=== PATIENT | female | born 1940 | race Caucasian/White ===

== ENCOUNTER → 2016-09-23 | Outpatient (CLI) | payer OTHER ==
[~2016-09-23] MED LIST: ALPR0.25 PO; AMLO10TA4 PO; ASPI81TA28 PO; CHOL100010 PO; CITA40TA12 PO; CYAN100020 PO; Cranberry PO; FERR325T51 PO; FISHOIL PO; GLC/500 PO; GLIP-197 PO; HYDR25TA4 PO; LEVO150T PO; LEVO25TA PO; LOSA50TA6 PO; METF500T PO; Magnesium; OMEP20CA59 PO; TAMO20TA47 PO; TRIM100T20 PO; VITACAP37 PO; ZCRT/40 PO
[2016-09-23 10:50] LABS: BASO % 0.4 %; BASO ABS # 0.04 K/uL (0-0.2); COMPLETE YES; EOS % 2.7 %; HEMATOCRIT 37.1 % (37-47); IG% 0.2 %; LYMPH % 23.3 %; LYMPH ABS # 2.28 K/uL (1.2-3.4); MEAN CELL VOLUME 93.9 fL (80-100); MEAN CORPUSCULAR HEMOGLOBIN 31.6 pg (25-34); MEAN CORPUSCULAR HGB CONC 33.7 g/dl (32-36); MEAN PLATELET VOLUME 10.3 fL (7.4-10.4); MONO % 6.3 %; NEUT % 67.1 %; PLATELET COUNT 183 K/uL (130-400); RED BLOOD COUNT 3.95 M/uL (4.2-5.4); WHITE BLOOD COUNT 9.77 K/uL (4.8-10.8)
[2016-09-23 11:22] LABS: ALT/SGPT 45 U/L (12-78); AST/SGOT 30 U/L (15-37); BLOOD UREA NITROGEN 24 mg/dl (7-18); BUN/CREATININE RATIO 19.6 (10-20); CALCIUM 8.8 mg/dl (8.5-10.1); CARBON DIOXIDE 26 mmol/L (21-32); CHLORIDE 108 mmol/L (98-107); GLUCOSE 130 mg/dl (70-99); POTASSIUM 4.4 mmol/L (3.5-5.1); SODIUM 142 mmol/L (136-145)
[2016-09-23 11:24] LABS: ALB/GLOB RATIO 1.1 (0.9-2); ALKALINE PHOSPHATASE 48 U/L (45-117)
--- NOTE | 2016-09-24 08:33 | CODING QUERY NO DIAGNOSIS ---
TREATMENT RENDERED WITHOUT A DIAGNOSIS To promote full compliance with coding requirements relating to patient care, physician participation is requested in all cases of materials engineering technician uncertainty. Please assist us with providing a diagnosis/symptom for the test(s) below: A diagnosis/symptom was not documented on your Order. A valid diagnosis/symptom is required to bill all insurances. Please remember that we are unable to code a diagnosis of rule out, probable, possible, questionable, or suspected. DATE OF SERVICE: 09/23/16 Tests that require a diagnosis: * CBC DIAGNOSIS: * LDH DIAGNOSIS: * COMP. METABOLIC PROFILE DIAGNOSIS: Provider Signature: Date: Thank you Ally Dixon [facility] Information Management Once completed, please kindly fax back to [phone] For questions please call [phone]
== END | disposition home or self-care (01) ==
LOC: C.LAB1850 09:02
PROVIDERS: ATTEND Nurse Practitioner Family
DX: R31.29 Other microscopic hematuria (principal); Z85.3 Personal history of malignant neoplasm of breast

== ENCOUNTER → 2016-09-26 | Outpatient (CLI) | payer OTHER | END | disposition home or self-care (01) | LOC: C.LAB1850 10:21 | PROVIDERS: ATTEND Nurse Practitioner Family | DX: N39.0 Urinary tract infection, site not specified (principal) ==

== ENCOUNTER → 2016-09-30 | Outpatient (CLI) | payer OTHER | END | disposition home or self-care (01) | LOC: C.LAB1850 14:17 | PROVIDERS: ATTEND Nurse Practitioner Adult Health | DX: R30.0 Dysuria (principal) ==

== ENCOUNTER → 2016-11-19 | Outpatient (CLI) | payer OTHER ==
[~2016-11-19] MED LIST changes: +CHOL1TAB42 PO; +CIPR250T5 PO; +CRAN250T; +FERR1TAB62 PO; +FMR25 PO; +LOSA1TAB38 PO; +MAGN400T6 PO; +OMEGCAP2 PO; +SIMV20TA2 PO; -TAMO20TA47 PO; +TAMO20TA9 PO; +TRIM100T PO; -TRIM100T20 PO
[2016-11-19 10:03] LABS: BASO % 0.5 %; BASO ABS # 0.04 K/uL (0-0.2); COMPLETE YES; EOS % 4.8 %; HEMATOCRIT 38.7 % (37-47); IG% 0.3 %; LYMPH % 30.5 %; LYMPH ABS # 2.24 K/uL (1.2-3.4); MEAN CELL VOLUME 95.1 fL (80-100); MEAN CORPUSCULAR HGB CONC 32.6 g/dl (32-36); MONO % 6.3 %; NEUT % 57.6 %; PLATELET COUNT 195 K/uL (130-400); RED BLOOD COUNT 4.07 M/uL (4.2-5.4); WHITE BLOOD COUNT 7.35 K/uL (4.8-10.8)
[2016-11-19 10:17] LABS: ESTIMATED AVERAGE GLUCOSE 148 mg/dl; HA1C FLAG Normal (Normal)
[2016-11-19 10:40] LABS: ALT/SGPT 64 U/L (12-78); BLOOD UREA NITROGEN 23 mg/dl (7-18); BUN/CREATININE RATIO 23.2 (10-20); CALCIUM 8.9 mg/dl (8.5-10.1); CARBON DIOXIDE 26 mmol/L (21-32); CHLORIDE 106 mmol/L (98-107); CREATININE 0.98 mg/dl (0.60-1.20); GLUCOSE 102 mg/dl (70-99); POTASSIUM 4.6 mmol/L (3.5-5.1); SODIUM 140 mmol/L (136-145)
[2016-11-19 10:51] LABS: ALB/GLOB RATIO 1.2 (0.9-2); ALKALINE PHOSPHATASE 58 U/L (45-117); AST/SGOT 59 U/L (15-37); CHOLESTEROL 155 mg/dl (0-200); CHOLESTEROL/HDL RATIO 3.9; HDL CHOLESTEROL 40 mg/dl; LDL CHOLESTEROL CALCULATED 87 mg/dl; TRIGLYCERIDES 139 mg/dl (0-150); VERY LOW DENSITY LIPOPROT CALC 28 mg/dl
[2016-11-19 17:15] LABS: RATIO 50.9 mcg/mg (0-30.0)
== END | disposition home or self-care (01) ==
LOC: C.LAB 09:27
PROVIDERS: ATTEND Internal Medicine
DX: E11.9 Type 2 diabetes mellitus without complications (principal); E03.9 Hypothyroidism, unspecified; I10 Essential (primary) hypertension

== ENCOUNTER → 2017-01-24 | Outpatient (CLI) | payer OTHER ==
[~2017-01-24] MED LIST changes: -CHOL1TAB42 PO; -CIPR250T5 PO; -CRAN250T; -FERR1TAB62 PO; -FMR25 PO; -LOSA1TAB38 PO; -MAGN400T6 PO; -OMEGCAP2 PO; -SIMV20TA2 PO; +TAMO20TA47 PO; -TAMO20TA9 PO; -TRIM100T PO; +TRIM100T20 PO
--- NOTE | 2017-01-24 12:43 | MAMMOGRAPHY REPORT ---
UNILATERAL LEFT DIGITAL SCREENING MAMMOGRAM TOMOSYNTHESIS WITH CAD: 01/24/2017 CLINICAL HISTORY: Asymptomatic. Personal history of breast cancer. TECHNIQUE: Breast tomosynthesis in addition to standard 2D mammography was performed. Current study was also evaluated with a Computer Aided Detection (CAD) system. Left CC and MLO 2-D and tomosynthes is images were obtained. COMPARISON: Comparison is made to exams dated: 01/23/2016 mammogram, 01/17/2015 mammogram, 01/04/2014 ma mmogram, 12/29/2012 mammogram, 12/24/2011 mammogram, and 12/18/2010 mammogram - [facility] ter. BREAST COMPOSITION: The tissue of the left breast is almost entirely fatty. FINDINGS: There are no suspicious masses, calcifications, or areas of architectural distortion noted within the left breast. There has been no significant interval change compared to prior exams. Scat tered benign-appearing calcifications are stable. IMPRESSION: ACR BI-RADS CATEGORY 2: BENIGN There is no mammographic evidence of malignancy in the left breast. A 1 year screening mammogram is r ecommended. The patient will receive written notification of the results. Approximately 10% of breast cancers are not detected with mammography. A negative mammographic report should not delay biopsy if a clinically suggestive mass is present. Renetta Montes M.D. /:01/24/2017 08:11:31 [employer] Operator: Jenni HERNANDEZ(R)(M), [facility] letter sent: Normal 1/2 BI-RADS Code: ACR BI-RADS Category 2: Benign
== END | disposition home or self-care (01) ==
LOC: C.MAMM 07:25
PROVIDERS: ATTEND Internal Medicine
DX: Z12.31 Encounter for screening mammogram for malignant neoplasm of breast (principal); Z85.3 Personal history of malignant neoplasm of breast; Z90.11 Acquired absence of right breast and nipple; Z08 Encounter for follow-up examination after completed treatment for malignant neoplasm

== ENCOUNTER → 2017-02-04 | Outpatient (CLI) | payer OTHER | END | disposition home or self-care (01) | LOC: C.PATHSPEC 17:05 | PROVIDERS: ATTEND Nurse Practitioner Family | DX: R31.29 Other microscopic hematuria (principal) ==

== ENCOUNTER → 2017-02-14 | Outpatient (CLI) | payer OTHER ==
[2017-02-14 09:34] LABS: BASO % 0.6 %; BASO ABS # 0.05 K/uL (0-0.2); COMPLETE YES; EOS % 5.4 %; HEMATOCRIT 37.8 % (37-47); IG% 0.2 %; LYMPH ABS # 2.36 K/uL (1.2-3.4); MEAN CELL VOLUME 94.3 fL (80-100); MEAN CORPUSCULAR HEMOGLOBIN 31.4 pg (25-34); MEAN CORPUSCULAR HGB CONC 33.3 g/dl (32-36); MEAN PLATELET VOLUME 10.4 fL (7.4-10.4); NEUT % 57.8 %; PLATELET COUNT 207 K/uL (130-400); RED BLOOD COUNT 4.01 M/uL (4.2-5.4); WHITE BLOOD COUNT 8.15 K/uL (4.8-10.8)
[2017-02-14 10:12] LABS: ALT/SGPT 53 U/L (12-78); AST/SGOT 41 U/L (15-37); BLOOD UREA NITROGEN 25 mg/dl (7-18); BUN/CREATININE RATIO 25.3 (10-20); CALCIUM 9.5 mg/dl (8.5-10.1); CARBON DIOXIDE 27 mmol/L (21-32); CHLORIDE 105 mmol/L (98-107); GLUCOSE 135 mg/dl (70-99); POTASSIUM 4.8 mmol/L (3.5-5.1); SODIUM 138 mmol/L (136-145)
[2017-02-14 10:15] LABS: ALB/GLOB RATIO 1.2 (0.9-2); ALKALINE PHOSPHATASE 55 U/L (45-117)
== END | disposition home or self-care (01) ==
LOC: C.LAB1850 07:45
PROVIDERS: ATTEND Internal Medicine Hematology & Oncology
DX: C50.919 Malignant neoplasm of unspecified site of unspecified female breast (principal)

== ENCOUNTER → 2017-03-21 | Outpatient (CLI) | payer OTHER ==
[2017-03-21 13:24] LABS: URINE APPEARANCE CLOUDY (CLEAR); URINE BILIRUBIN NEG (NEG); URINE COLOR DK YELLOW; URINE EPITHELIAL CELL AUTO 0-5 /lpf (0-5); URINE NITRITE NEG (NEG); UROBILINOGEN NEG (NEG); ZZUR CULT IF INDIC CLEAN CATCH YES
[2017-03-21 13:31] LABS: MANUAL MICROSCOPIC REQUIRED? NO; REVIEW REQ? NO
[2017-03-21 13:51] LABS: RATIO 130.9 mcg/mg (0-30.0)
== END | disposition home or self-care (01) ==
LOC: C.LAB1850 11:38
PROVIDERS: ATTEND Internal Medicine
DX: R80.9 Proteinuria, unspecified (principal)

== ENCOUNTER → 2017-04-10 | Outpatient (CLI) | payer OTHER | END | disposition home or self-care (01) | LOC: C.LABSPEC 17:02 → C.PATHSPEC 17:19 | PROVIDERS: ATTEND Nurse Practitioner Family | DX: R31.29 Other microscopic hematuria (principal) ==

== ENCOUNTER 2017-05-01 20:03 | Inpatient (IN) | payer OTHER ==
[~2017-05-01] VITALS: Ht 170.2 cm; Wt 95.9 kg
[2017-05-01] MEDS ORDERED: SODIUM CHLORIDE 0.9% 500ML 500 ML IV STA (21:08)
--- NOTE | 2017-05-01 21:11 | EMERGENCY ROOM VISIT NOTE ---
History Report prepared by [place]: Jurgen Elaine Under the Supervision of: Dr. Zander Gil M.D. First contact with patient: 21:00 Chief Complaint: ILLNESS Stated Complaint: SOB,VOMITING,NAUSEA History of Present Illness The patient is a 76 year old female who presents to the Emergency Room with complaints of constant weakness beginning a few days ago. The patient states she was seen at [facility] two days ago and was diagnosed with a UTI. She reports she has been experiencing cold flashes, hot flashes, and intermittent vomiting episodes for the past few days. The patient notes her last vomiting episode was about three hours ago, and she feels immediately warm and cold following her episode. She states she has also been experiencing severe dry mouth. The patient reports she went back to [facility] and was told to come to the ED because they thought her antibiotic was causing her symptoms. She notes they gave her a pill to take for her nausea. The patient states she has been breathing heavily and short of breath for the past few days as well. She reports she has not been taking her medication because she has not been feeling well and did not want to vomit it back up. The patient notes she tried calling her urologist because her UTI is reoccurring, but they never got back to her. She states she has a history of hypertension and anxiety, but she has not been taking her anxiety medication for a week because she ran out. The patient denies fevers, chest pain, new abdominal pain from her UTI symptoms, cough, and congestion. Source of History: patient Onset: few days ago Position: other (global) Quality: other (weakness) Timing: constant Associated Symptoms: + chills, + SOB, + nausea, + vomiting, No fevers, No cough, No chest pain, No abdominal pain Note: Associated symptoms: dry mouth, heavy breathing, hot flashes Denies: congestion Review of Systems See HPI for pertinent positives and negatives. A total of ten systems were reviewed and were otherwise negative. Past Medical & Surgical Medical Problems: (1) Anxiety (2) HTN (hypertension) Family History Patient reports no known family medical history. Social History Smoking Status: Never Smoker Marital Status: Housing Status: lives with family Current/Historical Medications Scheduled Amlodipine Besylate (Norvasc), 10 MG PO QAM Aspirin (Aspirin Ec), 81 MG PO QAM Cholecalciferol (Vitamin D), 5,000 UNITS PO DAILY Citalopram Hydrobromide (Celexa), 40 MG PO HS Cranberry (Vaccinium Macrocarp (Cranberry Extract), 250 MG BID Cyanocobalamin (Vitamin B12), 1 TAB PO QAM Ferrous Sulfate (Ferrous Sulfate), 325 MG PO DAILY Glipizide (Glipizide Er), 0.5 TAB PO BID Hydrochlorothiazide (Hctz), 25 MG PO QAM Letrozole (Femara), 2.5 MG PO DAILY Levothyroxine Sodium (Synthroid), 1 TAB PO QAM Levothyroxine Sodium (Synthroid), 25 MCG PO Q2D Losartan Potassium (Cozaar), 100 MG PO DAILY Magnesium Oxide (Mag-Ox), 400 MG PO DAILY Metformin Hcl (Glucophage), 500 MG PO BREAKFAST Metformin Hcl (Glucophage), 2 TABLETS PO LUNCH AND HS [place]-3 Fatty Acids (Fish Oil), 1,000 MG PO DAILY Omeprazole (Prilosec), 20 MG PO BID Simvastatin (Zocor), 20 MG PO QPM Simvastatin (Zocor), 20 MG PO QPM Tamoxifen (Nolvadex), 20 MG PO QAM Trimethoprim (Proloprim), 100 MG PO HS Vitamin E (E-400), 2 TAB PO BID Scheduled PRN Alprazolam (Xanax), 0.25 MG PO DAILY PRN for Anxiety Allergies Coded Allergies: Sulfa Antibiotics (Verified Allergy, Unknown, HIVES, 05/01/17) Physical Exam Vital Signs Date Time Temp Pulse Resp B/P (MAP) Pulse Ox O2 Delivery O2 Flow Rate FiO2 05/01/17 23:50 85 18 170/90 93 Room Air 05/01/17 23:36 38.8 05/01/17 22:00 87 22 95 Room Air 05/01/17 21:30 84 05/01/17 21:19 Room Air 05/01/17 21:19 Room Air 05/01/17 20:05 36.9 90 20 133/66 95 Room Air Physical Exam GENERAL: Awake, alert, dyspneic, uncomfortably, in no distress HENT: Normocephalic, atraumatic. Oropharynx unremarkable. Dry mucus membranes EYES: Normal conjunctiva. Sclera non-icteric. NECK: Supple. No nuchal rigidity. FROM. No JVD. RESPIRATORY: Clear to auscultation. CARDIAC: Regular rate, normal rhythm. 3/6 murmur. Extremities warm and well perfused. Pulses equal. ABDOMEN: Soft, non-distended. Mild suprapubic tenderness to palpation. No rebound or guarding. No masses. No peritoneal. RECTAL: Deferred. MUSCULOSKELETAL: Chest examination reveals no tenderness. The back is symmetrical on inspection without obvious abnormality. There is no CVA tenderness to palpation. No joint edema. LOWER EXTREMITIES: Calves are equal size bilaterally and non-tender. No edema. No discoloration. NEURO: Normal sensorium. No sensory or motor deficits noted. SKIN: No rash or jaundice noted. Medical Decision & Procedures ER Provider Diagnostic Interpretation: Radiology results as stated below per my review and radiologist interpretation: CHEST ONE VIEW PORTABLE CLINICAL HISTORY: Chest pain and shortness of breath COMPARISON STUDY: Chest radiograph December 19, 2015. FINDINGS: Lung volumes are normal. No pneumothorax or pleural effusion is present. Cardiomediastinal silhouette is stable. There is no consolidation to suggest pneumonia. Mild interstitial thickening is unchanged and likely chronic. IMPRESSION: No change in appearance of the chest. Mild interstitial thickening which is likely chronic. Mild pulmonary edema could appear similar but is considered less likely. Electronically signed by: Josué Norton M.D. 05/01/2017 10:19 PM Dictated Date/Time: 05/01/2017 10:18 PM Laboratory Results 05/01/17 21:33 Red Blood Count 3.94, Mean Corpuscular Volume 91.9, Mean Corpuscular Hemoglobin 32.0, Mean Corpuscular Hemoglobin Concent 34.8, Mean Platelet Volume 9.9, Neutrophils (%) (Auto) 73.2, Lymphocytes (%) (Auto) 10.3, Monocytes (%) (Auto) 16.1, Eosinophils (%) (Auto) 0.0, Basophils (%) (Auto) 0.2, Neutrophils # (Auto ) 7.25, Lymphocytes # (Auto) 1.02, Monocytes # (Auto) 1.59, Eosinophils # (Auto ) 0.00, Basophils # (Auto) 0.02 05/01/17 21:33 Test 05/01/17 21:20 05/01/17 21:33 05/01/17 21:35 Urine Color DK YELLOW Urine Appearance TURBID (CLEAR) Urine pH 6.0 (4.5-7.5) Urine Specific [place] 1.019 (1.000-1.030) Urine Protein 3+ (NEG) Urine Glucose (UA) NEG (NEG) Urine Ketones TRACE (NEG) Urine Occult Blood 2+ (NEG) Urine Nitrite NEG (NEG) Urine Bilirubin NEG (NEG) Urine Urobilinogen NEG (NEG) Urine Leukocyte Esterase LARGE (NEG) Urine WBC (Auto) >30 /hpf (0-5) Urine RBC (Auto) 0-4 /hpf (0-4) Urine Hyaline Casts (Auto) 0 /lpf (0-5) Urine Epithelial Cells (Auto) 0-5 /lpf (0-5) Urine Bacteria (Auto) 4+ (NEG) Urine Pathogenic Casts /lpf (0) Urine Yeast (Auto) (NONE PRSENT) White Blood Count 9.90 K/uL (4.8-10.8) Red Blood Count 3.94 M/uL (4.2-5.4) Hemoglobin 12.6 g/dL (12.0-16.0) Hematocrit 36.2 % (37-47) Mean Corpuscular Volume 91.9 fL (80-100) Mean Corpuscular Hemoglobin 32.0 pg (25-34) Mean Corpuscular Hemoglobin Concent 34.8 g/dl (32-36) Platelet Count 191 K/uL (130-400) Mean Platelet Volume 9.9 fL (7.4-10.4) Neutrophils (%) (Auto) 73.2 % Lymphocytes (%) (Auto) 10.3 % Monocytes (%) (Auto) 16.1 % Eosinophils (%) (Auto) 0.0 % Basophils (%) (Auto) 0.2 % Neutrophils # (Auto) 7.25 K/uL (1.4-6.5) Lymphocytes # (Auto) 1.02 K/uL (1.2-3.4) Monocytes # (Auto) 1.59 K/uL (0.11-0.59) Eosinophils # (Auto) 0.00 K/uL (0-0.5) Basophils # (Auto) 0.02 K/uL (0-0.2) RDW Standard Deviation 44.8 fL (36.4-46.3) RDW Coefficient of Variation 13.4 % (11.5-14.5) Immature Granulocyte % (Auto) 0.2 % Immature Granulocyte # (Auto) 0.02 K/uL (0.00-0.02) Anion Gap 7.0 mmol/L (3-11) Est Creatinine Clear Calc Drug Dose 40.4 ml/min Estimated GFR () 42.9 Estimated GFR (Non- 37.0 BUN/Creatinine Ratio 22.2 (10-20) Calcium Level 9.3 mg/dl (8.5-10.1) Total Bilirubin 0.6 mg/dl (0.2-1) Direct Bilirubin 0.2 mg/dl (0-0.2) Aspartate Amino Transf (AST/SGOT) 20 U/L (15-37) Alanine Aminotransferase (ALT/SGPT) 29 U/L (12-78) Alkaline Phosphatase 65 U/L (45-117) Troponin I < 0.015 ng/ml (0-0.045) Pro-B-Type Natriuretic Peptide 1328 pg/ml (0-1800) Total Protein 7.6 gm/dl (6.4-8.2) Albumin 3.4 gm/dl (3.4-5.0) Lipase 54 U/L (73-393) Procalcitonin 1.17 ng/ml (0-0.5) Laboratory results reviewed by me Medications Administered Medications (Trade) Dose Ordered Sig/[place] Route Start Time Stop Time Status Last Admin Dose Admin Sodium Chloride 500 ml @ 999 mls/hr Q31M STAT IV 05/01/17 21:08 05/01/17 21:38 DC 05/01/17 21:45 999 MLS/HR Ondansetron HCl (Zofran Inj) 4 mg NOW STAT IV 05/01/17 23:07 05/01/17 23:09 DC 05/01/17 23:14 4 MG Sodium Chloride 1,000 ml @ 999 mls/hr Q1H1M STAT IV 05/01/17 23:07 05/02/17 00:07 DC 05/01/17 23:33 999 MLS/HR Vancomycin HCl 1800 mg/Sodium Chloride 536 ml @ 200 mls/hr ONE STAT IV 05/01/17 23:07 05/02/17 01:47 DC 05/02/17 00:41 200 MLS/HR Piperacillin Sod/ Tazobactam Sod (Zosyn Iv) 3.375 gm NOW STAT IV 05/01/17 23:07 05/01/17 23:09 DC 05/01/17 23:33 3.375 GM Acetaminophen 100 ml @ 400 mls/hr NOW STAT IV 05/01/17 23:36 05/01/17 23:50 DC 05/01/17 23:44 400 MLS/HR ECG Indication: weakness Rate (beats per minute): 77 Rhythm: normal sinus Findings: no acute ischemic change, other (Normal axis, normal intervals) ED Course 2102: The patient was evaluated in room B04B. A complete history and physical exam was performed. 2107: Ordered Sodium Chloride 500 ml @ 999 mls/hr IV 2303: Upon reexamination, the patient was resting and still had discomfort. I discussed the test results and treatment plan with her. The patient will be evaluated for further management. 2306: Ordered Piperacillin Sod/Tazobactam Sod 3.375gm IV, Vancomycin HCl 1800mg/ Sodium Chloride 536 ml @ 200 mls/hr, Sodium Chloride 1000 ml @ 999 mls/hr IV, Ondansetron HCl 4mg IV 2311: I discussed the patient's case with the [facility] Hospitalist. The patient will be evaluated for further management and care. Medical Decision I reviewed the patient's past medical history, medications, and the nursing notes as described above. Differential diagnosis: pneumonia, bronchitis, ACS, PE , CHF, UTI, pyelonephritis, dehydration, electrolyte abnormality. The patient is a 76-year-old woman who presents emergency Department with worsening urinary symptoms and dyspnea in the setting of being treated outpatient for a UTI per history of present illness. On arrival the patient appears uncomfortable, dyspneic, rate in the low 100s, vital signs otherwise stable. WBC within normal limits, lactate elevated to 2.1., UA grossly positive. CXR unremarkable. Patient having persistent nausea and dry heaving. Heart rate improved with IV fluids to 80s. Given the patient's symptoms in the setting of the elevated lactate and UTI will treat for early sepsis with broad-spectrum antibiotics. Case was discussed with the admitting team will admit the patient for further management. Medication Reconcilliation Current Medication List: was personally reviewed by me Blood Pressure Screening Patient's blood pressure: Normal blood pressure Blood pressure disposition: Did not require urgent referral Consults Time Called: 2306 Consulting Physician: [facility] Hospitalist Returned Call: [phone] I discussed the patient's case with the [facility] Hospitalist. The patient will be evaluated for further management and care. Impression Primary Impression: UTI (urinary tract infection) Additional Impression: Sepsis Critical Care I have personally spent greater than 35 minutes of critical care time in the direct management of this patient. This includes bedside care, interpretation of diagnostic studies, and testing, discussion with consultants, patient, and family members, and other required patient management activities. This 35 minutes is in excess of all separately billable procedures. Scribe Attestation The scribe's documentation has been prepared under my direction and personally reviewed by me in its entirety. I confirm that the note above accurately reflects all work, treatment, procedures, and medical decision making performed by me. Departure Information Dispostion Being Evaluated By Hospitalist Referrals RV. Urbina MD (PCP) Patient Instructions My [facility] Problem Qualifiers
[2017-05-01] MEDS ORDERED: SIMV20TA2 PO (21:29)
[2017-05-01] MEDS ORDERED: CHOL1TAB42 PO (21:29)
[2017-05-01] MEDS ORDERED: CRAN250T (21:29)
[2017-05-01] MEDS ORDERED: LOSA1TAB38 PO (21:29)
[2017-05-01] MEDS ORDERED: FERR325T PO (21:29)
[2017-05-01] MEDS ORDERED: FMR25 PO (21:29)
[2017-05-01] MEDS ORDERED: MAGN400T6 PO (21:29)
[2017-05-01] MEDS ORDERED: OMEGCAP2 PO (21:29)
[2017-05-01 22:07] LABS: BASO % 0.2 %; BASO ABS # 0.02 K/uL (0-0.2); COMPLETE YES; HEMATOCRIT 36.2 % (37-47); IG% 0.2 %; LYMPH % 10.3 %; LYMPH ABS # 1.02 K/uL (1.2-3.4); MEAN CELL VOLUME 91.9 fL (80-100); MEAN CORPUSCULAR HGB CONC 34.8 g/dl (32-36); MEAN PLATELET VOLUME 9.9 fL (7.4-10.4); MONO % 16.1 %; NEUT % 73.2 %; PLATELET COUNT 191 K/uL (130-400); RED BLOOD COUNT 3.94 M/uL (4.2-5.4)
[2017-05-01 22:17] LABS: URINE APPEARANCE TURBID (CLEAR); URINE BILIRUBIN NEG (NEG); URINE COLOR DK YELLOW; URINE NITRITE NEG (NEG); URINE SPECIFIC GRAVITY 1.019 (1.000-1.030); UROBILINOGEN NEG (NEG); ZZUR CULT IF INDIC CLEAN CATCH YES
--- NOTE | 2017-05-01 22:21 | DIAGNOSTIC IMAGING REPORT ---
CHEST ONE VIEW PORTABLE CLINICAL HISTORY: Chest pain and shortness of breath COMPARISON STUDY: Chest radiograph December 19, 2015. FINDINGS: Lung volumes are normal. No pneumothorax or pleural effusion is present. Cardiomediastinal silhouette is stable. There is no consolidation to suggest pneumonia. Mild interstitial thickening is unchanged and likely chronic. IMPRESSION: No change in appearance of the chest. Mild interstitial thickening which is likely chronic. Mild pulmonary edema could appear similar but is considered less likely. Electronically signed by: Josué Norton M.D. 05/01/2017 10:19 PM Dictated Date/Time: 05/01/2017 10:18 PM
[2017-05-01 22:22] LABS: MANUAL MICROSCOPIC REQUIRED? NO; REVIEW REQ? YES
[2017-05-01 22:26] LABS: ALT/SGPT 29 U/L (12-78); AST/SGOT 20 U/L (15-37); BLOOD UREA NITROGEN 31 mg/dl (7-18); BUN/CREATININE RATIO 22.2 (10-20); CALCIUM 9.3 mg/dl (8.5-10.1); CARBON DIOXIDE 25 mmol/L (21-32); CHLORIDE 101 mmol/L (98-107); CREATININE 1.38 mg/dl (0.60-1.20); GLUCOSE 179 mg/dl (70-99); POTASSIUM 3.7 mmol/L (3.5-5.1); SODIUM 133 mmol/L (136-145)
[2017-05-01 22:31] LABS: ALKALINE PHOSPHATASE 65 U/L (45-117)
[2017-05-01 22:48] LABS: URINE EPITHELIAL CELL AUTO 0-5 /lpf (0-5)
[2017-05-01] MEDS ORDERED: PIPERACILLIN/TAZOBACTAM 3.375 GM/100ML D5W IV STA (23:07)
[2017-05-01] MEDS ORDERED: VANCOMYCIN INJ 1,800 MG in SODIUM CHLORIDE 0.9% 500ML 500 ML IV STA (23:07)
[2017-05-01] MEDS ORDERED: SODIUM CHLORIDE 0.9% 1000ML 1,000 ML IV STA (23:07)
[2017-05-01] MEDS ORDERED: ONDANSETRON INJ 2 MG/ML 2 ML VIAL IV STA (23:07)
[2017-05-01] MEDS ORDERED: ACETAMINOPHEN IV 100 ML IV STA (23:36)
--- NOTE | 2017-05-01 23:59 | History and Physical ---
History & Physical Date & Time of Service: May 01, 2017 at 23:59 Chief Complaint: Sob,Vomiting,Nausea Primary Care Physician: RV. Urbina MD History of Present Illness Source: patient, hospital records This is a 76 yo f with a history of DM, HTN that presents to us with N&V, generalized weakness. She states that her symptoms originally started a few days prior. She went to [facility] two days prior and she was diagnosed with a UTI and started on Trimethorpim. She had worsening of symptoms which included nausea and vomiting, generalized weakness and ongoing dysuria. She went to [facility] again tonight however she was recommended to come to the ED for evaluation. She currently denies any pain however she states that she feels "achy". She was compliant with her antibiotic. Past Medical/Surgical History Anxiety HTN Hyperlipidemia Hypothyroidism Breast ca s/p left mastectomy; remission Family History Patient reports no known family medical history. Social History Smoking Status: Never Smoker Smokeless Tobacco Use: No Alcohol Use: none Drug Use: none Marital Status: Housing status: lives with family Immunizations History of Influenza Vaccine: Yes Influenza Vaccine Date: Apr 09, 2011 History of Tetanus Vaccine?: Yes Tetanus Immunization Date: Apr 13, 2012 History of Pneumococcal: Yes History of Hepatitis B Vaccine: No Multi-Drug Resistant Organisms History of MDRO: No Allergies Coded Allergies: Sulfa Antibiotics (Verified Allergy, Unknown, HIVES, 05/01/17) Home Medications Scheduled Amlodipine Besylate (Norvasc), 10 MG PO QAM Aspirin (Aspirin Ec), 81 MG PO QAM Cholecalciferol (Vitamin D), 5,000 UNITS PO DAILY Citalopram Hydrobromide (Celexa), 40 MG PO HS Cranberry (Vaccinium Macrocarp (Cranberry Extract), 250 MG BID Cyanocobalamin (Vitamin B12), 1 TAB PO QAM Ferrous Sulfate (Ferrous Sulfate), 325 MG PO DAILY Glipizide (Glipizide Er), 0.5 TAB PO BID Hydrochlorothiazide (Hctz), 25 MG PO QAM Letrozole (Femara), 2.5 MG PO DAILY Levothyroxine Sodium (Synthroid), 1 TAB PO QAM Levothyroxine Sodium (Synthroid), 25 MCG PO Q2D Losartan Potassium (Cozaar), 100 MG PO DAILY Magnesium Oxide (Mag-Ox), 400 MG PO DAILY Metformin Hcl (Glucophage), 500 MG PO BREAKFAST Metformin Hcl (Glucophage), 2 TABLETS PO LUNCH AND HS [place]-3 Fatty Acids (Fish Oil), 1,000 MG PO DAILY Omeprazole (Prilosec), 20 MG PO BID Simvastatin (Zocor), 20 MG PO QPM Simvastatin (Zocor), 20 MG PO QPM Tamoxifen (Nolvadex), 20 MG PO QAM Trimethoprim (Proloprim), 100 MG PO HS Vitamin E (E-400), 2 TAB PO BID Scheduled PRN Alprazolam (Xanax), 0.25 MG PO DAILY PRN for Anxiety Review of Systems Constitutional: + chills, + sweats, + weakness, + fatigue, No fever Eyes: No worsening of vision ENT: No hearing loss Respiratory: No cough, No sputum, No wheezing, No shortness of breath, No dyspnea on exertion, No dyspnea at rest Cardiovascular: No chest pain Abdomen: + nausea, + vomiting, No pain, No diarrhea, No constipation Musculoskeletal: + muscle pain, No joint pain Genitourinary - Female: + dysuria, No hematuria Neurologic: + weakness, No numbness/tingling, No balance problems Psychiatric: + anxiety, No depression symptoms Endocrine: + fatigue Hematologic / Lymphatic: No abnormal bleeding/bruising Integumentary: No rash Physical Exam Vital Signs Date Time Temp Pulse Resp B/P (MAP) Pulse Ox O2 Delivery O2 Flow Rate FiO2 05/01/17 23:50 85 18 170/90 93 Room Air 05/01/17 23:36 38.8 05/01/17 22:00 87 22 95 Room Air 05/01/17 21:30 84 05/01/17 21:19 Room Air 05/01/17 21:19 Room Air 05/01/17 20:05 36.9 90 20 133/66 95 Room Air General Appearance: + mild distress Head: normocephalic, atraumatic Eyes: normal inspection ENT: normal ENT inspection Neck: supple Respiratory/Chest: normal breath sounds, no respiratory distress, no accessory muscle use Cardiovascular: normal peripheral pulses, + tachycardia, + systolic murmur (3/6 ) Abdomen/GI: normal bowel sounds, non tender, soft Back: no CVA tenderness Extremities/Musculoskelatal: no calf tenderness, no pedal edema, normal range of motion Neurologic/Psych: alert, normal mood/affect, oriented x 3 Skin: normal color, warm/dry, no rash Lymphatic: no adenopathy Diagnostics Laboratory Results Results Past 24 Hours Test 05/01/17 21:20 05/01/17 21:33 05/01/17 21:35 Range/Units Urine Color DK YELLOW Urine Appearance TURBID CLEAR Urine pH 6.0 4.5-7.5 Urine Specific [place] 1.019 1.000-1.030 Urine Protein 3+ NEG Urine Glucose (UA) NEG NEG Urine Ketones TRACE NEG Urine Occult Blood 2+ NEG Urine Nitrite NEG NEG Urine Bilirubin NEG NEG Urine Urobilinogen NEG NEG Urine Leukocyte Esterase LARGE NEG Urine WBC (Auto) >30 0-5 /hpf Urine RBC (Auto) 0-4 0-4 /hpf Urine Hyaline Casts (Auto) 0 0-5 /lpf Urine Epithelial Cells (Auto) 0-5 0-5 /lpf Urine Bacteria (Auto) 4+ NEG Urine Pathogenic Casts 0 /lpf Urine Yeast (Auto) NONE PRSENT White Blood Count 9.90 4.8-10.8 K/uL Red Blood Count 3.94 4.2-5.4 M/uL Hemoglobin 12.6 12.0-16.0 g/dL Hematocrit 36.2 37-47 % Mean Corpuscular Volume 91.9 80-100 fL Mean Corpuscular Hemoglobin 32.0 25-34 pg Mean Corpuscular Hemoglobin Concent 34.8 32-36 g/dl Platelet Count 191 130-400 K/uL Mean Platelet Volume 9.9 7.4-10.4 fL Neutrophils (%) (Auto) 73.2 % Lymphocytes (%) (Auto) 10.3 % Monocytes (%) (Auto) 16.1 % Eosinophils (%) (Auto) 0.0 % Basophils (%) (Auto) 0.2 % Neutrophils # (Auto) 7.25 1.4-6.5 K/uL Lymphocytes # (Auto) 1.02 1.2-3.4 K/uL Monocytes # (Auto) 1.59 0.11-0.59 K/uL Eosinophils # (Auto) 0.00 0-0.5 K/uL Basophils # (Auto) 0.02 0-0.2 K/uL RDW Standard Deviation 44.8 36.4-46.3 fL RDW Coefficient of Variation 13.4 11.5-14.5 % Immature Granulocyte % (Auto) 0.2 % Immature Granulocyte # (Auto) 0.02 0.00-0.02 K/uL Sodium Level 133 136-145 mmol/L Potassium Level 3.7 3.5-5.1 mmol/L Chloride Level 101 98-107 mmol/L Carbon Dioxide Level 25 21-32 mmol/L Anion Gap 7.0 3-11 mmol/L Blood Urea Nitrogen 31 7-18 mg/dl Creatinine 1.38 0.60-1.20 mg/dl Est Creatinine Clear Calc Drug Dose 40.4 ml/min Estimated GFR () 42.9 Estimated GFR (Non- 37.0 BUN/Creatinine Ratio 22.2 10-20 Random Glucose 179 70-99 mg/dl Calcium Level 9.3 8.5-10.1 mg/dl Total Bilirubin 0.6 0.2-1 mg/dl Direct Bilirubin 0.2 0-0.2 mg/dl Aspartate Amino Transf (AST/SGOT) 20 15-37 U/L Alanine Aminotransferase (ALT/SGPT) 29 12-78 U/L Alkaline Phosphatase 65 45-117 U/L Troponin I < 0.015 0-0.045 ng/ml Pro-B-Type Natriuretic Peptide 1328 0-1800 pg/ml Total Protein 7.6 6.4-8.2 gm/dl Albumin 3.4 3.4-5.0 gm/dl Lipase 54 73-393 U/L Lactic Acid Level 2.3 0.4-2.0 mmol/L Microbiology Results 05/01/17 Blood Culture, Received Pending 05/01/17 Blood Culture, Received Pending 05/01/17 Urine Culture, Received Pending Diagnostic Radiology CHEST ONE VIEW PORTABLE CLINICAL HISTORY: Chest pain and shortness of breath COMPARISON STUDY: Chest radiograph December 19, 2015. FINDINGS: Lung volumes are normal. No pneumothorax or pleural effusion is present. Cardiomediastinal silhouette is stable. There is no consolidation to suggest pneumonia. Mild interstitial thickening is unchanged and likely chronic. IMPRESSION: No change in appearance of the chest. Mild interstitial thickening which is likely chronic. Mild pulmonary edema could appear similar but is considered less likely. Impression Assessment and Plan This is a 76 yo f that is suffering from sepsis secondary to a urinary source. Will assess kidneys with a USG. Patient has been placed on broad spectrum abx at this time with blood and urine cultures pending. Sepsis most likely secondary to urinary source - tele admission - continue zosyn and vanco from ed - repeat lactate and add procalcitonin - received 1500 cc NSS in the ED - Zofran for nausea CBC recheck in the am however leukocytosis is not noted - urine culture and blood culture pending - renal USG BEHZAD on CKD III - NSS @ 125 cc/h - recheck BMP in the am Hyponatremia - NSS @ 125 cc/h as noted above DMII - insulin ISS and BSG Ac/ HS - Metformin and Glipizide held HTN - Amlodipine 10 mg daily HCTZ 25 mg cont'd Hyperlipidemia - continue simvastatin 20 mg daily Anxiety - Zanax 2.5 mg prn - Citalopram 40 mg daily Breast cancer; remission - continue Femara and Tamoxifen GERD - Protonix 40 mg daily Hypothyroidism - continue synthroid; 150 mcg daily with 25 mcg q2days DVT Prophylaxis - SCD, heparin bid Attending Addendum: I have physically seen and examined this patient, have directed the resident's medical activities, and agree with the H&P as noted above with the following exceptions as noted. The patient is awake, alert and oriented 3, well-developed and well-nourished , normocephalic and atraumatic, lying in bed and in no acute distress. HEENT--PERRL, EOMI, mucous membranes and oropharynx dry. Neck--supple, no JVD or bruits, thyroid normal, trachea midline, no adenopathy. Heart--tachycardic and regular. Systolic murmurs. No rubs or gallops. Lungs--clear bilaterally with good air movement, no respiratory distress, no accessory muscle use. Abdomen--normal bowel sounds and soft, nontender and nondistended, no hernias or masses, no organomegaly. Extremities--no cyanosis, clubbing or edema. There are good distal pulses b/l. Dermatologic--normal skin turgor, normal color, warm and dry, no abnormal lymph nodes, no rash. Neurologic--cranial nerves II through XII grossly intact. Rheumatologic--normal range of motion. Psychiatric--normal affect. Assessment and Plan: Sepsis secondary to urinary tract infection/acute on chronic kidney disease/ hyponatremia-- Admit to telemetry for close monitoring of blood pressure. Continue Zosyn and vancomycin begun in the ED. Zofran 4 mg IV every 6 hours when necessary. Follow urine culture and blood culture and sensitivities. Order renal ultrasound to assess for any renal complications such as perinephric abscess. Continue to hydrate with IV fluids. Hold HCTZ. Continue amlodipine. Repeat BMP and magnesium level in a.m. Diabetes mellitus-- Hold metformin and glipizide. Place on Accu-Cheks before meals and at bedtime with NovoLog coverage per scale. Chronic interstitial lung disease/intermittent borderline hypoxia while in the ED-- Monitor oxygen closely while on telemetry, would start nasal cannula oxygen and pulse ox is consistently below 91%. Level of Care Telemetry Advanced Directives Existing Advance Directive: No Existing Living Will: No Existing Power of Instant Printer Operator: No Resuscitation Status FULL RESUSCITATION VTE Prophylaxis VTE Risk Assessment Done? Y/N: Yes Risk Level: Moderate Given or contraindicated: Unfractionated heparin SQ, SCD's Social Service Consult None Apply Note Total Time: Critical Care 30 - 74 minutes Additional Copies To RV. Urbina MD
[2017-05-02] VITALS (7 sets, daily range): BP systolic 126–171; BP diastolic 61–80; PULSE 64–89; TEMP 36.7–37.5; O2SAT 90–95; Ht 170.2 cm; Wt 95.9 kg
[2017-05-02] MEDS ORDERED: ALPRAZOLAM 0.25 MG TAB PO PRN
[2017-05-02] MEDS ORDERED: ACETAMINOPHEN 325 MG TAB PO PRN
[2017-05-02] MEDS ORDERED: SODIUM CHLORIDE 0.9% 1000ML 1,000 ML IV ONE
[2017-05-02] MEDS ORDERED: MAGNESIUM HYDROXIDE SUSP 30 ML UDC PO PRN
[2017-05-02] MEDS ORDERED: ONDANSETRON INJ 2 MG/ML 2 ML VIAL IV PRN
[2017-05-02] MEDS ORDERED: ACETAMINOPHEN IV 650 MG in EMPTY BAG 0 ML IV PRN
[2017-05-02] MEDS ORDERED: POLYETHYLENE (MIRALAX) 17 GM PACK PO PRN
[2017-05-02] MEDS ORDERED: ALUMINUM/MAGNESIUM/SIMETH (MAALOX MAX) 30 ML UDC PO PRN
[2017-05-02] MEDS ORDERED: VANCOMYCIN CONSULT ACTIVE PRN (02:30)
[2017-05-02] MEDS ORDERED: PIPERACILL/TAZOBAC CONSULT ACTIVE PRN (02:30)
[2017-05-02] MEDS: SODIUM CHLORIDE 0.9% 1000ML 1,000 ML IV SCH ×3 (02:45→19:27)
[2017-05-02] MEDS: PIPERACILL/TAZOBAC IV 3.375 GM in DEXTROSE 5% 100ML 100 ML IV SCH ×3 (04:17→19:44)
[2017-05-02] MEDS ORDERED: INFLUENZA VACCINE HIGH DOSE 65+ 0.5 ML SYR IM. ONE (04:45)
[2017-05-02] MEDS: LEVOTHYROXINE 150 MCG TAB PO SCH (05:42)
[2017-05-02] MEDS ORDERED: LEVOTHYROXINE 25 MCG TAB PO SCH (06:00)
[2017-05-02 07:04] LABS: BASO % 0.2 %; BASO ABS # 0.02 K/uL (0-0.2); COMPLETE YES; HEMATOCRIT 36.9 % (37-47); IG% 0.2 %; LYMPH % 13.3 %; LYMPH ABS # 1.34 K/uL (1.2-3.4); MEAN CELL VOLUME 92.3 fL (80-100); MEAN CORPUSCULAR HEMOGLOBIN 31.8 pg (25-34); MEAN CORPUSCULAR HGB CONC 34.4 g/dl (32-36); MEAN PLATELET VOLUME 9.8 fL (7.4-10.4); MONO % 16.7 %; NEUT % 69.6 %; PLATELET COUNT 183 K/uL (130-400); WHITE BLOOD COUNT 10.05 K/uL (4.8-10.8)
[2017-05-02 07:10] LABS: INR 1.1 (0.9-1.1); PARTIAL THROMBOPLASTIN RATIO 1.1; PROTHROMBIN TIME (PATIENT) 11.7 SECONDS (9.0-12.0)
--- NOTE | 2017-05-02 07:15 | DIAGNOSTIC IMAGING REPORT ---
ULTRASOUND KIDNEYS AND BLADDER CLINICAL HISTORY: Urinary tract infection. Sepsis. COMPARISON STUDY: Renal ultrasound dated 11/21/2015. Abdominal CT dated 07/06/2012. TECHNIQUE: Real-time, grayscale, and color flow sonography of the kidneys and bladder is performed. Images are reviewed in the transverse and longitudinal planes. FINDINGS: Kidneys: The kidneys are normal in size and echotexture. The right kidney measures 10.9 x 4.0 x 5.0 cm and the left kidney measures 11.6 x 5.9 x 6.1 cm. There is no hydronephrosis. No shadowing renal calculi are identified. There is no sonographic evidence of contour deforming renal mass lesion. Parapelvic cysts are suggested on the left. No perinephric fluid is identified. Bladder: The bladder is decompressed. Intraluminal debris is noted. Ureteral jets were not seen. Upper abdomen: Survey images of the liver show hepatomegaly and severe hepatic steatosis. IMPRESSION: 1. The kidneys are normal in size and without hydronephrosis. 2. The bladder is largely decompressed and contains intraluminal debris. Correlation with clinical findings and urinalysis will be required. 3. Hepatomegaly and severe hepatic steatosis. Electronically signed by: Jonel Krishna M.D. 05/02/2017 7:13 AM Dictated Date/Time: 05/02/2017 7:11 AM
[2017-05-02 07:26] LABS: BUN/CREATININE RATIO 19.6 (10-20); CREATININE 1.35 mg/dl (0.60-1.20); POTASSIUM 4.1 mmol/L (3.5-5.1)
[2017-05-02 07:29] LABS: ALB/GLOB RATIO 0.8 (0.9-2)
[2017-05-02] MEDS: PANTOprazole SOD 40 MG TAB PO SCH ×2 (07:58→19:46)
[2017-05-02] MEDS: AMLODIPINE BESYLATE 5 MG TAB PO SCH (07:59)
[2017-05-02] MEDS: FERROUS SULFATE 325 MG TAB PO SCH (07:59)
[2017-05-02] MEDS: OMEGA-3 (PURIFIED FISH OIL) 1 GM CAP PO SCH (07:59)
[2017-05-02] MEDS: ASPIRIN 81 MG ECTAB PO SCH (07:59)
[2017-05-02] MEDS: LETROZOLE 2.5 MG TAB PO SCH (07:59)
[2017-05-02] MEDS: CHOLECALCIFEROL 1000 INTER.UNIT TAB PO SCH (08:00)
[2017-05-02] MEDS: TAMOXIFEN CITRATE 10 MG TAB PO SCH (08:01)
[2017-05-02] MEDS: TOCOPHERYL, DL-ALPHA 400 INTER.UNIT CAP PO SCH ×2 (08:01→19:46)
[2017-05-02] MEDS: CYANOCOBALAMIN 500 MCG TAB (VIT B-12) PO SCH (08:02)
[2017-05-02] MEDS: MAGNESIUM OXIDE 400 MG TAB PO SCH (08:02)
[2017-05-02] MEDS: LOSARTAN POTASSIUM 50 MG TAB PO SCH (08:02)
[2017-05-02] MEDS: HEPARIN SOD 5000 UNIT/0.5 ML CARP SQ SCH ×2 (08:37→21:08)
[2017-05-02] MEDS ORDERED: CRANBERRY SCH (09:00)
[2017-05-02] MEDS ORDERED: HYDROCHLOROTHIAZIDE 25 MG TAB PO SCH (09:00)
[2017-05-02] MEDS ORDERED: VANCOMYCIN INJ 1,000 MG in SODIUM CHLORIDE 0.9% 250ML 250 ML IV SCH (09:00)
[2017-05-02] MEDS ORDERED: PHENAZOPYRIDINE HCL 200 MG TAB PO STA (10:38)
[2017-05-02] MEDS ORDERED: PHENAZOPYRIDINE HCL 100 MG TAB PO PRN (10:45)
[2017-05-02] MEDS ORDERED: RIVAROXABAN 20 MG TAB PO SCH (17:00)
--- NOTE | 2017-05-02 17:23 | Family Medicine Progress Note ---
Progress Note Date of Service May 02, 2017. Subjective Pt evaluation today including: conversation w/ patient, physical exam, chart review, lab review, review of studies, conversation w/ computer consultant, review of inpatient medication list Patient currently sitting comfortably out of bed. She states that her nausea has improved with antiemetic medication. She has had no vomiting episodes since admission. She is no longer feeling febrile or having chills. She states is still having urinary symptoms and would like medication for relief. She also continues to have urgency, frequency, nocturia. She denies any xochilt hematuria. When asked about her breathing she states people keep asking her if she is feeling short of breath but states that she is feeling comfortable. She has never had a sleep study or used CPAP/BiPAP, but she has been told that she snores. She is tolerating diet and stooling appropriately. All Other Systems: Reviewed and Negative Objective Vital Signs Date Time Temp Pulse Resp B/P (MAP) Pulse Ox O2 Delivery O2 Flow Rate FiO2 05/02/17 12:23 37.5 89 20 151/76 (101) 95 Room Air 05/02/17 12:00 Room Air 05/02/17 08:11 36.8 22 171/61 (97) 94 Room Air 05/02/17 08:00 Room Air 05/02/17 04:00 Room Air 05/02/17 03:47 36.9 64 20 126/70 (88) 94 Room Air 05/02/17 01:38 36.8 78 18 142/65 94 Room Air 05/02/17 01:20 79 29 90 05/02/17 01:05 79 25 96 05/02/17 01:00 77 22 05/02/17 00:45 83 26 94 05/02/17 00:39 146/50 05/02/17 00:34 37.6 05/01/17 23:50 85 18 170/90 93 Room Air 05/01/17 23:36 38.8 05/01/17 22:00 87 22 95 Room Air 05/01/17 21:30 84 05/01/17 21:19 Room Air 05/01/17 21:19 Room Air 05/01/17 20:05 36.9 90 20 133/66 95 Room Air Physical Exam General Appearance: WD/WN, no apparent distress, + pertinent finding Eyes: normal inspection ENT: hearing grossly normal, pharynx normal Neck: supple, no adenopathy Respiratory/Chest: lungs clear, normal breath sounds, no respiratory distress, no accessory muscle use, + pertinent finding (breathing appears effortful) Cardiovascular: regular rate, rhythm, no edema, + systolic murmur, + normal peripheral pulses Abdomen: normal bowel sounds, non tender, soft, + pertinent finding (no CVA tenderness) Extremities: no pedal edema, no calf tenderness Neurologic/Psychiatric: alert, normal mood/affect, oriented x 3 Skin: normal color, warm/dry, no rash Laboratory Results Results Past 24 Hours Test 05/01/17 21:20 05/01/17 21:33 05/01/17 21:35 05/02/17 00:34 Range/Units Urine Color DK YELLOW Urine Appearance TURBID CLEAR Urine pH 6.0 4.5-7.5 Urine Specific [place] 1.019 1.000-1.030 Urine Protein 3+ NEG Urine Glucose (UA) NEG NEG Urine Ketones TRACE NEG Urine Occult Blood 2+ NEG Urine Nitrite NEG NEG Urine Bilirubin NEG NEG Urine Urobilinogen NEG NEG Urine Leukocyte Esterase LARGE NEG Urine WBC (Auto) >30 0-5 /hpf Urine RBC (Auto) 0-4 0-4 /hpf Urine Hyaline Casts (Auto) 0 0-5 /lpf Urine Epithelial Cells (Auto) 0-5 0-5 /lpf Urine Bacteria (Auto) 4+ NEG Urine Pathogenic Casts 0 /lpf Urine Yeast (Auto) NONE PRSENT White Blood Count 9.90 4.8-10.8 K/uL Red Blood Count 3.94 4.2-5.4 M/uL Hemoglobin 12.6 12.0-16.0 g/dL Hematocrit 36.2 37-47 % Mean Corpuscular Volume 91.9 80-100 fL Mean Corpuscular Hemoglobin 32.0 25-34 pg Mean Corpuscular Hemoglobin Concent 34.8 32-36 g/dl Platelet Count 191 130-400 K/uL Mean Platelet Volume 9.9 7.4-10.4 fL Neutrophils (%) (Auto) 73.2 % Lymphocytes (%) (Auto) 10.3 % Monocytes (%) (Auto) 16.1 % Eosinophils (%) (Auto) 0.0 % Basophils (%) (Auto) 0.2 % Neutrophils # (Auto) 7.25 1.4-6.5 K/uL Lymphocytes # (Auto) 1.02 1.2-3.4 K/uL Monocytes # (Auto) 1.59 0.11-0.59 K/uL Eosinophils # (Auto) 0.00 0-0.5 K/uL Basophils # (Auto) 0.02 0-0.2 K/uL RDW Standard Deviation 44.8 36.4-46.3 fL RDW Coefficient of Variation 13.4 11.5-14.5 % Immature Granulocyte % (Auto) 0.2 % Immature Granulocyte # (Auto) 0.02 0.00-0.02 K/uL Sodium Level 133 136-145 mmol/L Potassium Level 3.7 3.5-5.1 mmol/L Chloride Level 101 98-107 mmol/L Carbon Dioxide Level 25 21-32 mmol/L Anion Gap 7.0 3-11 mmol/L Blood Urea Nitrogen 31 7-18 mg/dl Creatinine 1.38 0.60-1.20 mg/dl Est Creatinine Clear Calc Drug Dose 40.4 ml/min Estimated GFR () 42.9 Estimated GFR (Non- 37.0 BUN/Creatinine Ratio 22.2 05-02 Random Glucose 179 70-99 mg/dl Calcium Level 9.3 8.5-10.1 mg/dl Total Bilirubin 0.6 0.2-1 mg/dl Direct Bilirubin 0.2 0-0.2 mg/dl Aspartate Amino Transf (AST/SGOT) 20 15-37 U/L Alanine Aminotransferase (ALT/SGPT) 29 12-78 U/L Alkaline Phosphatase 65 45-117 U/L Troponin I < 0.015 0-0.045 ng/ml Pro-B-Type Natriuretic Peptide 1328 0-1800 pg/ml Total Protein 7.6 6.4-8.2 gm/dl Albumin 3.4 3.4-5.0 gm/dl Lipase 54 73-393 U/L Lactic Acid Level 2.3 1.2 0.4-2.0 mmol/L Procalcitonin 1.17 0-0.5 ng/ml Test 05/02/17 06:29 05/02/17 06:47 05/02/17 11:25 Range/Units White Blood Count 10.05 4.8-10.8 K/uL Red Blood Count 4.00 4.2-5.4 M/uL Hemoglobin 12.7 12.0-16.0 g/dL Hematocrit 36.9 37-47 % Mean Corpuscular Volume 92.3 80-100 fL Mean Corpuscular Hemoglobin 31.8 25-34 pg Mean Corpuscular Hemoglobin Concent 34.4 32-36 g/dl Platelet Count 183 130-400 K/uL Mean Platelet Volume 9.8 7.4-10.4 fL Neutrophils (%) (Auto) 69.6 % Lymphocytes (%) (Auto) 13.3 % Monocytes (%) (Auto) 16.7 % Eosinophils (%) (Auto) 0.0 % Basophils (%) (Auto) 0.2 % Neutrophils # (Auto) 6.99 1.4-6.5 K/uL Lymphocytes # (Auto) 1.34 1.2-3.4 K/uL Monocytes # (Auto) 1.68 0.11-0.59 K/uL Eosinophils # (Auto) 0.00 0-0.5 K/uL Basophils # (Auto) 0.02 0-0.2 K/uL RDW Standard Deviation 45.6 36.4-46.3 fL RDW Coefficient of Variation 13.5 11.5-14.5 % Immature Granulocyte % (Auto) 0.2 % Immature Granulocyte # (Auto) 0.02 0.00-0.02 K/uL Prothrombin Time 11.7 9.0-12.0 SECONDS Prothromb Time International Ratio 1.1 0.9-1.1 Activated Partial Thromboplast Time 29.3 21.0-31.0 SECONDS Partial Thromboplastin Ratio 1.1 Sodium Level 137 136-145 mmol/L Potassium Level 4.1 3.5-5.1 mmol/L Chloride Level 106 98-107 mmol/L Carbon Dioxide Level 23 21-32 mmol/L Anion Gap 8.0 3-11 mmol/L Blood Urea Nitrogen 27 7-18 mg/dl Creatinine 1.35 0.60-1.20 mg/dl Est Creatinine Clear Calc Drug Dose 42.2 ml/min Estimated GFR () 44.1 Estimated GFR (Non- 38.0 BUN/Creatinine Ratio 19.6 10-20 Random Glucose 154 70-99 mg/dl Calcium Level 9.0 8.5-10.1 mg/dl Total Bilirubin 0.6 0.2-1 mg/dl Aspartate Amino Transf (AST/SGOT) 27 15-37 U/L Alanine Aminotransferase (ALT/SGPT) 31 12-78 U/L Alkaline Phosphatase 63 45-117 U/L Total Protein 7.5 6.4-8.2 gm/dl Albumin 3.2 3.4-5.0 gm/dl Globulin 4.3 2.5-4.0 gm/dl Albumin/Globulin Ratio 0.8 0.9-2 Bedside Glucose 138 129 70-90 mg/dl Microbiology Results 05/01/17 Blood Culture, Received Pending 05/01/17 Blood Culture, Received Pending 05/01/17 Urine Culture - Preliminary, Resulted Gram Negative Bacilli Assessment and Plan This is a 76 yo F with pMHx DMII, HTN, CKD, HLD that was admitted with sepsis secondary to a urinary source, after failure of outpatient treatment with trimethoprim. Patient placed on broad spectrum abx UTI with sepsis - Lactic acid WNL, procal elevated. Renal US showed kidneys are normal in size and without hydronephrosis, bladder with intraluminal debris, and hepatomegaly and severe hepatic steatosis. - Continue Zosyn. Vancomycin discontinued due to urine gram stain showing gram negative bacilli - Zofran for nausea - Pyridium for dysuria - Trace urine and blood culture - NSS @ 125 cc/h - decrease rate to 75 Obesity - Patient admits to being told she snores. - Nocturnal pulse oximetry test ordered. Follow up on results tomorrow Known systolic murmur - unable to trace any recent echo. will check in pcp chart BEHZAD on CKD III - NSS @ 125 cc/h - Trend BMP in the am Hyponatremia - NSS @ 125 cc/h as noted above T2DM - ISS with BSG AC/ HS - Metformin and Glipizide held HTN - Amlodipine 10mg daily - HCTZ 25mg held Hyperlipidemia - Continue simvastatin 20mg daily Anxiety - Citalopram 40 mg daily - Zanax 2.5 mg PRN Breast cancer; remission - Continue Femara and Tamoxifen GERD - Protonix 40 mg daily Hypothyroidism - TSH 2.04 on 11/29/16 - Continue Synthroid 150 mcg daily with 25 mcg q2days DVT Prophylaxis - Heparin BID - SCD Continued [facility] stay due to: multiple IV medications needed Discharge planning: home Resident Tracking Resident Involvement: Resident Care Provided Care Provided: Adult Hospital Medicine Reviewed: Pt Seen/Exam by Me Constitutional: denies: fever Respiratory: negative: short of breath Cardiovascular: denies chest pain Gastrointestinal/Abdominal: negative: abdominal pain General Appearance: no apparent distress Respiratory: lungs clear, no respiratory distress Cardiovascular: regular rate, rhythm Gastrointestinal: normal bowel sounds, non tender, soft Neurologic/Psychiatric: alert, oriented x 3 Skin Characteristics: warm/dry Assessment/Plan Resident Physician Supervision Note: I independently interviewed and examined the patient and verified the barrow history and physical, reviewed labs and image studies, discussed the case with the resident Dr. Berger and agree with the findings and care plan.
[2017-05-02] MEDS ORDERED: SIMVASTATIN 20 MG TAB PO SCH (21:00)
[2017-05-02] MEDS ORDERED: CITALOPRAM 40 MG TAB PO SCH (21:00)
[2017-05-02] MEDS ORDERED: ALPRAZOLAM 0.25 MG TAB PO ONE (22:00)
[2017-05-03] MEDS: PIPERACILL/TAZOBAC IV 3.375 GM in DEXTROSE 5% 100ML 100 ML IV SCH (03:49)
[2017-05-03] MEDS: SODIUM CHLORIDE 0.9% 1000ML 1,000 ML IV SCH (06:10)
[2017-05-03] MEDS: LEVOTHYROXINE 150 MCG TAB PO SCH (06:10)
[2017-05-03] MEDS: AMLODIPINE BESYLATE 5 MG TAB PO SCH (07:57)
[2017-05-03] MEDS: TOCOPHERYL, DL-ALPHA 400 INTER.UNIT CAP PO SCH (07:57)
[2017-05-03] MEDS: MAGNESIUM OXIDE 400 MG TAB PO SCH (07:59)
[2017-05-03] MEDS: TAMOXIFEN CITRATE 10 MG TAB PO SCH (07:59)
[2017-05-03] MEDS: LETROZOLE 2.5 MG TAB PO SCH (07:59)
[2017-05-03] MEDS: ASPIRIN 81 MG ECTAB PO SCH (08:00)
[2017-05-03] MEDS: OMEGA-3 (PURIFIED FISH OIL) 1 GM CAP PO SCH (08:00)
[2017-05-03] MEDS: CHOLECALCIFEROL 1000 INTER.UNIT TAB PO SCH (08:00)
[2017-05-03] MEDS: PANTOprazole SOD 40 MG TAB PO SCH (08:01)
[2017-05-03] MEDS: LOSARTAN POTASSIUM 50 MG TAB PO SCH (08:01)
[2017-05-03] MEDS: CYANOCOBALAMIN 500 MCG TAB (VIT B-12) PO SCH (08:01)
[2017-05-03] MEDS: FERROUS SULFATE 325 MG TAB PO SCH (08:01)
[2017-05-03 08:06] LABS: BASO % 0.1 %; BASO ABS # 0.01 K/uL (0-0.2); COMPLETE YES; EOS % 0.2 %; HEMATOCRIT 33.1 % (37-47); IG% 0.4 %; LYMPH % 13.5 %; LYMPH ABS # 1.13 K/uL (1.2-3.4); MEAN CELL VOLUME 91.2 fL (80-100); MEAN CORPUSCULAR HEMOGLOBIN 30.3 pg (25-34); MEAN CORPUSCULAR HGB CONC 33.2 g/dl (32-36); MEAN PLATELET VOLUME 10.6 fL (7.4-10.4); MONO % 17.1 %; NEUT % 68.7 %; PLATELET COUNT 150 K/uL (130-400); RED BLOOD COUNT 3.63 M/uL (4.2-5.4); WHITE BLOOD COUNT 8.35 K/uL (4.8-10.8)
[2017-05-03] MEDS: HEPARIN SOD 5000 UNIT/0.5 ML CARP SQ SCH (08:07)
[2017-05-03 08:10] VITALS: BP 135/70; PULSE 75; TEMP 36.6; O2SAT 93
[2017-05-03 08:30] LABS: BUN/CREATININE RATIO 16.2 (10-20); CALCIUM 8.3 mg/dl (8.5-10.1); CREATININE 1.13 mg/dl (0.60-1.20); POTASSIUM 3.5 mmol/L (3.5-5.1)
[2017-05-03] MEDS ORDERED: CPR250 PO ×2 (09:29→10:14)
[2017-05-03] MEDS ORDERED: CIPROFLOXACIN 250 MG TAB PO SCH (09:30)
--- NOTE | 2017-05-03 09:35 | Discharge Instructions ---
Discharge Instructions Date of Service May 03, 2017. Admission Reason for Admission: Sepsis, Uti Discharge Discharge Diagnosis / Problem: UTI Discharge Goals Goal(s): Decrease discomfort, Improve function, Increase independence, Improve disease control, Improve nutritional status, Learn about illness Activity Recommendations Activity Limitations: per Instructions/Follow-up section . Instructions / Follow-Up Instructions / Follow-Up Follow up with your Primary Care Provider within one week. You have been diagnosed with a UTI. The bacteria that grew from your urine was called Klebsiella. This bacteria was resistant to Trimethoprim and Nitrofurantoin. The bacteria was sensitive to Ciprofloxacin and Amikacin. You are being discharged on a 5 day course of Ciprofloxacin. Take Ciprofloxacin every 12 hours until all tablets are finished. You will be given one dose of Ciprofloxacin today at 10am, take your second dose tonight around 10pm. Information on UTIs and Ciprofloxacin will be attached to your discharge package. You may resume all of your other medications. If you experience new burning while peeing or severe fevers please see your PCP immediately or come to the ER. Current Hospital Diet Patient's current hospital diet: Diabetes Type 2 Diet Discharge Diet Recommended Diet: Diabetes Type 2 Diet Pending Studies Studies pending at discharge: no Medical Emergencies . Who to Call and When: Medical Emergencies: If at any time you feel your situation is an emergency, please call 911 immediately. . Non-Emergent Contact Non-Emergency issues call your: Primary Care Provider . . "Provider Documentation" section prepared by Don Camarena. . VTE Core Measure Inpt VTE Proph given/why not?: Unfractionated heparin SQ, SCD's Resident Involvement: Resident Care Provided Care Provided: Adult Hospital Medicine
--- NOTE | 2017-05-03 09:45 | Discharge Summary ---
Discharge Summary Date of Service May 03, 2017. (Don Camarena M.D.) Discharge Summary Admission Date: May 01, 2017 at 23:54 Discharge Date: May 03, 2017 Discharge Disposition: Home Principal Diagnosis: UTI Immunizations: Have You Had Influenza Vaccine: Yes Influenza Vaccine Date: Apr 09, 2011 History of Tetanus Vaccine?: Yes Tetanus Immunization Date: Apr 13, 2012 History of Pneumococcal: Yes History of Hepatitis B Vaccine: No Procedures: ULTRASOUND KIDNEYS AND BLADDER CLINICAL HISTORY: Urinary tract infection. Sepsis. COMPARISON STUDY: Renal ultrasound dated 11/21/2015. Abdominal CT dated 07/06/2012. TECHNIQUE: Real-time, grayscale, and color flow sonography of the kidneys and bladder is performed. Images are reviewed in the transverse and longitudinal planes. FINDINGS: Kidneys: The kidneys are normal in size and echotexture. The right kidney measures 10.9 x 4.0 x 5.0 cm and the left kidney measures 11.6 x 5.9 x 6.1 cm. There is no hydronephrosis. No shadowing renal calculi are identified. There is no sonographic evidence of contour deforming renal mass lesion. Parapelvic cysts are suggested on the left. No perinephric fluid is identified. Bladder: The bladder is decompressed. Intraluminal debris is noted. Ureteral jets were not seen. Upper abdomen: Survey images of the liver show hepatomegaly and severe hepatic steatosis. IMPRESSION: 1. The kidneys are normal in size and without hydronephrosis. 2. The bladder is largely decompressed and contains intraluminal debris. Correlation with clinical findings and urinalysis will be required. 3. Hepatomegaly and severe hepatic steatosis. (Don Camarena M.D.) Medication Reconciliation New Medications: Ciprofloxacin (Ciprofloxacin HCl) 250 Mg Tab 1 TAB PO Q12 for 5 Days, #10 TAB Continued Medications: Alprazolam (Xanax) 0.25 Mg Tab 0.25 MG PO DAILY PRN for Anxiety Amlodipine Besylate (Norvasc) 10 Mg Tab 10 MG PO QAM, TAB Aspirin (Aspirin Ec) 81 Mg Tab 81 MG PO QAM Cholecalciferol (Vitamin D) 5,000 Unit Tab 5000 UNITS PO DAILY Citalopram Hydrobromide (Celexa) 40 Mg Tab 40 MG PO HS Cranberry (Vaccinium Macrocarp (Cranberry Extract) 250 Mg Tab 250 MG BID Cyanocobalamin (Vitamin B12) 1,000 Mcg Tab 1 TAB PO QAM Ferrous Sulfate (Ferrous Sulfate) 325 Mg Tab 325 MG PO DAILY Glipizide (Glipizide Er) 5 Mg Tab 0.5 TAB PO BID Hydrochlorothiazide (Hctz) 25 Mg Tab 25 MG PO QAM, TAB Letrozole (Femara) 2.5 Mg Tab 2.5 MG PO DAILY, TAB Levothyroxine Sodium (Synthroid) 150 Mcg Tab 1 TAB PO QAM Levothyroxine Sodium (Synthroid) 25 Mcg Tab 25 MCG PO Q2D, TAB Losartan Potassium (Cozaar) 100 Mg Tab 100 MG PO DAILY, TAB Magnesium Oxide (Mag-Ox) 400 Mg Tab 400 MG PO DAILY, TAB Metformin Hcl (Glucophage) 500 Mg Tab 500 MG PO BREAKFAST Metformin Hcl (Glucophage) 500 Mg Tab 2 TABLETS PO LUNCH AND HS, TAB [place]-3 Fatty Acids (Fish Oil) 1 Cap Cap 1000 MG PO DAILY Omeprazole (Prilosec) 20 Mg Capcr 20 MG PO BID Simvastatin (Zocor) 20 Mg Tab 20 MG PO QPM, TAB Simvastatin (Zocor) 20 Mg Tab 20 MG PO QPM, TAB Tamoxifen (Nolvadex) 20 Mg Tab 20 MG PO QAM, TAB Vitamin E (E-400) 400 Unit Cap 2 TAB PO BID Discontinued Medications: Trimethoprim (Proloprim) 100 Mg Tab 100 MG PO HS Discharge Exam The patient was seen and examined at bedside. No acute overnight events. States she feels better than the previoius day. IVF NSS were running at bedside. Pt denies any urinary symptoms. See ROS below. Plan of care was described to the patient and all questions were answered. Review of Systems: Constitutional: No fever, No chills Respiratory: No cough, No sputum, No wheezing, No shortness of breath Cardiovascular: No chest pain Abdomen: No pain, No nausea, No vomiting, No diarrhea, No constipation Musculoskeletal: No joint pain Genitourinary - Female: No dysuria, No urinary frequency, No urinary urgency , No urinary incontinence, No urinary retention, No hematuria, No rash, No vaginal itching Neurologic: No memory loss Psychiatric: No depression symptoms Integumentary: No rash Physical Exam General Appearance: WD/WN, no apparent distress, + pertinent finding Eyes: normal inspection ENT: hearing grossly normal, pharynx normal Neck: supple, no adenopathy Respiratory/Chest: lungs clear, normal breath sounds, no respiratory distress, no accessory muscle use, + pertinent finding (breathing appears effortful) Cardiovascular: regular rate, rhythm, no edema, + systolic murmur, + normal peripheral pulses Abdomen: normal bowel sounds, non tender, soft, + pertinent finding (no CVA tenderness) Extremities: no pedal edema, no calf tenderness Neurologic/Psychiatric: alert, normal mood/affect, oriented x 3 Skin: normal color, warm/dry, no rash (Don Camarena M.D.) no concerns. feeling ready to go home Review of Systems: Constitutional: No fever Respiratory: No shortness of breath Cardiovascular: No chest pain Abdomen: No pain, No nausea Physical Exam: General Appearance: no apparent distress Respiratory/Chest: lungs clear, no respiratory distress Cardiovascular: regular rate, rhythm Abdomen / GI: normal bowel sounds, non tender, soft Neurologic/Psychiatric: alert, oriented x 3 Skin: warm/dry (Tahmina Georges M.D.) Hospital Course 76F with a pMHx DMII, HTN, CKD, HLD that was admitted with sepsis secondary to a urinary source, after failure of outpatient treatment with trimethoprim. Patient placed on Vanco and Zosyn (narrowed to Zosyn) until urine culture results returned. Klebsiella was grown from the urine culture that was resistant to Bactrim and Macrobid. Pt was discharged on a 5 day course of Ciprofloxacin 250mg BID x 5 days. She was asymptomatic on discharge (no dysuria , no hematuria, has a good energy level). Return instructions were reviewed with the patient and she was told to follow up with her PCP (Dr. Barnes) in one week. Pt had a portal pulse ox study due to snoring done in the hospital. The results are : SPO2 reading 91% and HR 88bpm. Portable pulse ox SPO2 reading 93% and 88bpm. Total Time Spent: Greater than 30 minutes (31 minutes) This includes examination of the patient, discharge planning, medication reconciliation, and communication with other providers. (Don Camarena M.D.) Resident Physician Supervision Note: I independently interviewed and examined the patient and verified the barrow history and physical, reviewed labs and image studies, discussed the case with the resident Dr. Camarena and agree with the findings and care plan. Total Time Spent: Greater than 30 minutes (35) (Tahmina Georges M.D.) Discharge Instructions Please refer to the electronic Patient Visit Report (Discharge Instructions) for additional information. (Don Camarena M.D.) Follow-Up Follow up with Dr. Mela Barnes within one week. (Don Camarena M.D.) Additional Copies To RV. Urbina MD Resident Involvement: Resident Care Provided Care Provided: [facility] (Don Camarena M.D.)
[2017-05-03 10:06] VITALS: BP 135/70; PULSE 75; TEMP 36.6; O2SAT 93
== END 2017-05-03 11:47 | disposition home or self-care (01) | DRG 872 ==
LOC: C.EDB 20:04 → C.2T 23:54 → ENRESERV 05-02 00:06 → C.MS4W 05-02 17:17
PROVIDERS: ADMIT Hospitalist; ATTEND Family Medicine
DX: A41.9 Sepsis, unspecified organism (principal); N39.0 Urinary tract infection, site not specified; N17.9 Acute kidney failure, unspecified; E87.1 Hypo-osmolality and hyponatremia; Z79.82 Long term (current) use of aspirin; E11.9 Type 2 diabetes mellitus without complications; F41.9 Anxiety disorder, unspecified; E78.5 Hyperlipidemia, unspecified; E03.9 Hypothyroidism, unspecified; N18.3 Chronic kidney disease, stage 3 (moderate); K21.9 Gastro-esophageal reflux disease without esophagitis; I12.9 Hypertensive chronic kidney disease with stage 1 through stage 4 chronic kidney disease, or unspecified chronic kidney disease; R16.0 Hepatomegaly, not elsewhere classified; K76.0 Fatty (change of) liver, not elsewhere classified; E66.9 Obesity, unspecified; Z85.3 Personal history of malignant neoplasm of breast; Z90.12 Acquired absence of left breast and nipple

== ENCOUNTER → 2017-05-08 | Outpatient (CLI) | payer OTHER ==
[~2017-05-08] MED LIST changes: -CHOL100010 PO; +CHOL1TAB42 PO; +CIPR250T5 PO; +CRAN250T; -Cranberry PO; +FERR1TAB62 PO; -FERR325T51 PO; -FISHOIL PO; +FMR25 PO; +LOSA1TAB38 PO; -LOSA50TA6 PO; +MAGN400T6 PO; -Magnesium; +OMEGCAP2 PO; +SIMV20TA2 PO; -TAMO20TA47 PO; +TAMO20TA9 PO; -TRIM100T20 PO; -ZCRT/40 PO
== END | disposition home or self-care (01) ==
LOC: C.LABSPEC 12:45
PROVIDERS: ATTEND Physician Assistant
DX: R39.9 Unspecified symptoms and signs involving the genitourinary system (principal)

== ENCOUNTER → 2017-05-22 | Outpatient (CLI) | payer OTHER | END | disposition home or self-care (01) | LOC: C.LABSPEC 17:16 | PROVIDERS: ATTEND Urology | DX: N39.0 Urinary tract infection, site not specified (principal); R39.15 Urgency of urination; R39.9 Unspecified symptoms and signs involving the genitourinary system ==

== ENCOUNTER → 2017-05-27 | Outpatient (CLI) | payer OTHER ==
[2017-05-27 09:37] LABS: ESTIMATED AVERAGE GLUCOSE 131 mg/dl; HA1C FLAG Normal (Normal)
[2017-05-27 09:50] LABS: ALT/SGPT 28 U/L (12-78); AST/SGOT 18 U/L (15-37); BLOOD UREA NITROGEN 23 mg/dl (7-18); BUN/CREATININE RATIO 23.2 (10-20); CALCIUM 9.1 mg/dl (8.5-10.1); CARBON DIOXIDE 27 mmol/L (21-32); CHLORIDE 105 mmol/L (98-107); CREATININE 0.99 mg/dl (0.60-1.20); GLUCOSE 108 mg/dl (70-99); POTASSIUM 4.3 mmol/L (3.5-5.1); SODIUM 140 mmol/L (136-145)
[2017-05-27 09:53] LABS: ALKALINE PHOSPHATASE 63 U/L (45-117); CHOLESTEROL 120 mg/dl (0-200); CHOLESTEROL/HDL RATIO 3.1; HDL CHOLESTEROL 39 mg/dl; LDL CHOLESTEROL CALCULATED 56 mg/dl; TRIGLYCERIDES 125 mg/dl (0-150); VERY LOW DENSITY LIPOPROT CALC 25 mg/dl
== END | disposition home or self-care (01) ==
LOC: C.LAB1850 07:32
PROVIDERS: ATTEND Internal Medicine
DX: E11.9 Type 2 diabetes mellitus without complications (principal); E55.9 Vitamin D deficiency, unspecified

== ENCOUNTER → 2017-08-08 | Outpatient (CLI) | payer OTHER ==
[2017-08-08 09:51] LABS: BASO % 0.7 %; BASO ABS # 0.05 K/uL (0-0.2); EOS ABS # 0.36 K/uL (0-0.5); HEMATOCRIT 36.5 % (37-47); IG# 0.02 K/uL (0.00-0.02); LYMPH % 28.1 %; LYMPH ABS # 2.02 K/uL (1.2-3.4); MEAN CELL VOLUME 93.4 fL (80-100); MEAN CORPUSCULAR HEMOGLOBIN 30.7 pg (25-34); MEAN CORPUSCULAR HGB CONC 32.9 g/dl (32-36); MEAN PLATELET VOLUME 10.3 fL (7.4-10.4); MONO % 5.7 %; MONO ABS # 0.41 K/uL (0.11-0.59); NEUT % 60.2 %; NEUT ABS # 4.33 K/uL (1.4-6.5); PLATELET COUNT 236 K/uL (130-400); RED CELL DISTRIBUTION WIDTH SD 47.4 fL (36.4-46.3); WHITE BLOOD COUNT 7.19 K/uL (4.8-10.8)
[2017-08-08 10:08] LABS: ALBUMIN 3.7 gm/dl (3.4-5.0); ALT/SGPT 29 U/L (12-78); BLOOD UREA NITROGEN 25 mg/dl (7-18); CALCIUM 9.4 mg/dl (8.5-10.1); CARBON DIOXIDE 25 mmol/L (21-32); CREATININE 1.05 mg/dl (0.60-1.20); GLUCOSE 155 mg/dl (70-99); POTASSIUM 4.4 mmol/L (3.5-5.1); SODIUM 138 mmol/L (136-145)
[2017-08-08 10:11] LABS: ALKALINE PHOSPHATASE 59 U/L (45-117); AST/SGOT 17 U/L (15-37); TOTAL PROTEIN 7.2 gm/dl (6.4-8.2)
== END | disposition home or self-care (01) ==
LOC: C.LAB1850 07:39
PROVIDERS: ATTEND Internal Medicine Hematology & Oncology
DX: Z85.3 Personal history of malignant neoplasm of breast (principal); Z08 Encounter for follow-up examination after completed treatment for malignant neoplasm

== ENCOUNTER → 2017-10-22 | Outpatient (CLI) | payer OTHER ==
[~2017-10-22] MED LIST changes: +CIPR250T23 PO; -CIPR250T5 PO
== END | disposition home or self-care (01) ==
LOC: C.LABSPEC 16:49
PROVIDERS: ATTEND Physician Assistant
DX: R39.15 Urgency of urination (principal)

== ENCOUNTER → 2017-11-27 | Outpatient (CLI) | payer OTHER ==
[~2017-11-27] MED LIST changes: -CIPR250T23 PO; +CIPR250T26 PO
[2017-11-27 10:24] LABS: BASO % 0.7 %; BASO ABS # 0.05 K/uL (0-0.2); EOS % 4.3 %; HEMATOCRIT 39.5 % (37-47); HEMOGLOBIN 13.2 g/dL (12.0-16.0); IG# 0.02 K/uL (0.00-0.02); LYMPH ABS # 1.87 K/uL (1.2-3.4); MEAN CELL VOLUME 90.8 fL (80-100); MEAN CORPUSCULAR HEMOGLOBIN 30.3 pg (25-34); MEAN CORPUSCULAR HGB CONC 33.4 g/dl (32-36); MEAN PLATELET VOLUME 9.7 fL (7.4-10.4); MONO % 6.5 %; MONO ABS # 0.45 K/uL (0.11-0.59); NEUT % 61.2 %; NEUT ABS # 4.23 K/uL (1.4-6.5); PLATELET COUNT 235 K/uL (130-400); RED CELL DISTRIBUTION WIDTH CV 13.8 % (11.5-14.5); RED CELL DISTRIBUTION WIDTH SD 45.8 fL (36.4-46.3); WHITE BLOOD COUNT 6.92 K/uL (4.8-10.8)
[2017-11-27 10:43] LABS: ALBUMIN 3.8 gm/dl (3.4-5.0); ALKALINE PHOSPHATASE 76 U/L (45-117); ALT/SGPT 33 U/L (12-78); AST/SGOT 22 U/L (15-37); BLOOD UREA NITROGEN 24 mg/dl (7-18); CALCIUM 9.2 mg/dl (8.5-10.1); CARBON DIOXIDE 26 mmol/L (21-32); CHOLESTEROL 158 mg/dl (0-200); CREATININE 1.19 mg/dl (0.60-1.20); GLUCOSE 133 mg/dl (70-99); LDL CHOLESTEROL CALCULATED 89 mg/dl; POTASSIUM 4.9 mmol/L (3.5-5.1); SODIUM 139 mmol/L (136-145); TOTAL PROTEIN 7.6 gm/dl (6.4-8.2)
[2017-11-27 11:08] LABS: HEMOGLOBIN A1C 6.5 % (4.5-5.6)
== END | disposition home or self-care (01) ==
LOC: C.LAB1850 09:03
PROVIDERS: ATTEND Internal Medicine
DX: E11.9 Type 2 diabetes mellitus without complications (principal); E55.9 Vitamin D deficiency, unspecified; Z86.2 Personal history of diseases of the blood and blood-forming organs and certain disorders involving the immune mechanism

== ENCOUNTER 2021-01-22 10:27 | Observation (INO) ==
[2021-01-22 11:11] LABS: Basophils # (auto) 0.03 K/uL (0-0.2); Basophils % (auto) 0.3 %; Eosinophils # (auto) 0.04 K/uL (0-0.5); Eosinophils % (auto) 0.4 %; Hematocrit (blood only) 40.1 % (37-47); Hemoglobin 13.5 g/dL (12.0-16.0); Immature Granulocytes # (auto) 0.02 K/uL (0.00-0.02); Immature Granulocytes % (auto) 0.2 %; Lymphocytes # (auto) 2.39 K/uL (1.2-3.4); Lymphocytes % (auto) 26.2 %; Mean Corpuscular Hemoglobin 31.2 pg (25-34); Mean Corpuscular Hgb Conc 33.7 g/dL (32-36); Mean Corpuscular Volume 92.6 fL (80-100); Mean Platelet Volume 10.4 fL (7.4-10.4); Monocytes # (auto) 0.65 K/uL (0.11-0.59); Monocytes % (auto) 7.1 %; Neutrophils # (auto) 5.99 K/uL (1.4-6.5); Neutrophils % (auto) 65.8 %; Platelet Count 243 K/uL (130-400); RDW Coefficient of Variation 13.3 % (11.5-14.5); Red Blood Count 4.33 M/uL (4.2-5.4); White Blood Count 9.12 K/uL (4.8-10.8)
[2021-01-22 11:19] LABS: Albumin Level 4.2 gm/dl (3.4-5.0); BUN Creatinine Ratio 20.9 (10-20); Calcium 9.7 mg/dl (8.5-10.1); Est GFR (African American) 53.2 ml/min; Est GFR (Non-African American) 45.9 ml/min
[2021-01-22 11:22] LABS: Albumin Globulin Ratio 1.2 (0.9-2); Bilirubin,Total 0.7 mg/dl (0.2-1); Globulin 3.4 gm/dl (2.5-4.0); Total Protein 7.6 gm/dl (6.4-8.2)
[2021-01-22] MEDS ORDERED: MECLIZINE HCL 25 MG TAB PO STA (12:26)
[2021-01-22] MEDS ORDERED: SODIUM CHLORIDE 0.9% 1000ML 1,000 ML IV SCH (12:30)
[2021-01-22] MEDS ORDERED: OPTIRAY 320 125ml IV ONE (13:39)
--- NOTE | 2021-01-22 14:11 | CT Scan Report ---
HEAD CTA HISTORY: dizziness TECHNIQUE: Multiaxial CT images of the head were performed both before and after the intravenous admi nistration of contrast to evaluate the major cerebral vessels. Maximum intensity projection images we re also obtained. A dose lowering technique was utilized adhering to the principles of ALARA. COMPARISON: None. FINDINGS: There is no mass, hematoma, midline shift, or acute infarct. Mild atrophy and microvascular ischemic changes are noted. There is no significant stenosis, occlusion, or aneurysm seen within the bilateral ACAs, MCAs, or company doctor. The major dural venous sinuses appear patent. Mild multifocal narrowi ng within the hypoplastic distal right vertebral artery. There is also mild focal narrowing within th e distal left vertebral artery due to the calcified plaque. Moderate calcified plaque within the bila teral intracranial internal carotid arteries without significant stenosis. Severely hypoplastic left A1 segment. Otherwise, the remaining bilateral ACAs are widely patent. IMPRESSION: 1. No acute intracranial abnormality. 2. No significant stenosis, occlusion, or aneurysm within the upper [place]. 3. Mild narrowing within the distal bilateral vertebral arteries due to the calcified plaque. ACT 112: Negative or not required by law. Electronically signed by: Nathaniel Morrell M.D. 01/22/2021 2:10 PM
--- NOTE | 2021-01-22 14:21 | CT Scan Report ---
CT ANGIOGRAPHY OF THE NECK WITH CONTRAST CLINICAL HISTORY: Dizziness. COMPARISON STUDY: PET/CT February 27, 2015. Technique: CT angiography of the carotid and vertebral arteries was obtained using [employer] and 3D rec onstruction on an independent workstation. NASCET criteria was utilized. Automated exposure control was utilized for the study. A dose lowering technique was utilized adhering to the principles of ALA RA. Findings: No acute cervical spine fracture is noted. No suspicious osseous lesion within the cervical spine. There is mild calcified atherosclerotic plaque within the proximal bilateral internal carotid arteries without significant stenosis. There is no dissection within the major vessels of the neck. The left vertebral artery is dominant. There is mild stenosis of the intracranial portion of the left vertebral artery due to calcified atherosclerotic plaque. There are moderate multifocal stenoses of the intracranial portion of the right vertebral artery. There is mild stenosis at the origin of the r ight vertebral artery. IMPRESSION: 1. No significant stenosis within the bilateral common carotid or cervical internal carotid arteries. 2. 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 Mild s tenosis at the origin of the right vertebral artery. ACT 112: Negative or not required by law. Electronically signed by: Josué Norton M.D. 01/22/2021 2:19 PM
[2021-01-22 14:41] LABS: Appearance Urine Cloudy (Clear); Bacteria Urine Automated 2+ (Negative); Bilirubin Urine Negative (Negative); Blood Urine Negative (Negative); Color Urine Yellow; Epithelial Cell Urine Auto 0-5 /lpf (0-5); Glucose Urine UA Negative (Negative); Ketones Urine Negative (Negative); Leukocyte Esterase Urine 1+ (Negative); Nitrite Urine Negative (Negative); Protein Urine Trace (Negative); Specific Gravity Urine 1.016 (1.000-1.030); Urobilinogen Urine Negative (Negative); WBC Urine Automated >30 /hpf (0-5)
[2021-01-22] MEDS ORDERED: cefTRIAXone SODIUM 1,000 MG/50 ML BAG IV STA (15:43)
--- NOTE | 2021-01-22 15:51 | Emergency Department Note ---
History of Present Illness General Chief complaint: Dizziness Time Seen by Provider: 01/22/21 12:19 Source: patient Mode of arrival: EMS Limitations: no limitations History of Present Illness Provider complaint: Vertigo Maximum Pain Intensity: 5 80-year-old female presents with a chief complaint of vertigo. The patient states that her symptoms started this morning. She states that her symptoms are worse with movement. She has associated nausea but no vomiting or diarrhea. She initially states that her symptoms improved while she was here after getting Zofran by EMS. The patient had a recurrence of her symptoms while here. She has no other complaints at this time. Home Medications Medication Instructions Recorded Confirmed Type letrozole 2.5 mg tablet 2.5 mg PO DAILY #30 tab 06/17/19 01/22/21 Rx blood sugar diagnostic #100 ea 06/18/19 01/22/21 Rx levothyroxine 150 mcg tablet 150 mcg PO DAILY #90 tab 02/16/20 01/22/21 Rx simvastatin 20 mg tablet 20 mg PO HS #90 tab 02/23/20 01/22/21 Rx omeprazole 20 mg capsule,delayed 20 mg PO DAILY #90 cap 04/24/20 01/22/21 Rx release celecoxib 100 mg capsule 100 mg PO DAILY #30 cap 06/07/20 01/22/21 Rx glipizide 5 mg tablet See Rx Instructions .ROUTE 06/20/20 01/22/21 Rx .COMPLEX #90 tab losartan 100 mg tablet 100 mg PO DAILY #90 tab 06/22/20 01/22/21 Rx methenamine hippurate 1 gram tablet 1 g PO DAILY #90 tab 10/09/20 01/22/21 Rx amlodipine 10 mg tablet 10 mg PO DAILY #30 tab 11/21/20 01/22/21 Rx metformin 500 mg tablet 500 mg PO QAM tab 12/19/20 01/22/21 History citalopram 40 mg tablet 40 mg PO DAILY #90 tab 12/26/20 01/22/21 Rx alprazolam 0.25 mg tablet 0.25 mg PO DAILY PRN #30 tab 01/16/21 01/22/21 Rx levothyroxine 25 mcg PO 2XWK 01/22/21 01/22/21 History metformin 1,000 mg PO UD 01/22/21 01/22/21 History Allergies Allergy/AdvReac Type Severity Reaction Status Date / Time Sulfa (Sulfonamide Allergy Unknown HIVES Verified 01/22/21 11:29 Antibiotics) sulfamethoxazole AdvReac Verified 01/22/21 11:29 [From Bactrim] trimethoprim [From Bactrim] AdvReac Verified 01/22/21 11:29 Past Med/Surg History Medical History Depression with anxiety Fracture of right distal radius Hyperlipidemia Type 2 diabetes mellitus Surgical History H/O oral surgery History of back surgery S/P arthroscopy of right knee S/P breast lumpectomy S/P cataract surgery S/P hysterectomy S/P tonsillectomy Family History Father Stomach cancer Heart disease Hypertension Myocardial infarction Colon cancer Mother Heart disease Hypertension Diabetes Sister Hypertension Denies family history of Ovarian cancer Prostate cancer Breast cancer Social History Smoking Status: Never smoker Second Hand Exposure: No; Hx Alcohol Use: No Hx Substance Use: No Preferred Language: Spanish Communication Ability: Effective Visual Impairment: No Limitations Hearing Ability: Normal marital status: Current Living Situation: Spouse current occupational status: retired Feels Safe at Home: Yes Childhood Exposure to Second-Hand Smoke: No Dental Care, Regularly: Yes Physical Activity Frequency: Does not Exercise Seatbelt Use: always Sunscreen Use: Yes Review of Systems A total of 10 systems reviewed and were otherwise negative Physical Exam Vital Signs Vital Signs - 24 hr 01/22/21 10:33 01/22/21 10:49 01/22/21 11:04 Temperature 36.7 C Temperature Source Oral Pulse Rate 65 76 Pulse Rate from SpO2 Sensor 64 Respiratory Rate 20 18 Blood Pressure 198/71 H 198/71 H Blood Pressure Mean 113 113 Pulse Oximetry 97 96 97 Oxygen Delivery Method Room Air Sepsis Recent Fever Within 48 Hours No Sepsis New/Unexplained Change in Mental Status N/A Sepsis Action Taken by Nursing No Action Required 01/22/21 12:12 01/22/21 12:30 01/22/21 13:00 Temperature Temperature Source Pulse Rate 60 61 Pulse Rate from SpO2 Sensor 63 62 Respiratory Rate 18 18 Blood Pressure 163/85 H 172/71 H 167/75 H Blood Pressure Mean 111 104 105 Pulse Oximetry 97 99 Oxygen Delivery Method Sepsis Recent Fever Within 48 Hours Sepsis New/Unexplained Change in Mental Status Sepsis Action Taken by Nursing 01/22/21 13:49 01/22/21 13:50 01/22/21 14:00 Temperature Temperature Source Pulse Rate 73 78 78 Pulse Rate from SpO2 Sensor 75 81 78 Respiratory Rate 18 18 18 Blood Pressure Blood Pressure Mean Pulse Oximetry 98 98 97 Oxygen Delivery Method Sepsis Recent Fever Within 48 Hours Sepsis New/Unexplained Change in Mental Status Sepsis Action Taken by Nursing 01/22/21 14:30 Temperature Temperature Source Pulse Rate 71 Pulse Rate from SpO2 Sensor 73 Respiratory Rate 18 Blood Pressure 161/75 H Blood Pressure Mean 103 Pulse Oximetry 95 Oxygen Delivery Method Sepsis Recent Fever Within 48 Hours Sepsis New/Unexplained Change in Mental Status Sepsis Action Taken by Nursing VITAL SIGNS: were reviewed as above. GENERAL:Non-toxic in appearance. SKIN: Warm dry and pink. HEAD: Normocephalic and atraumatic. OROPHARYNX: Is clear and moist NECK: Supple without lymphadenopathy or meningismus. LUNGS: Are clear. HEART: Regular rate and rhythm. ABDOMEN: Soft and nontender. EXTREMITIES: Warm and well perfused. NEUROLOGICALLY: Awake alert and oriented without focal deficit. Cranial nerves 2-12 are intact. There is no pronator drift. Cerebellar testing is within normal limits. There is rightward nystagmus. There is no facial droop. Speech is clear. Vision is grossly normal. MUSCULOSKELETAL: Good muscle tone. No evidence of trauma. Strength is sy mmetric. ALL NURSING NOTES WERE REVIEWED. Course Administered Medications Discontinued Medications Sodium Chloride (Nss 1000ml) 1,000 mls @ 999 mls/hr IV .Q1H1M ABDELRAHMAN Stop: 01/22/21 13:30 Last Infusion: 01/22/21 14:26 Dose: 0 mls/hr Documented by: [id number] Admin: 01/22/21 12:42 Dose: 999 mls/hr Documented by: [id number] Ioversol (Optiray 320 125ml) 125 ml IV ONCE ONE Stop: 01/22/21 13:40 Last Admin: 01/22/21 13:40 Dose: 125 ml Documented by: [id number] Meclizine HCl (Meclizine Hcl 25 Mg Tab) 25 mg PO NOW STA Stop: 01/22/21 12:27 Last Admin: 01/22/21 12:42 Dose: 25 mg Documented by: [id number] Medical Decision Making Differential Diagnosis Differential includes acute coronary syndrome, myocardial infarction, CVA, TIA, anemia, infection, pneumonia, UTI, pyelonephritis, poor nutrition, dehydration, electrolyte disturbance,hypoglycemia. Medical Records Attestation: I reviewed the patient's medical records. Home Medications Current Medication List: was personally reviewed by me Laboratory Data Attestation: I reviewed the patient's lab results. Result diagrams: 01/22/21 10:15 01/22/21 10:15 Lab Results 01/22/21 01/22/21 01/22/21 Range/Units 10:15 10:15 13:10 WBC 9.12 (4.8-10.8) K/uL RBC 4.33 (4.2-5.4) M/uL Hgb 13.5 (12.0-16.0) g/dL Hct 40.1 (37-47) % MCV 92.6 (80-100) fL MCH 31.2 (25-34) pg MCHC 33.7 (32-36) g/dL RDW Std Deviation 45.0 (36.4-46.3) fL RDW Coeff of Aashish 13.3 (11.5-14.5) % Plt Count 243 (130-400) K/uL MPV 10.4 (7.4-10.4) fL Immature Gran % (Auto) 0.2 % Neut % (Auto) 65.8 % Lymph % (Auto) 26.2 % [place] % (Auto) 7.1 % Eos % (Auto) 0.4 % Baso % (Auto) 0.3 % Neut # (Auto) 5.99 (1.4-6.5) K/uL Lymph # (Auto) 2.39 (1.2-3.4) K/uL [place] # (Auto) 0.65 H (0.11-0.59) K/uL Eos # (Auto) 0.04 (0-0.5) K/uL Baso # (Auto) 0.03 (0-0.2) K/uL Immature Gran # (Auto) 0.02 (0.00-0.02) K/uL Sodium 138 (136-145) mmol/L Potassium 4.0 (3.5-5.1) mmol/L Chloride 106 (98-107) mmol/L Carbon Dioxide 22 (21-32) mmol/L Anion Gap 10.0 (3-11) BUN 24 H (7-18) mg/dl Creatinine 1.13 (0.6-1.2) mg/dl Est Cr Clr Drug Dosing 46.0 ml/min Est GFR ( Amer) 53.2 ml/min Est GFR (Non-Af Amer) 45.9 ml/min BUN/Creatinine Ratio 20.9 H (10-20) Glucose 187 H (70-99) mg/dl Calcium 9.7 (8.5-10.1) mg/dl Total Bilirubin 0.7 (0.2-1) mg/dl AST 26 (15-37) U/L ALT 47 (12-78) U/L Alkaline Phosphatase 62 (45-117) U/L Total Protein 7.6 (6.4-8.2) gm/dl Albumin 4.2 (3.4-5.0) gm/dl Globulin 3.4 (2.5-4.0) gm/dl Albumin/Globulin Ratio 1.2 (0.9-2) Urine Color Yellow Urine Appearance Cloudy A (Clear) Urine pH 7.0 (4.5-7.5) Ur Specific [place] 1.016 (1.000-1.030) Urine Protein Trace H (Negative) Urine Glucose (UA) Negative (Negative) Urine Ketones Negative (Negative) Urine Blood Negative (Negative) Urine Nitrite Negative (Negative) Urine Bilirubin Negative (Negative) Urine Urobilinogen Negative (Negative) Ur Leukocyte Esterase 1+ H (Negative) Urine WBC (Auto) >30 H (0-5) /hpf Urine RBC (Auto) 5-10 H (0-4) /hpf U Hyaline Cast (Auto) 1-5 (0-5) /lpf U Epithel Cells (Auto) 0-5 (0-5) /lpf Urine Bacteria (Auto) 2+ H (Negative) COVID-19 Eval Order 01/22/21 Range/Units 15:06 WBC (4.8-10.8) K/uL RBC (4.2-5.4) M/uL Hgb (12.0-16.0) g/dL Hct (37-47) % MCV (80-100) fL MCH (25-34) pg MCHC (32-36) g/dL RDW Std Deviation (36.4-46.3) fL RDW Coeff of Aashish (11.5-14.5) % Plt Count (130-400) K/uL MPV (7.4-10.4) fL Immature Gran % (Auto) % Neut % (Auto) % Lymph % (Auto) % [place] % (Auto) % Eos % (Auto) % Baso % (Auto) % Neut # (Auto) (1.4-6.5) K/uL Lymph # (Auto) (1.2-3.4) K/uL [place] # (Auto) (0.11-0.59) K/uL Eos # (Auto) (0-0.5) K/uL Baso # (Auto) (0-0.2) K/uL Immature Gran # (Auto) (0.00-0.02) K/uL Sodium (136-145) mmol/L Potassium (3.5-5.1) mmol/L Chloride (98-107) mmol/L Carbon Dioxide (21-32) mmol/L Anion Gap (3-11) BUN (7-18) mg/dl Creatinine (0.6-1.2) mg/dl Est Cr Clr Drug Dosing ml/min Est GFR ( Amer) ml/min Est GFR (Non-Af Amer) ml/min BUN/Creatinine Ratio (10-20) Glucose (70-99) mg/dl Calcium (8.5-10.1) mg/dl Total Bilirubin (0.2-1) mg/dl AST (15-37) U/L ALT (12-78) U/L Alkaline Phosphatase (45-117) U/L Total Protein (6.4-8.2) gm/dl Albumin (3.4-5.0) gm/dl Globulin (2.5-4.0) gm/dl Albumin/Globulin Ratio (0.9-2) Urine Color Urine Appearance (Clear) Urine pH (4.5-7.5) Ur Specific [place] (1.000-1.030) Urine Protein (Negative) Urine Glucose (UA) (Negative) Urine Ketones (Negative) Urine Blood (Negative) Urine Nitrite (Negative) Urine Bilirubin (Negative) Urine Urobilinogen (Negative) Ur Leukocyte Esterase (Negative) Urine WBC (Auto) (0-5) /hpf Urine RBC (Auto) (0-4) /hpf U Hyaline Cast (Auto) (0-5) /lpf U Epithel Cells (Auto) (0-5) /lpf Urine Bacteria (Auto) (Negative) COVID-19 Eval Order Covid[facility] at [facility] Imaging Data Radiologist's Impression: Head CTA 01/22/21 12:26 HEAD CTA HISTORY: dizziness TECHNIQUE: Multiaxial CT images of the head were performed both before and after the intravenous administration of contrast to evaluate the major cerebral vessels. Maximum intensity projection images were also obtained. A dose lowering technique was utilized adhering to the principles of ALARA. COMPARISON: None. FINDINGS: There is no mass, hematoma, midline shift, or acute infarct. Mild atrophy and microvascular ischemic changes are noted. There is no significant stenosis, occlusion, or aneurysm seen within the bilateral ACAs, MCAs, or lead advisor. The major dural venous sinuses appear patent. Mild multifocal narrowing within the hypoplastic distal right vertebral artery. There is also mild focal narrowing within the distal left vertebral artery due to the calcified plaque. Moderate calcified plaque within the bilateral intracranial internal carotid arteries without significant stenosis. Severely hypoplastic left A1 segment. Otherwise, the remaining bilateral ACAs are widely patent. IMPRESSION: 1. No acute intracranial abnormality. 2. No significant stenosis, occlusion, or aneurysm within the [place]. 3. Mild narrowing within the distal bilateral vertebral arteries due to the calcified plaque. ACT 112: Negative or not required by law. Electronically signed by: Nathaniel Morrell M.D. 01/22/2021 2:10 PM Neck CTA 01/22/21 12:26 CT ANGIOGRAPHY OF THE NECK WITH CONTRAST CLINICAL HISTORY: Dizziness. COMPARISON STUDY: PET/CT February 27, 2015. Technique: CT angiography of the carotid and vertebral arteries was obtained using [employer] and 3D reconstruction on an independent workstation. NASCET criteria was utilized. Automated exposure control was utilized for the study. A dose lowering technique was utilized adhering to the principles of ALARA. Findings: No acute cervical spine fracture is noted. No suspicious osseous lesion within the cervical spine. There is mild calcified atherosclerotic plaque within the proximal bilateral internal carotid arteries without significant stenosis. There is no dissection within the major vessels of the neck. The left vertebral artery is dominant. There is mild stenosis of the intracranial portion of the left vertebral artery due to calcified atherosclerotic plaque. There are moderate multifocal stenoses of the intracranial portion of the right vertebral artery. There is mild stenosis at the origin of the right vertebral artery. IMPRESSION: 1. No significant stenosis within the bilateral common carotid or cervical internal carotid arteries. 2. 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 Mild stenosis at the origin of the right vertebral artery. ACT 112: Negative or not required by law. Electronically signed by: Josué Norton M.D. 01/22/2021 2:19 PM ECG Data Attestation: I personally reviewed and interpreted this ECG as follows: Indication: + weakness Rate (beats per minute): 80 Rhythm: + normal sinus ECG Intervals/blocks: + Normal QT-c ECG ST segments: no ST elevation ECG Findings: no PVCs MDM Narrative 8-year-old female presents with dizziness/vertigo that is worse with movement. CT scan of brain shows moderate multifocal stenosis in the intracranial portion of the right vertebral artery. Otherwise no acute process. The patient blood work was unremarkable. Urinalysis suggest infection. The patient was given some IV fluids as well as IV Zofran: Allow one tablet to dissolve under the tongue every 6 hours as needed for nausea or vomiting. (EMS) and p.o. meclizine here. She was also given IV Rocephin. She will be seen by the hospitalist as she is still vertiginous and continues to have horizontal nystagmus to the right on exam. Impression & Plan Vertigo, Acute UTI Discharge Plan Visit Data Chief Complaint: Dizziness ED Provider: Faheem Kennedy Discharge Problem: Vertigo, Acute UTI Patient Disposition: Being Evaluated by Hospitalist Forms Stand Alone Forms: [facility] Prescriptions Prescriptions: No Action (DME) OneTouch Ultra Blue Test Strip strip See Rx Instructions .ROUTE .MEDSUPPLY Qty: 100 RF: 5 levothyroxine 150 mcg tablet 150 mcg PO DAILY Qty: 90 RF: 3 simvastatin 20 mg tablet 20 mg PO HS Qty: 90 RF: 3 omeprazole 20 mg capsule,delayed release(DR/EC) 20 mg PO DAILY Qty: 90 RF: 3 celecoxib 100 mg capsule 100 mg PO DAILY Qty: 30 RF: 5 glipizide 5 mg tablet See Rx Instructions .ROUTE .COMPLEX Qty: 90 RF: 3 Hold Instructions: low Blood sugars losartan 100 mg tablet 100 mg PO DAILY Qty: 90 RF: 3 methenamine hippurate 1 gram tablet 1 g PO DAILY Qty: 90 RF: 3 amlodipine 10 mg tablet 10 mg PO DAILY Qty: 30 RF: 5 citalopram 40 mg tablet 40 mg PO DAILY Qty: 90 RF: 3 alprazolam 0.25 mg tablet 0.25 mg PO DAILY PRN (Reason: anxiety) Qty: 30 RF: 0 metformin 500 mg tablet 500 mg PO QAM RF: 0 letrozole [Femara] 2.5 mg tablet 2.5 mg PO DAILY Qty: 30 RF: 2 metformin 500 mg tablet 1,000 mg PO UD RF: 0 levothyroxine 25 mcg tablet 25 mcg PO 2XWK RF: 0 Referrals Referrals: Beka Anaya MD [Primary Care Provider] -
[2021-01-22] MEDS ORDERED: ASPIRIN CHEW 324 MG PO STA (16:37)
--- NOTE | 2021-01-22 16:52 | History & Physical Report ---
Date of Service January 22, 2021 Assessment & Plan (1) Dizziness: Patient with assessment consistent of both BPV with nystagmus concern for central pathology/posterior CVA CVA vs. BPVV - NI[facility]-0 MRI of brain - ASA 324 mg PO- add ASA daily - ECHO in morning - Symptoms responded to meclizine - Continue zofran and meclizine PRN - Start off with bland diet and advance as tolerated - PT/OT consult - Neuro exams q4 hours - neuro consult if MRI negative can defer consult (2) Vertigo: As above- however with nystagmus evaluate further (3) Recurrent UTI: Chronic on methenamine as outpatient - currently asymptomatic - Rocephin in EMD - reasonable at this time to continue for 24 hours with new RBC involved with her urine screen (4) Systolic murmur: chronic no change- ECHO in the morning - not on BB therapy (5) Type 2 diabetes mellitus: Actually recently was able to stop glipizide as part of her regimine - Hold metformin - Insulin sliding scale with CF 30 and ratio 1:15 - bland diet and advance as her symptoms improve (6) Hyperlipidemia: Previous lipid panel well controlled - continue Zocor 20mg - risk stratify if benefit for HDS (7) Depression with anxiety: Continue PRN Xanax - Continue citalopram (8) Hypothyroidism: Continue Synthroid- 150 mcg daily - TSH in morning (9) Osteoarthritis: Hold NSAID for workup - added ASA daily for primary prevention - Continue omeprazole 20mg - Chronic back pain - consider opiate if needed for short term relief while in house with decreased mobility History of Present Illness Primary Care Provider: Beka Anaya MD 80 YOF with past medical history of 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 Patient comes to the emergency room today via EMS for 1 day history dizziness associated with room spinning as well as hot flashes and nausea without vomiting. The patient states the symptoms started yesterday in the afternoon and she had to immediately sit down. Once her symptoms improved for a bit she was able to take a Dramamine, which improved her room spinning and nausea but remained with dizziness. She also denies any tinnitus or hearing changes. She did not sleep well through the night and symptoms persisted this morning. In the emergency room she had return of symptoms (room spinning, nausea, flush feeling) following Halpike maneuvers, without vomiting. She received meclizine and the room spinning and nausea abated. She had a CT of the head and CTA performed that CTA revealed mild stenosis of the right vertebral artery with moderate stenosis of intracranial portion of the right vert and mild stenosis of the left vertebral artery with atherosclerotic plaque. Patient does have horizontal and vertical nystagmus noted and no visual skew. Patient will be admitted to control symptoms further rule out CVA and optimize medications. Patient received 324 mg aspirin and MRI has been ordered. Patient has been vaccinated for COVID Allergies Allergy/AdvReac Type Severity Reaction Status Date / Time Sulfa (Sulfonamide Allergy Intermediate HIVES Verified 01/22/21 18:32 Antibiotics) sulfamethoxazole AdvReac Intermediate Hives Verified 01/22/21 18:32 [From Bactrim] trimethoprim [From Bactrim] AdvReac Intermediate Hives Verified 01/22/21 18:32 Home Medications Medication Instructions Recorded Confirmed Type letrozole 2.5 mg tablet 2.5 mg PO DAILY #30 tab 06/17/19 01/22/21 Rx blood sugar diagnostic #100 ea 06/18/19 01/22/21 Rx levothyroxine 150 mcg tablet 150 mcg PO DAILY #90 tab 02/16/20 01/22/21 Rx simvastatin 20 mg tablet 20 mg PO HS #90 tab 02/23/20 01/22/21 Rx omeprazole 20 mg capsule,delayed 20 mg PO DAILY #90 cap 04/24/20 01/22/21 Rx release celecoxib 100 mg capsule 100 mg PO DAILY #30 cap 06/07/20 01/22/21 Rx glipizide 5 mg tablet See Rx Instructions .ROUTE 06/20/20 01/22/21 Rx .COMPLEX #90 tab losartan 100 mg tablet 100 mg PO DAILY #90 tab 06/22/20 01/22/21 Rx methenamine hippurate 1 gram tablet 1 g PO DAILY #90 tab 10/09/20 01/22/21 Rx amlodipine 10 mg tablet 10 mg PO DAILY #30 tab 11/21/20 01/22/21 Rx metformin 500 mg tablet 500 mg PO QAM tab 12/19/20 01/22/21 History citalopram 40 mg tablet 40 mg PO DAILY #90 tab 12/26/20 01/22/21 Rx alprazolam 0.25 mg tablet 0.25 mg PO DAILY PRN #30 tab 01/16/21 01/22/21 Rx levothyroxine 25 mcg PO 2XWK 01/22/21 01/22/21 History metformin 1,000 mg PO UD 01/22/21 01/22/21 History Past Med/Surg History Medical History Depression with anxiety Fracture of right distal radius Hyperlipidemia Type 2 diabetes mellitus Surgical History H/O oral surgery History of back surgery S/P arthroscopy of right knee S/P breast lumpectomy S/P cataract surgery S/P hysterectomy S/P tonsillectomy Family History Father Stomach cancer Heart disease Hypertension Myocardial infarction Colon cancer Mother Heart disease Hypertension Diabetes Sister Hypertension Denies family history of Ovarian cancer Prostate cancer Breast cancer Social History Smoking Status: Never smoker Second Hand Exposure: No; Do You Dip or Chew Tobacco: No; Tobacco Cessation Education Requested by Patient: No Hx Alcohol Use: No Hx Substance Use: No Preferred Language: Sinhala Communication Ability: Effective Visual Impairment: No Limitations Hearing Ability: Normal Profile Saw Setup Operator Required: No Beliefs That Will Affect Care: None marital status: Current Living Situation: Spouse current occupational status: retired Other Information That Helps Us Care for You: No Feels Safe at Home: Yes Safety Concerns: Feels Safe At This Time Childhood Exposure to Second-Hand Smoke: No Dental Care, Regularly: Yes Physical Activity Frequency: Does not Exercise Seatbelt Use: always Sunscreen Use: Yes Assistive Devices: Glasses Review of Systems Review of Systems: REVIEW OF SYSTEMS: Constitutional: No fever, sweats or chills Eyes: No diplopia, no worsening or blurred vision ENT: normal hearing, no trouble swallowing Respiratory: No cough, sputum, dyspnea at rest or on exertion Cardiovascular: No chest pain, tightness or palpitations Abdomen: (+) nausea, No pain, nausea, diarrhea or constipation Musculoskeletal: (+) chronic back pain, No joint pain, calf pain, swelling Neurologic: (+) dizziness with balance changes since yesterday, No weakness, numbness/tingling, Psychiatric: (+) anxiety or depression Skin: No rash or itch Physical Exam Physical Exam: PHYSICAL EXAM: General: awake, alert, no apparent distress Head: Normocephalic, atraumatic ENT: PERRLA, EOMI, no pharyngeal exudate, mucous membranes moist Neuro: + nystagmus without visual skew, AAO x 3, speech clear and appropriate, strength intact bilaterally 5/5, sensation intact and equal all extremities and dermatomes, no pronator drift, NIH-0 Chest: equal rise and fall of the chest, no accessory muscle use, no heaves or thrills, Clear to auscultation, on room air, Cardiac: Regular rate and rhythm, telemetry reviewed, skin warm dry, cap refill <3 seconds, peripheral pulses +2 no JVD, systolic murmur, no JVD, no edema GI: NABS x 4 quadrants, soft, nontender to palpation, no rebound, guarding or tenderness : Spontaneously voiding, no pain, no CVA tenderness, Extremities: Normal inspection, no peripheral edema or erythema, calfs nontender to palpation Psych: Normal mood and affect Skin: no rash or erythema Results & Data Results & Data ([facility]) Vital Signs (Past 12 Hours) Vital Signs Temp Pulse Resp BP Pulse Ox 01/22/21 16:00 70 16 176/82 H 96 01/22/21 15:31 79 24 219/113 H 96 01/22/21 14:30 71 18 161/75 H 95 01/22/21 14:00 78 18 97 01/22/21 13:50 78 18 98 01/22/21 13:49 73 18 98 01/22/21 13:00 167/75 H 01/22/21 12:30 61 18 172/71 H 99 01/22/21 12:12 60 18 163/85 H 97 01/22/21 11:04 97 01/22/21 10:49 36.7 C 76 18 198/71 H 96 01/22/21 10:33 65 20 198/71 H 97 Laboratory Results Abnormal Labs 01/22/21 01/22/21 01/22/21 10:15 10:15 13:10 Owen # (Auto) 0.65 H BUN 24 H BUN/Creatinine Ratio 20.9 H Glucose 187 H Urine Appearance Cloudy A Urine Protein Trace H Ur Leukocyte Esterase 1+ H Urine WBC (Auto) >30 H Urine RBC (Auto) 5-10 H Urine Bacteria (Auto) 2+ H Diagnostic Findings Head CTA 01/22/21 12:26 HEAD CTA HISTORY: dizziness TECHNIQUE: Multiaxial CT images of the head were performed both before and after the intravenous administration of contrast to evaluate the major cerebral vessels. Maximum intensity projection images were also obtained. A dose lowering technique was utilized adhering to the principles of ALARA. COMPARISON: None. FINDINGS: There is no mass, hematoma, midline shift, or acute infarct. Mild atrophy and microvascular ischemic changes are noted. There is no significant stenosis, occlusion, or aneurysm seen within the bilateral ACAs, MCAs, or metal rivet machine operator. The major dural venous sinuses appear patent. Mild multifocal narrowing within the hypoplastic distal right vertebral artery. There is also mild focal narrowing within the distal left vertebral artery due to the calcified plaque. Moderate calcified plaque within the bilateral intracranial internal carotid arteries without significant stenosis. Severely hypoplastic left A1 segment. Otherwise, the remaining bilateral ACAs are widely patent. IMPRESSION: 1. No acute intracranial abnormality. 2. No significant stenosis, occlusion, or aneurysm within the ruby of [place]. 3. Mild narrowing within the distal bilateral vertebral arteries due to the calcified plaque. Electronically signed by: Nathaniel Morrell M.D. 01/22/2021 2:10 PM Neck CTA 01/22/21 12:26 CT ANGIOGRAPHY OF THE NECK WITH CONTRAST CLINICAL HISTORY: Dizziness. COMPARISON STUDY: PET/CT February 27, 2015. Technique: CT angiography of the carotid and vertebral arteries was obtained using Optiray and 3D reconstruction on an independent workstation. NASCET criteria was utilized. Automated exposure control was utilized for the study. A dose lowering technique was utilized adhering to the principles of ALARA. Findings: No acute cervical spine fracture is noted. No suspicious osseous lesio n within the cervical spine. There is mild calcified atherosclerotic plaque within the proximal bilateral internal carotid arteries without significant stenosis. There is no dissection within the major vessels of the neck. The left vertebral artery is dominant. There is mild stenosis of the intracranial portion of the left vertebral artery due to calcified atherosclerotic plaque. There are moderate multifocal stenoses of the intracranial portion of the right vertebral artery. There is mild stenosis at the origin of the right vertebral artery. IMPRESSION: 1. No significant stenosis within the bilateral common carotid or cervical internal carotid arteries. 2. 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 Mild stenosis at the origin of the right vertebral artery. Electronically signed by: Josué Norton M.D. 01/22/2021 2:19 PM Medications Administered Discontinued Medications Sodium Chloride (Nss 1000ml) 1,000 mls @ 999 mls/hr IV .Q1H1M ABDELRAHMAN Stop: 01/22/21 13:30 Last Infusion: 01/22/21 14:26 Dose: 0 mls/hr Documented by: [id number] Admin: 01/22/21 12:42 Dose: 999 mls/hr Documented by: [id number] Ceftriaxone Sodium (Rocephin) 1,000 mg in 50 mls @ 100 mls/hr IV NOW STA Stop: 01/22/21 16:12 Last Admin: 01/22/21 16:15 Dose: 100 mls/hr Documented by: [id number] Ioversol (Optiray 320 125ml) 125 ml IV ONCE ONE Stop: 01/22/21 13:40 Last Admin: 01/22/21 13:40 Dose: 125 ml Documented by: [id number] Meclizine HCl (Meclizine Hcl 25 Mg Tab) 25 mg PO NOW STA Stop: 01/22/21 12:27 Last Admin: 01/22/21 12:42 Dose: 25 mg Documented by: [id number] ECG Additional Comments: Sinus rhythm with Premature supraventricular complexes Nonspecific T wave abnormality Abnormal ECG When compared with ECG of 01-MAY-2017 21:16, Premature supraventricular complexes are now Present Nonspecific T wave abnormality, worse in Inferior leads Code Status & VTE Plan Code Status CODE: DNR/DNI VTE: SCD's, Heparin 5000 TID Supervising Physician Co-Signing Physician Notes Patient seen and examined at bedside. Obtained history and physical examination during face to face encounter with patient. I reviewed above note and agree with it. Discussed plan with MAYA Hernandez. I answered all of the patients questions. Patient will be admited under observation for her dizziness. Will obtain MRI brain to rule out stroke. If negative, likely BPPV. May benefit from PT. PG Care Time/CCT Total # of Minutes Spent Total Time Spent with Patient: Total time spent is greater than 50% in coordination of care (as documented) at patient's floor/unit and/or counseling patient: Coding Level of Care Code INT OBSERVATION CARE 70M LVL 3 Diagnoses Dizziness R42 Vertigo R42 Recurrent UTI N39.0 Systolic murmur R01.1 Type 2 diabetes mellitus E11.9 Diabetes mellitus complication status: without complication Diabetes mellitus manager long term care insulin use: without care home use Hyperlipidemia E78.5 Hyperlipidemia type: unspecified Depression with anxiety F41.8 Hypothyroidism E03.9 Hypothyroidism type: unspecified Osteoarthritis M47.819 Osteoarthritis location: spine Spinal osteoarthritis complication: without myelopathy or radiculopathy Spinal region: unspecified (1) Type 2 diabetes mellitus Diabetes mellitus complication status: without complication Diabetes mellitus care home insulin use: without care home use Qualified Code(s): E11.9 - Type 2 diabetes mellitus without complications (2) Hyperlipidemia Hyperlipidemia type: unspecified Qualified Code(s): E78.5 - Hyperlipidemia, unspecified (3) Hypothyroidism Hypothyroidism type: unspecified Qualified Code(s): E03.9 - Hypothyroidism, unspecified (4) Osteoarthritis Osteoarthritis location: spine Spinal osteoarthritis complication: without myelopathy or radiculopathy Spinal region: unspecified Qualified Code(s): M47.819 - Spondylosis without myelopathy or radiculopathy, site unspecified
--- NOTE | 2021-01-22 17:52 | Electrocardiogram Report ---
Test Reason : Blood Pressure : / mmHG Vent. Rate : 069 BPM Atrial Rate : 069 BPM P-R Int : 168 ms QRS Dur : 084 ms QT Int : 420 ms P-R-T Axes : 071 049 128 degrees QTc Int : 450 ms Sinus rhythm with Premature supraventricular complexes Nonspecific T wave abnormality Abnormal ECG When compared with ECG of 01-MAY-2017 21:16, Premature supraventricular complexes are now Present Nonspecific T wave abnormality, worse in Inferior leads Confirmed by Antolin Cox ([id number]) on 01/22/2021 5:51:38 PM Referred By: ED Confirmed By:Pancho Cox
[2021-01-22] MEDS ORDERED: GLUCAGON FOR INJ 1 MG VIAL SQ PRN (18:22)
[2021-01-22] MEDS ORDERED: DEXTROSE 50% 50 ML SYRINGE IV PRN (18:22)
[2021-01-22] MEDS ORDERED: GLUCOSE 10 TABS/TUBE PO PRN (18:22)
[2021-01-22] MEDS ORDERED: PHARMACIST DISCHARGE MED REC CONSULT PRN (18:22)
[2021-01-22] MEDS ORDERED: ALPRAZolam 0.25 MG TABLET PO PRN (18:22)
[2021-01-22] MEDS ORDERED: ONDANSETRON 4 MG OD TAB PO PRN (18:22)
[2021-01-22] MEDS ORDERED: CARBOHYDRATES FOR HYPOGLYCEMIA PO PRN (18:22)
[2021-01-22] MEDS ORDERED: GLUCOSE 40% GEL 15 GM TUBE PO PRN (18:22)
[2021-01-22] MEDS ORDERED: MoRPHine SULFATE 2 MG/ML CARP IV STA (19:22)
[2021-01-22] MEDS: ONDANSETRON INJ 2 MG/ML 2 ML VIAL IV SCH (19:40)
[2021-01-22] MEDS: LACTATED RINGER'S 1,000 ML IV SCH (19:48)
[2021-01-22] MEDS: INSULIN ASPART 100 UNITS/ML 3 ML PEN SC SCH ×2 (20:20→22:35)
[2021-01-22] MEDS ORDERED: SIMVASTATIN 20 MG TAB PO SCH (21:00)
[2021-01-22] MEDS: HEPARIN SOD 5,000 UNIT/0.5 ML VIAL SQ SCH (21:33)
[2021-01-23] MEDS: ONDANSETRON INJ 2 MG/ML 2 ML VIAL IV SCH ×3 (02:18→14:37)
[2021-01-23] MEDS: HEPARIN SOD 5,000 UNIT/0.5 ML VIAL SQ SCH (06:11)
[2021-01-23] MEDS ORDERED: LEVOTHYROXINE SODIUM 150 MCG TABLET PO SCH (06:30)
[2021-01-23 06:50] LABS: Basophils # (auto) 0.03 K/uL (0-0.2); Basophils % (auto) 0.3 %; Eosinophils # (auto) 0.06 K/uL (0-0.5); Eosinophils % (auto) 0.6 %; Hematocrit (blood only) 39.1 % (37-47); Immature Granulocytes # (auto) 0.02 K/uL (0.00-0.02); Immature Granulocytes % (auto) 0.2 %; Lymphocytes # (auto) 2.43 K/uL (1.2-3.4); Lymphocytes % (auto) 23.1 %; Mean Corpuscular Hemoglobin 31.4 pg (25-34); Mean Corpuscular Hgb Conc 33.2 g/dL (32-36); Mean Corpuscular Volume 94.4 fL (80-100); Mean Platelet Volume 9.9 fL (7.4-10.4); Monocytes # (auto) 0.81 K/uL (0.11-0.59); Monocytes % (auto) 7.7 %; Neutrophils # (auto) 7.16 K/uL (1.4-6.5); Neutrophils % (auto) 68.1 %; Platelet Count 207 K/uL (130-400); RDW Coefficient of Variation 13.3 % (11.5-14.5); RDW Standard Deviation 46.4 fL (36.4-46.3); Red Blood Count 4.14 M/uL (4.2-5.4); White Blood Count 10.51 K/uL (4.8-10.8)
--- NOTE | 2021-01-23 06:51 | Magnetic Resonance Report ---
MR brain wo con HISTORY: 80 years-old Female rule out posterior cva acute dizziness with strokelike symptoms COMPARISON: CT head, CTA head and neck of same day TECHNIQUE: Multiplanar multisequence MRI of the brain was obtained without the use of IV contrast. FINDINGS: Client Support Associate localizer images demonstrate no gross extracranial abnormality. There is no restricted diffusio n to suggest acute or subacute infarct. No acute intracranial hemorrhage, midline shift, abnormal ext ra axial collection, hydrocephalus or intracranial mass. Age-related involutional changes. Moderate T 2/FLAIR hyperintensities throughout the white matter are suggestive of chronic microvascular ischemic disease. Hyperostosis frontalis interna. The cerebral venous sinuses and major arterial flow voids a re patent. The mastoid air cells are clear. Paranasal sinuses are unremarkable. The skull, soft tissu es are within normal limits. Prior bilateral lens repair. IMPRESSION: No acute intracranial abnormality. No acute or subacute infarct. ACT 112: Negative or not required by law. The above report was generated using voice recognition software. It may contain grammatical, syntax o r spelling errors. Electronically signed by: Basil Dahl M.D. 01/23/2021 6:49 AM
[2021-01-23 07:38] LABS: BUN Creatinine Ratio 17.7 (10-20); Calcium 9.1 mg/dl (8.5-10.1); Creatinine Clr Calc Pharmacy 50.9 ml/min; Est GFR (African American) 60.9 ml/min; Est GFR (Non-African American) 52.5 ml/min; Magnesium 2.2 mg/dl (1.8-2.4); Potassium 3.7 mmol/L (3.5-5.1)
[2021-01-23 07:46] LABS: Estimated Average Glucose 134 mg/dl; Hemoglobin A1C 6.3 % (4.5-5.6)
[2021-01-23 07:49] LABS: Thyroid Stimulating Hormone 2.87 uIu/ml (0.300-4.500)
--- NOTE | 2021-01-23 08:47 | Neurology Consultation ---
Date of Consultation January 23, 2021 Assessment & Plan (1) BPPV (benign paroxysmal positional vertigo): Probable benign positional paroxysmal vertigo. Appears to be resolved this morning. Intact neurological examination. No evidence of acute or subacute stroke on brain MRI. Incidental mild to moderate stenoses of the vertebral arteries noted. Patient did inform me that she was taking daily low- dose aspirin as an outpatient. Would continue with this medication. Continue with Zocor as well. If symptoms recur consider physical therapy/Patt maneuvers. Meclizine and Zofran as needed. No further immediate neurological recommendations. Patient probably does not require additional outpatient appointments with neurology. May follow-up with her PCP. History of Present Illness Reason for Consultation: Stroke versus benign positional paroxysmal vertigo Requesting Physician: YARI Cook Attending Physician: Shereen Garrett MD History of Present Illness The patient is an 80-year-old female with a chief complaint of vertigo. She complains of an uncomfortable spinning sensation that began yesterday morning, worse with movement, associated nausea. No associated diplopia, vision loss, dysarthria, dysphagia focal weakness, paresthesia, drop attack, or alteration in alertness/consciousness. Her symptoms did not respond adequately to conservative management in the emergency department. She was noted to have some horizontal nystagmus as well. CT angiography revealed mild to moderate vertebral artery stenosis. She was admitted to the hospital for further evaluation and management and to potentially rule out stroke. A follow-up brain MRI was completed which was negative for acute or subacute infarct, however. The patient reports that she is currently asymptomatic. She has never had vertigo in the past. No history of stroke or TIA. Patient does have type 2 diabetes mellitus and hyperlipidemia. She takes daily low-dose aspirin and simvastatin. Allergies Allergy/AdvReac Type Severity Reaction Status Date / Time Sulfa (Sulfonamide Allergy Intermediate HIVES Verified 01/22/21 18:32 Antibiotics) sulfamethoxazole AdvReac Intermediate Hives Verified 01/22/21 18:32 [From Bactrim] trimethoprim [From Bactrim] AdvReac Intermediate Hives Verified 01/22/21 18:32 Home Medications Medication Instructions Recorded Confirmed Type letrozole 2.5 mg tablet 2.5 mg PO DAILY #30 tab 06/17/19 01/22/21 Rx blood sugar diagnostic #100 ea 06/18/19 01/22/21 Rx levothyroxine 150 mcg tablet 150 mcg PO DAILY #90 tab 02/16/20 01/22/21 Rx simvastatin 20 mg tablet 20 mg PO HS #90 tab 02/23/20 01/22/21 Rx omeprazole 20 mg capsule,delayed 20 mg PO DAILY #90 cap 04/24/20 01/22/21 Rx release celecoxib 100 mg capsule 100 mg PO DAILY #30 cap 06/07/20 01/22/21 Rx glipizide 5 mg tablet See Rx Instructions .ROUTE 06/20/20 01/22/21 Rx .COMPLEX #90 tab losartan 100 mg tablet 100 mg PO DAILY #90 tab 06/22/20 01/22/21 Rx methenamine hippurate 1 gram tablet 1 g PO DAILY #90 tab 10/09/20 01/22/21 Rx amlodipine 10 mg tablet 10 mg PO DAILY #30 tab 11/21/20 01/22/21 Rx metformin 500 mg tablet 500 mg PO QAM tab 12/19/20 01/22/21 History citalopram 40 mg tablet 40 mg PO DAILY #90 tab 12/26/20 01/22/21 Rx alprazolam 0.25 mg tablet 0.25 mg PO DAILY PRN #30 tab 01/16/21 01/22/21 Rx levothyroxine 25 mcg PO 2XWK 01/22/21 01/22/21 History metformin 1,000 mg PO UD 01/22/21 01/22/21 History Patient History Medical History Depression with anxiety Fracture of right distal radius Hyperlipidemia Type 2 diabetes mellitus Surgical History H/O oral surgery History of back surgery S/P arthroscopy of right knee S/P breast lumpectomy S/P cataract surgery S/P hysterectomy S/P tonsillectomy Family History Father Stomach cancer Heart disease Hypertension Myocardial infarction Colon cancer Mother Heart disease Hypertension Diabetes Sister Hypertension Denies family history of Ovarian cancer Prostate cancer Breast cancer Social History Smoking Status: Never smoker Second Hand Exposure: No; Do You Dip or Chew Tobacco: No; Tobacco Cessation Education Requested by Patient: No Hx Alcohol Use: No Hx Substance Use: No Preferred Language: Yakut Communication Ability: Effective Visual Impairment: No Limitations Hearing Ability: Normal Occupational Health And Safety Officer Required: No Beliefs That Will Affect Care: None marital status: Current Living Situation: Spouse current occupational status: retired Other Information That Helps Us Care for You: No Feels Safe at Home: Yes Safety Concerns: Feels Safe At This Time Childhood Exposure to Second-Hand Smoke: No Dental Care, Regularly: Yes Physical Activity Frequency: Does not Exercise Seatbelt Use: always Sunscreen Use: Yes Assistive Devices: Glasses Review of Systems Constitutional: no fever and no chills Eyes: no blind spots and no diplopia Ear, Nose, Mouth, Throat: no ear pain, no tinnitus and no hearing loss Respiratory: no cough and no dyspnea Cardiovascular: no chest pain and no palpitations Gastrointestinal: + nausea; no vomiting Genitourinary: no dysuria Musculoskeletal: no neck pain and no myalgia Integumentary: no rash and no lesions Neurologic: as per Subjective / HPI and + dizziness; no localized weakness, no loss of sensation, no tremor(s), no seizure-like activity, no syncope, no headache(s), no confusion and no memory loss Psychiatric: no depression and no anxiety Hematologic / Lymphatic: no easy bleeding and no easy bruising Exam (Neuro) Constitutional: well developed and well nourished; no acute distress Eyes: normal visual antunez by confrontation, PERRL, normal accommodation and EOM intact bilaterally; no fundoscopic abnormality, no nystagmus and no papilledema Cardiovascular: Vessels: normal carotid upstroke; no carotid bruit Neurologic: Oriented to:: Person, Place and Time Memory: Short Term Intact and Remote Intact Attention: Span Intact and Concentration Intact Language: Naming Objects and Repeating Phrases Speech Fluency: negative Dysarthria Speech Aphasia: negative Aphasia Fund of Knowledge: Current Events, Past History and Vocabulary Cranial Nerves: Normal II (Visual antunez full to confrontation, visual acuity normal), III, IV, (Pupils equal round reactive to light and accommodation, eye movements normal), V (Facial sensation intact), VII (There is no facial droop or weakness), VIII (Hearing intact), IX, X (Palate elevates to midline), XI (Shoulder shrug intact) and XII (Tongue protrudes to midline) Motor Strength: Normal Lower Extremities and Normal Upper Extremities; negative Pronator Drift Motor Tone: Normal Lower Extremities and Normal Upper Extremities Muscle Bulk/Involuntary Movements: No Involuntary Movements; negative Muscle Atrophy Sensation: Light Touch Intact, Pain/Temperature Intact, Vibration Intact and Proprioception Intact Coordination: Normal; negative Limited Balance, Dysdiadochokinesia, Finger-Nose Abnormal and Heel-Saenz Abnormal Deep Tendon Reflexes: Rt Triceps: 2+, Lt Triceps: 2+, Rt Biceps: 2+, Lt Biceps: 2+, Rt Brachioradialis: 2+, Lt Brachioradialis: 2+, Rt Patellar: 2+, Lt Patellar: 2+, Rt Ankle: 1+ and Lt Ankle: 1+ Special Tests: negative Babinski Present Gait: Normal Station and Gait Results & Data ([facility]) Vital Signs (Past 12 Hours) Vital Signs Temp Pulse Pulse Resp BP Pulse Ox 01/23/21 07:39 61 01/23/21 07:32 36.5 C 62 16 167/73 H 96 01/23/21 05:16 72 01/23/21 04:16 36.5 C 74 18 177/75 H 90 01/22/21 23:59 36.9 C 83 18 197/79 H 93 Laboratory Results WBC 10.51, hemoglobin 13.0, hematocrit 39.1, platelet count 207, sodium 139, potassium 3.7, BUN 18, creatinine 1.01, glucose 117, hemoglobin A1c 6.3, calcium 9.1, magnesium 2.2, triglycerides 245, cholesterol 165, LDL 79, VLDL 49, HDL 37, TSH 2.870 Diagnostic Findings CTA of the head negative for significant stenosis, occlusion, or aneurysm within the [place] of [place]. There is mild narrowing within the distal bilateral vertebral arteries due to calcified plaque. CTA of the neck negative for significant stenosis within the bilateral common carotid or cervical internal carotid arteries. There is moderate multifocal stenoses within the intracranial portion of the right vertebral artery and mild stenosis at the origin of the right vertebral artery. There is mild stenosis of the intracranial portion of the left vertebral artery due to calcified atherosclerotic plaque. Brain MRI negative for acute or subacute infarct. There is a moderate degree of chronic small vessel ischemic disease. I reviewed the images as well as the radiologist's interpretation of these tests and agree. Electrocardiogram reveals a sinus rhythm with PVCs, 69 bpm. Coding Level of Care Code 68196 Initial Inpt Care Lvl 3 Diagnoses BPPV (benign paroxysmal positional vertigo) H81.10
[2021-01-23] MEDS: MECLIZINE 12.5 MG TAB PO PRN ×2 (08:56→17:20)
[2021-01-23] MEDS ORDERED: ASPIRIN 81 MG ECTAB PO SCH (09:00)
[2021-01-23] MEDS ORDERED: LETROZOLE 2.5 MG TAB PO SCH (09:00)
[2021-01-23] MEDS ORDERED: PANTOprazole 40 MG TAB PO SCH (09:00)
[2021-01-23] MEDS ORDERED: CITALOPRAM 40 MG TAB PO SCH (09:00)
[2021-01-23] MEDS ORDERED: amLODIPine BESYLATE 5 MG TAB PO SCH (09:00)
[2021-01-23] MEDS: INSULIN ASPART 100 UNITS/ML 3 ML PEN SC SCH ×2 (09:04→12:25)
[2021-01-23] MEDS: LACTATED RINGER'S 1,000 ML IV SCH (09:47)
[2021-01-23] MEDS ORDERED: cefTRIAXone SODIUM 2,000 MG in DEXTROSE 5% 50 ML IV SCH (10:00)
--- NOTE | 2021-01-23 16:25 | Discharge Summary ---
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 Patient comes to the emergency room today via EMS for 1 day history dizziness associated with room spinning as well as hot flashes and nausea without vomiting. The patient states the symptoms started yesterday in the afternoon and she had to immediately sit down. Once her symptoms improved for a bit she was able to take a Dramamine, which improved her room spinning and nausea but remained with dizziness. She also denies any tinnitus or hearing changes. She did not sleep well through the night and symptoms persisted this morning. In the emergency room she had return of symptoms (room spinning, nausea, flush feeling) following Halpike maneuvers, without vomiting. She received meclizine and the room spinning and nausea abated. She had a CT of the head and CTA performed that CTA revealed mild stenosis of the right vertebral artery with moderate stenosis of intracranial portion of the right vert and mild stenosis of the left vertebral artery with atherosclerotic plaque. Patient does have horizontal and vertical nystagmus noted and no visual skew. Patient will be admitted to control symptoms further rule out CVA and optimize medications. Patient received 324 mg aspirin and MRI has been ordered. Patient has been vaccinated for COVID Principal Diagnosis BPPV, UTI Discharge Exam Constitutional WD/WN, vitals as above + obese Eyes PERRL, conjunctivae normal, anicteric sclerae ENMT external ear and nose normal, oropharynx normal Neck trachea midline, no thyromegaly Respiratory normal respiratory effort, lungs clear to auscultation Cardiovascular Rate/Rhythm: regular rate and regular rhythm Heart Sounds: + murmur (2/6 TOBI at RUSB) Extremities: no edema Chest (Breasts) Chest: normal inspection of chest Gastrointestinal (Abdomen) normal bowel sounds, soft, nontender, no hepatosplenomegaly Musculoskeletal Extremities: extremities normal to inspection; no cyanosis and no clubbing Skin no rashes, warm and dry Neurologic PERRL, EOMI, accommodation nl, no face palsy, no dysarthria CN's II-XI intact bilaterally, moves all extremities and awake; no focal motor deficits and not confused Speech / Cognition: normal speech and no expressive aphasia Motor/Sensory: no sensory deficit Psychiatric A+Ox3, euthymic affect Lymphatic no lymphedema Discharge Data Allergies Allergy/AdvReac Type Severity Reaction Status Date / Time Sulfa (Sulfonamide Allergy Intermediate HIVES Verified 01/22/21 18:32 Antibiotics) sulfamethoxazole AdvReac Intermediate Hives Verified 01/22/21 18:32 [From Bactrim] trimethoprim [From Bactrim] AdvReac Intermediate Hives Verified 01/22/21 18:32 Consultations 01/22/21 15:54 ED Decision to Admit Stat 01/22/21 18:22 Consult Neurology Routine Ordered Studies 01/22/21 12:26 CT angio head wo/w Stat CT angio neck with con Stat 01/22/21 15:47 MR brain wo con Routine Head CTA 01/22/21 12:26 HEAD CTA HISTORY: dizziness TECHNIQUE: Multiaxial CT images of the head were performed both before and after the intravenous administration of contrast to evaluate the major cerebral vessels. Maximum intensity projection images were also obtained. A dose lowering technique was utilized adhering to the principles of ALARA. COMPARISON: None. FINDINGS: There is no mass, hematoma, midline shift, or acute infarct. Mild atrophy and microvascular ischemic changes are noted. There is no significant stenosis, occlusion, or aneurysm seen within the bilateral ACAs, MCAs, or network operations center engineer. The major dural venous sinuses appear patent. Mild multifocal narrowing within the hypoplastic distal right vertebral artery. There is also mild focal narrowing within the distal left vertebral artery due to the calcified plaque. Moderate calcified plaque within the bilateral intracranial internal carotid arteries without significant stenosis. Severely hypoplastic left A1 segment. Otherwise, the remaining bilateral ACAs are widely patent. IMPRESSION: 1. No acute intracranial abnormality. 2. No significant stenosis, occlusion, or aneurysm within the [place] of [place]. 3. Mild narrowing within the distal bilateral vertebral arteries due to the calcified plaque. ACT 112: Negative or not required by law. Electronically signed by: Nathaniel Morrell M.D. 01/22/2021 2:10 PM Neck CTA 01/22/21 12:26 CT ANGIOGRAPHY OF THE NECK WITH CONTRAST CLINICAL HISTORY: Dizziness. COMPARISON STUDY: PET/CT February 27, 2015. Technique: CT angiography of the carotid and vertebral arteries was obtained using [employer] and 3D reconstruction on an independent workstation. NASCET criteria was utilized. Automated exposure control was utilized for the study. A dose lowering technique was utilized adhering to the principles of ALARA. Findings: No acute cervical spine fracture is noted. No suspicious osseous lesion within the cervical spine. There is mild calcified atherosclerotic plaque within the proximal bilateral internal carotid arteries without significant stenosis. There is no dissection within the major vessels of the neck. The left vertebral artery is dominant. There is mild stenosis of the intracranial portion of the left vertebral artery due to calcified atherosclerotic plaque. There are moderate multifocal stenoses of the intracranial portion of the right vertebral artery. There is mild stenosis at the origin of the right vertebral artery. IMPRESSION: 1. No significant stenosis within the bilateral common carotid or cervical internal carotid arteries. 2. 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 Mild stenosis at the origin of the right vertebral artery. ACT 112: Negative or not required by law. Electronically signed by: Josué Norton M.D. 01/22/2021 2:19 PM Brain MRI 01/22/21 15:47 MR brain wo con HISTORY: 80 years-old Female rule out posterior cva acute dizziness with strokelike symptoms COMPARISON: CT head, CTA head and neck of same day TECHNIQUE: Multiplanar multisequence MRI of the brain was obtained without the use of IV contrast. FINDINGS: Construction Assistant localizer images demonstrate no gross extracranial abnormality. There is no restricted diffusion to suggest acute or subacute infarct. No acute intracranial hemorrhage, midline shift, abnormal extra axial collection, hydrocephalus or intracranial mass. Age-related involutional changes. Moderate T2/FLAIR hyperintensities throughout the white matter are suggestive of chronic microvascular ischemic disease. Hyperostosis frontalis interna. The cerebral venous sinuses and major arterial flow voids are patent. The mastoid air cells are clear. Paranasal sinuses are unremarkable. The skull, soft tissues are within normal limits. Prior bilateral lens repair. IMPRESSION: No acute intracranial abnormality. No acute or subacute infarct. ACT 112: Negative or not required by law. The above report was generated using voice recognition software. It may contain grammatical, syntax or spelling errors. Electronically signed by: Basil Dahl M.D. 01/23/2021 6:49 AM Hospital Course (1) Dizziness: Stroke workup negative MRI brain neg for stroke CTA head/neck with moderate multifocal stenoses within the intracranial portion of the right vertebral artery. Mild stenosis at the origin of the right vertebral artery as well as mild narrowing of bilat distal vertebral arteries. ECHO negative No arrhythmias on tele Consistent with BPPV Much improved with meclizine Did well with PT/OT and can go home with home health, Patt maneuvers Appreciate Neuro consult -continue meclizine prn (2) BPPV (benign paroxysmal positional vertigo): (3) Recurrent UTI: Chronic on methenamine as outpatient - currently asymptomatic - was given Rocephin x 2 doses here, Ur cx with GNR, ID pending at time of d ischarge -continue one more day of keflex but likely asymptomatic bacteriuria (4) Type 2 diabetes mellitus: Actually recently was able to stop glipizide as part of her regimen - Hold metformin until 48 hrs after CTA - HgbA1C well controlled here at 6.3% (5) Hyperlipidemia: lipid panel well controlled - continue Zocor 20mg (6) Depression with anxiety: Continue PRN Xanax - Continue citalopram (7) Hypothyroidism: Continue Synthroid- 150 mcg daily - TSH normal (8) Osteoarthritis: ok to continue NSAID (9) Vertebral artery stenosis: as above continue ASA 81mg daily, statin (10) HTN (hypertension): BPs mildly elevated here but losartan was held -continue losartan, amlodipine (11) Aortic stenosis: moderate on ECHO follow up as outpt with PCP (12) Mitral regurgitation: moderate on ECHO follow outpt (13) Systolic murmur: ECHO with , MR as above (14) DVT prophylaxis: Heparin SQ Dispo-stable for dc to home Total Time Total Time Spent Total Time Spent (In Minutes): 35 min Total Time Includes: Examination of the Patient, Discharge Planning and Medication Reconciliation Discharge Plan Discharge Items Patient Disposition: Home - Home Health Services Reason For Visit: DIZZINESS Discharge Diagnosis: BPPV (benign paroxysmal positional vertigo), UTI Condition on Discharge: Good Activity: As commented below Exercise/Sports: Gradually increase as tolerated Non-emergency contact: Primary Care Provider Call non-emergency contact if: you have any medication questions and your symptoms worsen Follow-up/Referrals: Beka Anaya MD [Primary Care Provider] - 01/31/21 11:20 am (Follow up within 1-2 weeks. If you have any questions or need to change this appointment, please call [phone].) Diet: Heart Healthy Addtl Attending Provider Instructions: You were admitted for dizziness and had a brain MRI which showed you did NOT have a stroke. The Neurologist saw you and thinks that you have vertigo. This can be treated with home Patt maneuvers and meclizine to be taken as needed. The home physical therapist can demonstrate the Patt maneuvers for you. Please also finish out the course of antibiotics for 1 more day for your UTI. Please DO NOT RESTART your metformin until 01/25 in the morning due to the interaction with the IV dye you received for your CT scans. Please follow up with your PCP within 1-2 weeks. Pending Studies at Discharge: Yes Stand-Alone Forms: My [facility] Medications and DC Order Prescriptions: New aspirin 81 mg Tablet,Delayed Release (Dr/Ec) 81 mg PO QAM Qty: 30 RF: 0 meclizine 12.5 mg Tablet 12.5 mg PO Q6H PRN (Reason: dizziness) Qty: 10 RF: 0 cephalexin 500 mg capsule 500 mg PO BID Qty: 2 RF: 0 Continued (DME) OneTouch Ultra Blue Test Strip strip See Rx Instructions .ROUTE .MEDSUPPLY Qty: 100 RF: 5 levothyroxine 150 mcg tablet 150 mcg PO DAILY Qty: 90 RF: 3 simvastatin 20 mg tablet 20 mg PO HS Qty: 90 RF: 3 omeprazole 20 mg capsule,delayed release(DR/EC) 20 mg PO DAILY Qty: 90 RF: 3 celecoxib 100 mg capsule 100 mg PO DAILY Qty: 30 RF: 5 glipizide 5 mg tablet See Rx Instructions .ROUTE .COMPLEX Qty: 90 RF: 3 Hold Instructions: low Blood sugars losartan 100 mg tablet 100 mg PO DAILY Qty: 90 RF: 3 methenamine hippurate 1 gram tablet 1 g PO DAILY Qty: 90 RF: 3 amlodipine 10 mg tablet 10 mg PO DAILY Qty: 30 RF: 5 citalopram 40 mg tablet 40 mg PO DAILY Qty: 90 RF: 3 alprazolam 0.25 mg tablet 0.25 mg PO DAILY PRN (Reason: anxiety) Qty: 30 RF: 0 metformin 500 mg tablet 500 mg PO QAM RF: 0 letrozole [Femara] 2.5 mg tablet 2.5 mg PO DAILY Qty: 30 RF: 2 metformin 500 mg tablet 1,000 mg PO UD RF: 0 levothyroxine 25 mcg tablet 25 mcg PO 2XWK RF: 0 Discharge Orders: Discharge Order (Routine); Ordered 01/23/21 Ordered By: Shereen Alicia/Other Patient Handouts: Managing Type 2 Diabetes, A1C Admission Data Admit Date/Time: 01/22/21 16:37 Attending Provider: Shereen Garrett Admit Provider: Merrill Hernandez Primary Care Provider: Beka Anaya V. Other Providers: Maninder Jacques Brian A. ; Manish Bunn [facility] Coding Level of Care Code 73409 OBS Care - Discharge Diagnoses Dizziness R42 BPPV (benign paroxysmal positional vertigo) H81.10 Recurrent UTI N39.0 Type 2 diabetes mellitus E11.9 Diabetes mellitus complication status: without complication Diabetes mellitus free lance model insulin use: without correction use Hyperlipidemia E78.5 Hyperlipidemia type: unspecified Depression with anxiety F41.8 Hypothyroidism E03.9 Hypothyroidism type: unspecified Osteoarthritis M47.819 Osteoarthritis location: spine Spinal osteoarthritis complication: without myelopathy or radiculopathy Spinal region: unspecified Vertebral artery stenosis I65.09 HTN (hypertension) I10 Aortic stenosis I35.0 Mitral regurgitation I34.0 Systolic murmur R01.1 DVT prophylaxis Z29.9
--- NOTE | 2021-01-23 16:37 | XCELERA ---
[id number]
== END 2021-01-23 17:35 | disposition home health service (06) ==
LOC: 2N 10:27 → ED 10:27 → SUATTDRO 16:37 → 2N 17:24

== ENCOUNTER 2021-04-10 21:18 | Inpatient (IN) ==
[2021-04-10 22:02] LABS: Basophils # (auto) 0.01 K/uL (0-0.2); Basophils % (auto) 0.2 %; Immature Granulocytes # (auto) 0.01 K/uL (0.00-0.02); Immature Granulocytes % (auto) 0.2 %; Lymphocytes # (auto) 0.66 K/uL (1.2-3.4); Mean Corpuscular Hemoglobin 31.4 pg (25-34); Mean Corpuscular Hgb Conc 32.5 g/dL (32-36); Mean Corpuscular Volume 96.6 fL (80-100); Mean Platelet Volume 10.5 fL (7.4-10.4); Monocytes # (auto) 0.49 K/uL (0.11-0.59); Monocytes % (auto) 8.9 %; Neutrophils # (auto) 4.35 K/uL (1.4-6.5); Neutrophils % (auto) 78.7 %; Platelet Count 158 K/uL (130-400); RDW Standard Deviation 46.1 fL (36.4-46.3); Red Blood Count 4.14 M/uL (4.2-5.4); White Blood Count 5.52 K/uL (4.8-10.8)
[2021-04-10 22:13] LABS: Partial Thromboplastin Ratio 1.1; Partial Thromboplastin Time 29.5 Seconds (21.0-31.0)
[2021-04-10] MEDS ORDERED: SODIUM CHLORIDE 0.9% 1000ML 1,000 ML IV ONE (22:16)
[2021-04-10] MEDS ORDERED: dexAMETHasone**PF** 10 MG/ML VIAL IV ONE (22:16)
[2021-04-10 22:22] LABS: Alanine Aminotransferase 29 U/L (12-78); Albumin Level 3.1 gm/dl (3.4-5.0); Aspartate Aminotransferase 34 U/L (15-37); BUN Creatinine Ratio 17.6 (10-20); Blood Urea Nitrogen 19 mg/dl (7-18); Calcium 8.5 mg/dl (8.5-10.1); Carbon Dioxide 23 mmol/L (21-32); Chloride 108 mmol/L (98-107); Creatinine Clr Calc Pharmacy 48.6 ml/min; Est GFR (African American) 56.1 ml/min; Est GFR (Non-African American) 48.4 ml/min; Glucose 98 mg/dl (70-99); Magnesium 1.8 mg/dl (1.8-2.4); Potassium 4.4 mmol/L (3.5-5.1); Sodium 138 mmol/L (136-145)
--- NOTE | 2021-04-10 22:22 | Emergency Department Note ---
Impression & Plan COVID-19, Hypoxia, Acute dehydration ED Provider Note Name: STEVE VALERO Age: 80 Sex: F Arrives Via: Ambulance Informant: Patient, EMS ED Provider: Edward Olmedo MD Chief Complaint: weakness Impression: Covid 19 Hypoxia Acute Dehydration Medical Decision Making: Very pleasant 80 yr old female with extensive PMH arrives with 1 week worsening weakness, diarrhea and shortness of breath with known Covid-19 for the previous week. She is hypoxic on arrival and quite dehydrated. Fluids and Decadron ordered. Patient looks improved in NC. No significant chest pain nor persistent hypoxia/tachy thus will hold on CTA at this time. CXR with infiltrat es consistent with covid. Will hold on abx at this time and defer to hospitalist. Hospitalist in to evaluate further. Prior Medical Record and Triage/Nursing Notes reviewed by Me Additional history obtained from chart Differentials:Reactive airway disease, pneumonia, pneumothorax, COPD, CHF, infections, cardiac ischemia, pulmonary embolism, musculoskeletal, gastrointestinal, as well as other pathologies. Vital Signs: reviewed and remarkable for hypoxia Interventions: decadron 10mg iv, nss bolus 1 L IV Labs:Reviewed and remarkable for no significant abnormalities Imaging:X ray results are stated below per my interpretation: Chest: 1 view: bilateral infiltrates EKG:Per My Interpretation: Indication Hypoxia: NSR 87 bpm, qtc 433. No Ectopy. No Ischemia. Compared to EKG 01/22/21, no significant changes. Cardiac/Tele Monitoring: Cardiac Monitoring: An Order was placed for continuous cardiac monitoring. The monitor shows a rate of 8 with a normal sinus rhythm. Consults:Dr Dung MENDIETA Hospitalist Plan: Disposition:Hospitalization. Condition: Good History of Present Illness:80 yr old female arrives for evaluation of covid. Patient notes she was fully vaccinated with 2nd vaccine 7 months ago for Covid. She began feeling ill 1 week ago. Worsening weakness, fatigue, nausea, diarrhea, fevers, chills, shortness of breath and generalized malaise. Worsen ing at home to point where unable to stand. Denies current chest pain, syncope, headache, productive cough, leg swelling, calf pain, rashes, bruising, blood in stool nor other symptoms. Exertion makes worse, rest mildly better. No medications prior to arrival. has covid as well. ROS: See above HPI for pertinent positives & negatives. A total of 10 systems reviewed and were otherwise negative. Past Medical History:See Below Past Surgical History:See Below Family History:See Below Social History:See Below Home Medications:See Below Allergies:See Below Vitals:Blood Pressure: 134/68, Pulse 83, RR 30, T 37.0C, O2 87% on RA Physical Exam: GENERAL: Patient is dehydrated and tired appearing and in moderate distress. EYES: No scleral icterus, unremarkable pupils. ENT: Mucous membranes dry, no nasal congestion. NECK: No masses appreciated, nomeningismus, trachea is midline. RESPIRATORY: Tachypnea/dyspnea with diffuse crackles CARDIOVASCULAR: Regular rate and rhythm.No murmurs, rubs, gallops appreciated. GASTROINTESTINAL: Abdomen soft, non-tender, no peritonitis.Bowel sounds positive.No masses appreciated. BACK: No midline tenderness, no CVA tenderness EXTREMITIES: Normal motion all extremities, no cyanosis, no edema. NEUROLOGIC: Alert and oriented, no acute motor or sensory deficits, no focal weakness, cranial nerves grossly intact. SKIN: No rash, no jaundice, no diaphoresis. PSYCH: Appropriate GCS: 15 ED Course: Times/Reassessments: stable, looks well on NC O2 Edward Olmedo MD Past Med/Surg History Medical History (Updated 04/11/21 @ 03:12 by Edward Olmedo MD) Aortic stenosis Depression with anxiety Fracture of right distal radius Hyperlipidemia Mitral regurgitation Type 2 diabetes mellitus Vertebral artery stenosis Surgical History H/O oral surgery History of back surgery S/P arthroscopy of right knee S/P breast lumpectomy S/P cataract surgery S/P hysterectomy S/P tonsillectomy Family History Father Stomach cancer Heart disease Hypertension Myocardial infarction Colon cancer Mother Heart disease Hypertension Diabetes Sister Hypertension Denies family history of Ovarian cancer Prostate cancer Breast cancer Social History Smoking Status: Never smoker Second Hand Exposure: No; Hx Alcohol Use: No Hx Substance Use: No Preferred Language: Belizean Communication Ability: Effective Visual Impairment: No Limitations Hearing Ability: Normal Recovery Specialist Required: No Beliefs That Will Affect Care: None marital status: Current Living Situation: Spouse current occupational status: retired Feels Safe at Home: Yes Childhood Exposure to Second-Hand Smoke: No Dental Care, Regularly: Yes Physical Activity Frequency: Does not Exercise Seatbelt Use: always Sunscreen Use: Yes Assistive Devices: Glasses Allergies Allergies Allergy/AdvReac Type Severity Reaction Status Date / Time Sulfa (Sulfonamide Allergy Intermediate HIVES Verified 04/10/21 22:57 Antibiotics) sulfamethoxazole AdvReac Intermediate Hives Verified 04/10/21 22:57 [From Bactrim] trimethoprim [From Bactrim] AdvReac Intermediate Hives Verified 04/10/21 22:57 Home Meds Home Medications Medication Instructions Recorded Confirmed glipizide 5 mg tablet 2.5 mg PO BIDM 04/10/21 04/10/21 metformin 500 mg tablet See Rx Instructions .ROUTE .COMPLEX 04/10/21 04/10/21 Previous Rx's Medication Instructions Recorded letrozole 2.5 mg tablet (Femara) 2.5 mg PO DAILY #30 tab 06/17/19 omeprazole 20 mg capsule,delayed 20 mg PO DAILY #90 cap 04/24/20 release losartan 100 mg tablet 100 mg PO DAILY #90 tab 06/22/20 methenamine hippurate 1 gram tablet 1 g PO DAILY #90 tab 10/09/20 amlodipine 10 mg tablet 10 mg PO DAILY #30 tab 11/21/20 citalopram 40 mg tablet 40 mg PO DAILY #90 tab 12/26/20 aspirin 81 mg tablet,delayed 81 mg PO QAM #30 tab 01/23/21 release meclizine 12.5 mg tablet 12.5 mg PO Q6H PRN #30 tab 01/25/21 blood sugar diagnostic #100 ea 02/06/21 alprazolam 0.25 mg tablet 0.25 mg PO DAILY PRN #30 tab 02/19/21 levothyroxine 150 mcg tablet 150 mcg PO DAILY #90 tab 02/19/21 levothyroxine 25 mcg tablet 25 mcg PO 2XWK #20 tab 02/19/21 simvastatin 20 mg tablet 20 mg PO HS #90 tab 03/27/21 celecoxib 100 mg capsule 100 mg PO DAILY #30 cap 04/03/21 Results & Data (ED) Vital Signs Vital Signs - 24 hr 04/10/21 21:30 04/10/21 21:38 04/10/21 22:00 Temperature 37.0 C Temperature Source Oral Pulse Rate 87 84 83 Pulse Rate from SpO2 Sensor 87 85 Pulse Rhythm Regular Pulse Strength Normal Respiratory Rate 28 H 24 30 H Blood Pressure 151/75 H 151/75 H 134/68 Blood Pressure Mean 100 100 90 Blood Pressure Position Sitting Pulse Oximetry 94 87 L 95 Oxygen Delivery Method Nasal Cannula Room Air Nasal Cannula Oxygen Flow Rate 2 2 2 Sepsis Recent Fever Within 48 Hours Yes Sepsis New/Unexplained Change in Mental Status No Sepsis Action Taken by Nursing No Action Required Oxygen Flow Rate - Titration 2 Pulse Oximetry Post Tiitration 94 04/10/21 22:30 04/10/21 23:00 04/10/21 23:30 Temperature Temperature Source Pulse Rate 89 95 H 87 Pulse Rate from SpO2 Sensor 87 86 87 Pulse Rhythm Pulse Strength Respiratory Rate 22 24 28 H Blood Pressure 141/97 H 150/75 H 141/72 H Blood Pressure Mean 111 100 95 Blood Pressure Position Pulse Oximetry 91 94 92 Oxygen Delivery Method Nasal Cannula Oxygen Flow Rate 2 Sepsis Recent Fever Within 48 Hours Sepsis New/Unexplained Change in Mental Status Sepsis Action Taken by Nursing Oxygen Flow Rate - Titration Pulse Oximetry Post Tiitration Laboratory Data Result diagrams: 04/10/21 21:35 04/10/21 21:35 Lab Results 04/10/21 04/10/21 04/10/21 Range/Units 21:35 21:35 21:35 WBC 5.52 (4.8-10.8) K/uL RBC 4.14 L (4.2-5.4) M/uL Hgb 13.0 (12.0-16.0) g/dL Hct 40.0 (37-47) % MCV 96.6 (80-100) fL MCH 31.4 (25-34) pg MCHC 32.5 (32-36) g/dL RDW Std Deviation 46.1 (36.4-46.3) fL RDW Coeff of Aashish 13.0 (11.5-14.5) % Plt Count 158 (130-400) K/uL MPV 10.5 H (7.4-10.4) fL Immature Gran % (Auto) 0.2 % Neut % (Auto) 78.7 % Lymph % (Auto) 12.0 % [place] % (Auto) 8.9 % Eos % (Auto) 0.0 % Baso % (Auto) 0.2 % Neut # (Auto) 4.35 (1.4-6.5) K/uL Lymph # (Auto) 0.66 L (1.2-3.4) K/uL [place] # (Auto) 0.49 (0.11-0.59) K/uL Eos # (Auto) 0.00 (0-0.5) K/uL Baso # (Auto) 0.01 (0-0.2) K/uL Immature Gran # (Auto) 0.01 (0.00-0.02) K/uL PT 10.0 (9.0-12.0) Seconds INR 1.0 (0.9-1.1) APTT 29.5 (21.0-31.0) Seconds PTT Ratio 1.1 Sodium 138 (136-145) mmol/L Potassium 4.4 (3.5-5.1) mmol/L Chloride 108 H (98-107) mmol/L Carbon Dioxide 23 (21-32) mmol/L Anion Gap 8.0 (3-11) BUN 19 H (7-18) mg/dl Creatinine 1.08 (0.6-1.2) mg/dl Est Cr Clr Drug Dosing 48.6 ml/min Est GFR ( Amer) 56.1 ml/min Est GFR (Non-Af Amer) 48.4 ml/min BUN/Creatinine Ratio 17.6 (10-20) Glucose 98 (70-99) mg/dl Calcium 8.5 (8.5-10.1) mg/dl Magnesium 1.8 (1.8-2.4) mg/dl Total Bilirubin 0.3 (0.2-1) mg/dl AST 34 (15-37) U/L ALT 29 (12-78) U/L Alkaline Phosphatase 55 (45-117) U/L Troponin I < 0.015 (0-0.045) ng/ml Total Protein 7.5 (6.4-8.2) gm/dl Albumin 3.1 L (3.4-5.0) gm/dl Globulin 4.4 H (2.5-4.0) gm/dl Albumin/Globulin Ratio 0.7 L (0.9-2) COVID-19 Eval Order SARS-CoV-2 (PCR) (Negative) 04/10/21 04/10/21 Range/Units 21:36 21:36 WBC (4.8-10.8) K/uL RBC (4.2-5.4) M/uL Hgb (12.0-16.0) g/dL Hct (37-47) % MCV (80-100) fL MCH (25-34) pg MCHC (32-36) g/dL RDW Std Deviation (36.4-46.3) fL RDW Coeff of Aashish (11.5-14.5) % Plt Count (130-400) K/uL MPV (7.4-10.4) fL Immature Gran % (Auto) % Neut % (Auto) % Lymph % (Auto) % [place] % (Auto) % Eos % (Auto) % Baso % (Auto) % Neut # (Auto) (1.4-6.5) K/uL Lymph # (Auto) (1.2-3.4) K/uL [place] # (Auto) (0.11-0.59) K/uL Eos # (Auto) (0-0.5) K/uL Baso # (Auto) (0-0.2) K/uL Immature Gran # (Auto) (0.00-0.02) K/uL PT (9.0-12.0) Seconds INR (0.9-1.1) APTT (21.0-31.0) Seconds PTT Ratio Sodium (136-145) mmol/L Potassium (3.5-5.1) mmol/L Chloride (98-107) mmol/L Carbon Dioxide (21-32) mmol/L Anion Gap (3-11) BUN (7-18) mg/dl Creatinine (0.6-1.2) mg/dl Est Cr Clr Drug Dosing ml/min Est GFR ( Amer) ml/min Est GFR (Non-Af Amer) ml/min BUN/Creatinine Ratio (10-20) Glucose (70-99) mg/dl Calcium (8.5-10.1) mg/dl Magnesium (1.8-2.4) mg/dl Total Bilirubin (0.2-1) mg/dl AST (15-37) U/L ALT (12-78) U/L Alkaline Phosphatase (45-117) U/L Troponin I (0-0.045) ng/ml Total Protein (6.4-8.2) gm/dl Albumin (3.4-5.0) gm/dl Globulin (2.5-4.0) gm/dl Albumin/Globulin Ratio (0.9-2) COVID-19 Eval Order Covid19 at [facility] SARS-CoV-2 (PCR) POSITIVE A* (Negative) Administered Medications Acetaminophen (Acetaminophen 325 Mg Tab) 650 mg PO Q4H PRN PRN Reason: Pain or Fever Stop: 05/11/21 01:28 Last Admin: 04/11/21 02:17 Dose: 650 mg Documented by: [id number] Enoxaparin Sodium (Enoxaparin Inj 60 Mg/0.6 Ml Syr) 45 mg SQ HS ABDELRAHMAN Stop: 05/11/21 00:44 Last Admin: 04/11/21 01:58 Dose: Not Given Documented by: [id number] Sodium Chloride (Sodium Chloride 0.9% 10ml Flush) 30 ml IV DAILY@2100 ABDELRAHMAN Stop: 04/14/21 21:01 Last Admin: 04/11/21 02:16 Dose: 30 ml Documented by: [id number] Discontinued Medications Dexamethasone Sodium Phosphate (DexamethasonePf 10 Mg/Ml Vial) 10 mg IV NOW ONE Stop: 04/10/21 22:17 Last Admin: 04/10/21 22:27 Dose: 10 mg Documented by: [id number] Sodium Chloride (Nss 1000ml) 1,000 mls @ 999 mls/hr IV .Q1H1M ONE Stop: 04/10/21 23:16 Last Infusion: 04/10/21 23:22 Dose: 0 mls/hr Documented by: [id number] Admin: 04/10/21 22:27 Dose: 999 mls/hr Documented by: [id number] Remdesivir 200 mg/ Sodium (Chloride) 250 mls @ 125 mls/hr IV ONE STA; Protocol Stop: 04/11/21 01:36 Last Infusion: 04/11/21 02:15 Dose: 0 mls/hr Documented by: [id number] Admin: 04/11/21 00:18 Dose: 125 mls/hr Documented by: [id number] Discharge Plan Visit Data Chief Complaint: Illness ED Provider: Edward Olmedo Discharge Problem: COVID-19, Hypoxia, Acute dehydration Patient Disposition: Admitted As Inpatient Discharge Instructions Interventions: ED Discharge Assessment Last Done: 04/11/21 01:03
[2021-04-10 22:27] LABS: Albumin Globulin Ratio 0.7 (0.9-2); Alkaline Phosphatase 55 U/L (45-117); Bilirubin,Total 0.3 mg/dl (0.2-1); Globulin 4.4 gm/dl (2.5-4.0); Total Protein 7.5 gm/dl (6.4-8.2); Troponin I < 0.015 ng/ml (0-0.045)
[2021-04-10] MEDS ORDERED: REMDESIVIR 200 MG in SODIUM CHLORIDE 0.9% 210 ML IV STA (23:37)
--- NOTE | 2021-04-10 23:38 | History & Physical Report ---
Date of Service April 10, 2021 Assessment & Plan (1) Pneumonia due to COVID-19 virus: Plan: Pneumonia due to COVID-19 virus/secondary bacterial pneumonia/hypoxia- Dexamethasone 6 mg IV every morning Remdesivir IV per protocol Azithromycin 500 mg IV daily Ceftriaxone 1 g IV daily Duonebs every 4 hours while awake and every 2 hours when necessary Guaifenesin extended release 1200 mg p.o. twice daily Vitamin D 1000 international units p.o. daily Zinc sulfate 220 mg p.o. daily Nasal cannula oxygen, titrate to keep pulse ox around 94% Lovenox 45 mg subcu daily (2) Hypoxia: Plan: See above (3) Secondary bacterial pneumonia: Plan: See above (4) Type 2 diabetes mellitus: Plan: Hold Metformin and glipizide Placed on Accu-Cheks before meals and at bedtime with NovoLog coverage per scale Check a hemoglobin A1c (5) Hyperlipidemia: Plan: Continue simvastatin 20 mg at bedtime (6) Depression with anxiety: Plan: Continue alprazolam, citalopram (7) Hypothyroidism: Plan: Continue levothyroxine (8) HTN (hypertension): Plan: Continue amlodipine, aspirin, and losartan (9) GERD (gastroesophageal reflux disease): Plan: Continue omeprazole/pantoprazole History of Present Illness Chief Complaint: The patient presents to the emergency department for symptoms worsening over the past 6 days including generalized weakness, fatigue, shortness of breath, dyspnea on exertion, fevers, chills, nausea, diarrhea and generalized malaise. Primary Care Provider: Beka Anaya MD The patient is an 80-year-old female with a past medical history including mitral vegetation, aortic stenosis, vertebral artery stenosis, BPPV, bladder prolapse, recurrent urinary tract infection, status post right mastectomy, diabetes mellitus, knee, depression with anxiety, hypothyroidism, right breast cancer and hypertension. She presents to the emergency department with symptoms as noted above. Pulse ox 87% on room air, improving to 91% on 2 L. Patient was COVID-19 positive in the ED, and given dexamethasone 10 mg IV by the ED. Allergies Allergy/AdvReac Type Severity Reaction Status Date / Time Sulfa (Sulfonamide Allergy Intermediate HIVES Verified 04/10/21 22:57 Antibiotics) sulfamethoxazole AdvReac Intermediate Hives Verified 04/10/21 22:57 [From Bactrim] trimethoprim [From Bactrim] AdvReac Intermediate Hives Verified 04/10/21 22:57 Home Medications Medication Instructions Recorded Confirmed Type letrozole 2.5 mg tablet (Femara) 2.5 mg PO DAILY #30 tab 06/17/19 04/10/21 Rx omeprazole 20 mg capsule,delayed 20 mg PO DAILY #90 cap 04/24/20 04/10/21 Rx release losartan 100 mg tablet 100 mg PO DAILY #90 tab 06/22/20 04/10/21 Rx methenamine hippurate 1 gram tablet 1 g PO DAILY #90 tab 10/09/20 04/10/21 Rx amlodipine 10 mg tablet 10 mg PO DAILY #30 tab 11/21/20 04/10/21 Rx citalopram 40 mg tablet 40 mg PO DAILY #90 tab 12/26/20 04/10/21 Rx aspirin 81 mg tablet,delayed 81 mg PO QAM #30 tab 01/23/21 04/10/21 Rx release meclizine 12.5 mg tablet 12.5 mg PO Q6H PRN #30 tab 01/25/21 04/10/21 Rx blood sugar diagnostic #100 ea 02/06/21 Rx alprazolam 0.25 mg tablet 0.25 mg PO DAILY PRN #30 tab 02/19/21 04/10/21 Rx levothyroxine 150 mcg tablet 150 mcg PO DAILY #90 tab 02/19/21 04/10/21 Rx levothyroxine 25 mcg tablet 25 mcg PO 2XWK #20 tab 02/19/21 04/10/21 Rx simvastatin 20 mg tablet 20 mg PO HS #90 tab 03/27/21 04/10/21 Rx celecoxib 100 mg capsule 100 mg PO DAILY #30 cap 04/03/21 04/10/21 Rx glipizide 5 mg tablet 2.5 mg PO BIDM 04/10/21 04/10/21 History metformin 500 mg tablet See Rx Instructions .ROUTE .COMPLEX 04/10/21 04/10/21 History Past Med/Surg History Medical History (Updated 04/11/21 @ 03:05 by Alvarez Razo MD) Aortic stenosis Depression with anxiety Fracture of right distal radius Hyperlipidemia Mitral regurgitation Type 2 diabetes mellitus Vertebral artery stenosis Surgical History H/O oral surgery History of back surgery S/P arthroscopy of right knee S/P breast lumpectomy S/P cataract surgery S/P hysterectomy S/P tonsillectomy Family History Father Stomach cancer Heart disease Hypertension Myocardial infarction Colon cancer Mother Heart disease Hypertension Diabetes Sister Hypertension Denies family history of Ovarian cancer Prostate cancer Breast cancer Social History Smoking Status: Never smoker Second Hand Exposure: No; Hx Alcohol Use: No Hx Substance Use: No Preferred Language: Mongolian Communication Ability: Effective Visual Impairment: No Limitations Hearing Ability: Normal 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: No Beliefs That Will Affect Care: None marital status: Current Living Situation: Spouse current occupational status: retired Feels Safe at Home: Yes Childhood Exposure to Second-Hand Smoke: No Dental Care, Regularly: Yes Physical Activity Frequency: Does not Exercise Seatbelt Use: always Sunscreen Use: Yes Assistive Devices: Glasses Review of Systems Review of Systems: The patient denies lower extremity swelling, sweats, nausea, vomiting, diarrhea , constipation, abdominal pain, pelvic pain, blood in urine or stool, dysuria, urinary frequency or urgency, memory loss, loss of consciousness, rash, abnormal bruising or bleeding, imbalance, focal weakness, numbness or tingling in arms or legs, back or neck pain, or night sweats. The review of systems is otherwise negative other than for that already noted above, and at least 10 systems have been reviewed. Results & Data Results & Data ([facility]) Vital Signs (Past 12 Hours) Vital Signs Temp Pulse Resp BP Pulse Ox 04/10/21 22:30 89 22 141/97 H 91 04/10/21 22:00 83 30 H 134/68 95 04/10/21 21:38 98.6 F 84 24 151/75 H 87 L 04/10/21 21:30 87 28 H 151/75 H 94 Laboratory Results Laboratory Results WBC 5.52 K/uL (4.8-10.8) 04/10/21 21:35 RBC 4.14 M/uL (4.2-5.4) L 04/10/21 21:35 Hgb 13.0 g/dL (12.0-16.0) 04/10/21 21: Hct 40.0 % (37-47) 04/10/21 21: MCV 96.6 fL (80-100) 04/10/21 21: MCH 31.4 pg (25-34) 04/10/21 21: MCHC 32.5 g/dL (32-36) 04/10/21 21: RDW Std Deviation 46.1 fL (36.4-46.3) 04/10/21 21: RDW Coeff of Aashish 13.0 % (11.5-14.5) 04/10/21 21: Plt Count 158 K/uL (130-400) 04/10/21 21: MPV 10.5 fL (7.4-10.4) H 04/10/21 21: Immature Gran % (Auto) 0.2 % 04/10/21 21: Neut % (Auto) 78.7 % 04/10/21 21: Lymph % (Auto) 12.0 % 04/10/21 21: [place] % (Auto) 8.9 % 04/10/21 21: Eos % (Auto) 0.0 % 04/10/21 21: Baso % (Auto) 0.2 % 04/10/21 21: Neut # (Auto) 4.35 K/uL (1.4-6.5) 04/10/21 21: Lymph # (Auto) 0.66 K/uL (1.2-3.4) L 04/10/21 21: [place] # (Auto) 0.49 K/uL (0.11-0.59) 04/10/21 21: Eos # (Auto) 0.00 K/uL (0-0.5) 04/10/21 21: Baso # (Auto) 0.01 K/uL (0-0.2) 04/10/21 21: Immature Gran # (Auto) 0.01 K/uL (0.00-0.02) 04/10/21 21: PT 10.0 Seconds (9.0-12.0) 04/10/21 21: INR 1.0 (0.9-1.1) 04/10/21 21: APTT 29.5 Seconds (21.0-31.0) 04/10/21 21:35 PTT Ratio 1.1 04/10/21 21:35 Sodium 138 mmol/L (136-145) 04/10/21 21:35 Potassium 4.4 mmol/L (3.5-5.1) 04/10/21 21:35 Chloride 108 mmol/L (98-107) H 04/10/21 21:35 Carbon Dioxide 23 mmol/L (21-32) 04/10/21 21:35 Anion Gap 8.0 (3-11) 04/10/21 21:35 BUN 19 mg/dl (7-18) H 04/10/21 21:35 Creatinine 1.08 mg/dl (0.6-1.2) 04/10/21 21:35 Est Cr Clr Drug Dosing 48.6 ml/min 04/10/21 21:35 Est GFR ( Amer) 56.1 ml/min 04/10/21 21:35 Est GFR (Non-Af Amer) 48.4 ml/min 04/10/21 21:35 BUN/Creatinine Ratio 17.6 (10-20) 04/10/21 21:35 Glucose 98 mg/dl (70-99) 04/10/21 21:35 Calcium 8.5 mg/dl (8.5-10.1) 04/10/21 21:35 Magnesium 1.8 mg/dl (1.8-2.4) 04/10/21 21:35 Total Bilirubin 0.3 mg/dl (0.2-1) 04/10/21 21:35 AST 34 U/L (15-37) 04/10/21 21:35 ALT 29 U/L (12-78) 04/10/21 21:35 Alkaline Phosphatase 55 U/L (45-117) 04/10/21 21:35 Troponin I < 0.015 ng/ml (0-0.045) 04/10/21 21:35 Total Protein 7.5 gm/dl (6.4-8.2) 04/10/21 21:35 Albumin 3.1 gm/dl (3.4-5.0) L 04/10/21 21:35 Globulin 4.4 gm/dl (2.5-4.0) H 04/10/21 21:35 Albumin/Globulin Ratio 0.7 (0.9-2) L 04/10/21 21:35 COVID-19 Eval Order Covid19 at [facility] 04/10/21 21:36 SARS-CoV-2 (PCR) POSITIVE (Negative) A* 04/10/21 21:36 Code Status & VTE Plan Code Status Full code VTE Prophylaxis Plan VTE Prophylaxis will be ordered: Yes PG Care Time/CCT Total # of Minutes Spent Total Time Spent with Patient: Total time spent is greater than 50% in coordination of care (as documented) at patient's floor/unit and/or counseling patient: Coding Level of Care Code 93467 Initial Inpt Care Lvl 3 Diagnoses Pneumonia due to COVID-19 virus U07.1; J12.82 Hypoxia R09.02 Secondary bacterial pneumonia J15.9 Type 2 diabetes mellitus E11.9 Diabetes mellitus usp insulin use: without usp use Diabetes mellitus complication status: without complication Hyperlipidemia E78.5 Hyperlipidemia type: unspecified Depression with anxiety F41.8 Hypothyroidism E03.9 Hypothyroidism type: unspecified HTN (hypertension) I10 GERD (gastroesophageal reflux disease) K21.9 (1) Type 2 diabetes mellitus Diabetes mellitus usp insulin use: without intermediate card tender use Diabetes mellitus complication status: without complication Qualified Code(s): E11.9 - Type 2 diabetes mellitus without complications (2) Hyperlipidemia Hyperlipidemia type: unspecified Qualified Code(s): E78.5 - Hyperlipidemia, unspecified (3) Hypothyroidism Hypothyroidism type: unspecified Qualified Code(s): E03.9 - Hypothyroidism, unspecified
[2021-04-10] MEDS ORDERED: ENOXAPARIN 0.5 MG/KG SQ SCH (23:45)
[2021-04-11] MEDS ORDERED: ENOXAPARIN INJ 60 MG/0.6 ML SYR SQ SCH (00:45)
[2021-04-11] MEDS ORDERED: ONDANSETRON INJ 2 MG/ML 2 ML VIAL IV PRN (01:29)
[2021-04-11] MEDS ORDERED: DEXTROSE 50% 50 ML SYRINGE IV PRN (01:29)
[2021-04-11] MEDS ORDERED: CARBOHYDRATES FOR HYPOGLYCEMIA PO PRN (01:29)
[2021-04-11] MEDS ORDERED: GLUCAGON FOR INJ 1 MG VIAL SQ PRN (01:29)
[2021-04-11] MEDS ORDERED: GLUCOSE 40% GEL 15 GM TUBE PO PRN (01:29)
[2021-04-11] MEDS ORDERED: GLUCOSE 10 TABS/TUBE PO PRN (01:29)
[2021-04-11] MEDS: SODIUM CHLORIDE 0.9% 10ML FLUSH IV SCH ×2 (02:16→21:40)
[2021-04-11] MEDS: ACETAMINOPHEN 325 MG TAB PO PRN (02:17)
[2021-04-11] MEDS: LEVOTHYROXINE SODIUM 150 MCG TABLET PO SCH (04:32)
[2021-04-11] MEDS ORDERED: ALBUT/IPRATROP 3MG/0.5MG NEB 3 ML VIAL NEB SCH (07:00)
--- NOTE | 2021-04-11 07:36 | XRay Report ---
XR chest 1V portable CLINICAL HISTORY: SOB COMPARISON STUDY: 06/01/2017. FINDINGS: No pneumothorax. No pleural effusion. Multifocal patchy reticular and airspace opacities are seen bilaterally, mostly involve bilateral low er lungs as well as left midlung. Focal nodules are seen at the left upper lung region, new since chaz or study. Cardiomediastinal silhouette is within upper limits of normal. Aorta is calcified. No significant pulmonary vascular congestion.. Osseous structures: Osteopenia. Degenerative changes of the spine and bilateral shoulders. IMPRESSION: 1. Interval development of bilateral multifocal opacities could represent atypical pneumonia/Covid. 2. Few nodular opacities at the left upper lung could represent inflammatory process or neoplastic e tiology. Follow-up evaluation with CT of the chest on nonemergency basis is recommended. ACT 112: Positive. There are findings on this exam that require communication between the performing entity and the patient following Patient Test Result Information Act ([place] Act 112) guidelines. The above report was generated using voice recognition software. It may contain grammatical, syntax o r spelling errors. Electronically signed by: Kendra Ram DO 04/11/2021 7:34 AM
[2021-04-11] MEDS ORDERED: ALBUT/IPRATROP 3MG/0.5MG NEB 3 ML VIAL NEB PRN (07:37)
[2021-04-11] MEDS: amLODIPine BESYLATE 5 MG TAB PO SCH (08:18)
[2021-04-11] MEDS: LOSARTAN POTASSIUM 50 MG TAB PO SCH (08:19)
[2021-04-11] MEDS: MECLIZINE 12.5 MG TAB PO PRN (08:19)
[2021-04-11] MEDS: guaiFENesin 600 MG TABCR PO SCH ×2 (08:19→21:36)
[2021-04-11] MEDS: CELECOXIB 100 MG CAP PO SCH (08:19)
[2021-04-11] MEDS: PANTOprazole 40 MG TAB PO SCH (08:19)
[2021-04-11] MEDS: ZINC SULFATE 220 MG CAPSULE PO SCH (08:19)
[2021-04-11] MEDS: ASPIRIN 81 MG ECTAB PO SCH (08:19)
[2021-04-11] MEDS: CITALOPRAM 40 MG TAB PO SCH (08:20)
[2021-04-11] MEDS: CHOLECALCIFEROL 1,000 UNITS 25 MCG TAB PO SCH (08:20)
[2021-04-11 08:31] LABS: Basophils # (auto) 0.01 K/uL (0-0.2); Basophils % (auto) 0.2 %; Hemoglobin 13.6 g/dL (12.0-16.0); Immature Granulocytes # (auto) 0.01 K/uL (0.00-0.02); Immature Granulocytes % (auto) 0.2 %; Lymphocytes # (auto) 1.06 K/uL (1.2-3.4); Lymphocytes % (auto) 16.2 %; Mean Corpuscular Hgb Conc 33.2 g/dL (32-36); Mean Corpuscular Volume 96.5 fL (80-100); Mean Platelet Volume 10.2 fL (7.4-10.4); Monocytes # (auto) 0.28 K/uL (0.11-0.59); Monocytes % (auto) 4.3 %; Neutrophils # (auto) 5.17 K/uL (1.4-6.5); Neutrophils % (auto) 79.1 %; Platelet Count 181 K/uL (130-400); RDW Coefficient of Variation 13.3 % (11.5-14.5); RDW Standard Deviation 46.9 fL (36.4-46.3); Red Blood Count 4.25 M/uL (4.2-5.4); White Blood Count 6.53 K/uL (4.8-10.8)
[2021-04-11 08:46] LABS: Estimated Average Glucose 151 mg/dl; Hemoglobin A1C 6.9 % (4.5-5.6)
[2021-04-11 08:47] LABS: Albumin Level 3.1 gm/dl (3.4-5.0); BUN Creatinine Ratio 18.6 (10-20); Creatinine Clr Calc Pharmacy 46.1 ml/min; Est GFR (African American) 54.9 ml/min; Est GFR (Non-African American) 47.4 ml/min; Magnesium 2.2 mg/dl (1.8-2.4); Potassium 4.4 mmol/L (3.5-5.1)
[2021-04-11 08:50] LABS: Albumin Globulin Ratio 0.7 (0.9-2); Bilirubin,Total 0.2 mg/dl (0.2-1); Globulin 4.7 gm/dl (2.5-4.0); Total Protein 7.8 gm/dl (6.4-8.2)
[2021-04-11] MEDS: cefTRIAXone SODIUM 2,000 MG in DEXTROSE 5% 50 ML IV SCH (09:13)
[2021-04-11] MEDS: dexAMETHasone 6 MG in SYRINGE 0 ML IV SCH (09:13)
[2021-04-11] MEDS: INSULIN ASPART 100 UNITS/ML 3 ML PEN SC SCH ×4 (09:13→21:00)
[2021-04-11] MEDS: AZITHROMYCIN 500 MG in DEXTROSE 5% 250 ML IV SCH (09:15)
--- NOTE | 2021-04-11 10:36 | Hospitalist Progress Note ---
Date of Service April 11, 2021 Assessment & Plan (1) Pneumonia due to COVID-19 virus: Plan: Pneumonia due to COVID-19 virus/possible secondary bacterial pneumonia/hypoxia patient vaccinated with Pfizer July 2020 stable on 4L this morning, try to titrate as tolerated Dexamethasone 6 mg IV daily, day 2 today Remdesivir IV per protocol Azithromycin 500 mg IV daily x 5 days Ceftriaxone 1 g IV daily x 5 days Duonebs PRN only, no wheezing Guaifenesin extended release 600 mg p.o. twice daily Vitamin D 1000 international units p.o. daily Zinc sulfate 220 mg p.o. daily Lovenox 45 mg subcu daily (2) Hypoxia: Plan: no distress or accessory muscles stable on 4L today (3) Secondary bacterial pneumonia: Plan: See above 5 days of Rocephin/Zithromax (4) Type 2 diabetes mellitus: Plan: Hold Metformin and glipizide Placed on Accu-Cheks before meals and at bedtime with NovoLog coverage per scale monitor for hypoglycemia, no episodes (5) Hyperlipidemia: Plan: Continue simvastatin 20 mg at bedtime (6) Depression with anxiety: Plan: Continue alprazolam, citalopram (7) Hypothyroidism: Plan: Continue levothyroxine (8) HTN (hypertension): Plan: Continue amlodipine, aspirin, and losartan (9) GERD (gastroesophageal reflux disease): Plan: Continue omeprazole/pantoprazole Admission and Anticipated Discharge Date Admission Date: April 10, 2021 Subjective patient doing well this morning, laying in bed supine, no distress per the RN, she can walk to the bathroom independently she got the Pfizer vaccine in August 2020, she is frustrated that she is here in the hospital I assured her that she should do well, the vaccine prevents severe infections no cough, no fever, no chest pain, ate half her breakfast this morning discussed things she can focus on such as eating well, getting OOB, laying prone hope to get her out in less than 7 days Review of Systems Review of Systems: All systems reviewed & are unremarkable except as noted in Subjective Physical Exam Physical Exam: General: well developed, obese, well nourished, no acute distress, comfortable Neck: supple, trachea midline, normal thyroid Lungs: clear to auscultation bilaterally, normal respiratory effort, no accessory muscle use, no distress Heart: regular S1 and S2, no murmur, peripheral pulses normal, capillary refill normal, no edema Abdomen: soft, NT, ND, + BS, no hepatomegaly, normal to percussion Extremities: normal in appearance, no cyanosis, no petechiae, strength is 5/5 bilaterally Neuro: awake, cooperative, moves all extremities, no focal motor deficits, CN II-XII intact, sensation in extremities intact, normal speech Skin: warm, dry, no rash, normal turgor Psych: Awake, alert oriented x 3, euthymic affect Results & Data Results & Data ([facility]) Vital Signs (Past 12 Hours) Vital Signs Temp Pulse Pulse Resp BP BP Pulse Ox 04/11/21 08:09 37.1 C 74 18 123/70 94 04/11/21 07:23 72 16 96 04/11/21 05:30 61 04/11/21 05:02 36.9 C 61 20 136/68 92 04/11/21 02:56 37.2 C 04/11/21 01:35 37.9 C H 78 22 139/65 91 04/11/21 01:03 85 20 161/77 H 89 L 04/11/21 00:30 84 29 H 146/64 H 92 04/11/21 00:00 85 28 H 138/65 92 04/10/21 23:30 87 28 H 141/72 H 92 04/10/21 23:00 95 H 24 150/75 H 94 Laboratory Results Laboratory Results - last 24 hr 04/10/21 04/10/21 04/10/21 21:35 21:35 21:35 WBC 5.52 RBC 4.14 L Hgb 13.0 Hct 40.0 MCV 96.6 MCH 31.4 MCHC 32.5 RDW Std Deviation 46.1 RDW Coeff of Aashish 13.0 Plt Count 158 MPV 10.5 H Immature Gran % (Auto) 0.2 Neut % (Auto) 78.7 Lymph % (Auto) 12.0 [place] % (Auto) 8.9 Eos % (Auto) 0.0 Baso % (Auto) 0.2 Neut # (Auto) 4.35 Lymph # (Auto) 0.66 L [place] # (Auto) 0.49 Eos # (Auto) 0.00 Baso # (Auto) 0.01 Immature Gran # (Auto) 0.01 PT 10.0 INR 1.0 APTT 29.5 PTT Ratio 1.1 Sodium 138 Potassium 4.4 Chloride 108 H Carbon Dioxide 23 Anion Gap 8.0 BUN 19 H Creatinine 1.08 Est Cr Clr Drug Dosing 48.6 Est GFR ( Amer) 56.1 Est GFR (Non-Af Amer) 48.4 BUN/Creatinine Ratio 17.6 Glucose 98 POC Glucose Estimat Average Glucose Hemoglobin A1c Calcium 8.5 Magnesium 1.8 Total Bilirubin 0.3 AST 34 ALT 29 Alkaline Phosphatase 55 Troponin I < 0.015 Total Protein 7.5 Albumin 3.1 L Globulin 4.4 H Albumin/Globulin Ratio 0.7 L COVID-19 Eval Order SARS-CoV-2 (PCR) 04/10/21 04/10/21 04/11/21 21:36 21:36 04:25 WBC RBC Hgb Hct MCV MCH MCHC RDW Std Deviation RDW Coeff of Aashish Plt Count MPV Immature Gran % (Auto) Neut % (Auto) Lymph % (Auto) [place] % (Auto) Eos % (Auto) Baso % (Auto) Neut # (Auto) Lymph # (Auto) [place] # (Auto) Eos # (Auto) Baso # (Auto) Immature Gran # (Auto) PT INR APTT PTT Ratio Sodium Potassium Chloride Carbon Dioxide Anion Gap BUN Creatinine Est Cr Clr Drug Dosing Est GFR ( Amer) Est GFR (Non-Af Amer) BUN/Creatinine Ratio Glucose POC Glucose 196 H Estimat Average Glucose Hemoglobin A1c Calcium Magnesium Total Bilirubin AST ALT Alkaline Phosphatase Troponin I Total Protein Albumin Globulin Albumin/Globulin Ratio COVID-19 Eval Order Covid19 at [facility] SARS-CoV-2 (PCR) POSITIVE A* 04/11/21 04/11/21 04/11/21 07:23 08:00 08:00 WBC 6.53 RBC 4.25 Hgb 13.6 Hct 41.0 MCV 96.5 MCH 32.0 MCHC 33.2 RDW Std Deviation 46.9 H RDW Coeff of Aashish 13.3 Plt Count 181 MPV 10.2 Immature Gran % (Auto) 0.2 Neut % (Auto) 79.1 Lymph % (Auto) 16.2 [place] % (Auto) 4.3 Eos % (Auto) 0.0 Baso % (Auto) 0.2 Neut # (Auto) 5.17 Lymph # (Auto) 1.06 L [place] # (Auto) 0.28 Eos # (Auto) 0.00 Baso # (Auto) 0.01 Immature Gran # (Auto) 0.01 PT INR APTT PTT Ratio Sodium 138 Potassium 4.4 Chloride 109 H Carbon Dioxide 20 L Anion Gap 9.0 BUN 21 H Creatinine 1.10 Est Cr Clr Drug Dosing 46.1 Est GFR ( Amer) 54.9 Est GFR (Non-Af Amer) 47.4 BUN/Creatinine Ratio 18.6 Glucose 201 H POC Glucose 191 H Estimat Average Glucose Hemoglobin A1c Calcium 9.0 Magnesium 2.2 Total Bilirubin 0.2 AST 31 ALT 28 Alkaline Phosphatase 55 Troponin I Total Protein 7.8 Albumin 3.1 L Globulin 4.7 H Albumin/Globulin Ratio 0.7 L COVID-19 Eval Order SARS-CoV-2 (PCR) 04/11/21 08:00 WBC RBC Hgb Hct MCV MCH MCHC RDW Std Deviation RDW Coeff of Aashish Plt Count MPV Immature Gran % (Auto) Neut % (Auto) Lymph % (Auto) [place] % (Auto) Eos % (Auto) Baso % (Auto) Neut # (Auto) Lymph # (Auto) [place] # (Auto) Eos # (Auto) Baso # (Auto) Immature Gran # (Auto) PT INR APTT PTT Ratio Sodium Potassium Chloride Carbon Dioxide Anion Gap BUN Creatinine Est Cr Clr Drug Dosing Est GFR ( Amer) Est GFR (Non-Af Amer) BUN/Creatinine Ratio Glucose POC Glucose Estimat Average Glucose 151 Hemoglobin A1c 6.9 H Calcium Magnesium Total Bilirubin AST ALT Alkaline Phosphatase Troponin I Total Protein Albumin Globulin Albumin/Globulin Ratio COVID-19 Eval Order SARS-CoV-2 (PCR) Medications Administered Current Inpatient Medications Acetaminophen (Acetaminophen 325 Mg Tab) 650 mg PO Q4H PRN PRN Reason: Pain or Fever Stop: 05/11/21 01:28 Last Admin: 04/11/21 02:17 Dose: 650 mg Documented by: Albuterol (Albut/Ipratrop 3mg/0.5mg Neb 3 Ml Vial) 3 ml NEB QIDR PRN PRN Reason: Wheezing Stop: 05/11/21 06:59 Alprazolam (Alprazolam 0.25 Mg Tablet) 0.25 mg PO DAILY PRN PRN Reason: anxiety Stop: 05/11/21 01:28 Amlodipine Besylate (Amlodipine Besylate 5 Mg Tab) 10 mg PO DAILY [facility] Stop: 05/11/21 08:59 Last Admin: 04/11/21 08:18 Dose: 10 mg Documented by: Aspirin (Aspirin 81 Mg Ectab) 81 mg PO QAM [facility] Stop: 05/11/21 08:59 Last Admin: 04/11/21 08:19 Dose: 81 mg Documented by: Celecoxib (Celecoxib 100 Mg Cap) 100 mg PO DAILY [facility] Stop: 05/11/21 08:59 Last Admin: 04/11/21 08:19 Dose: 100 mg Documented by: Citalopram Hydrobromide (Citalopram 40 Mg Tab) 40 mg PO DAILY [facility] Stop: 05/11/21 08:59 Last Admin: 04/11/21 08:20 Dose: 40 mg Documented by: Dextrose (Dextrose 50% 50 Ml Syringe) 25 - 50 ml IV UD PRN; Protocol PRN Reason: Hypoglycemia Protocol Stop: 05/11/21 01:28 Enoxaparin Sodium (Enoxaparin Inj 60 Mg/0.6 Ml Syr) 45 mg SQ HS [facility] Stop: 05/11/21 00:44 Last Admin: 04/11/21 01:58 Dose: Not Given Documented by: Glucagon (Glucagon For Inj 1 Mg Vial) 1 mg SQ UD PRN; Protocol PRN Reason: Hypoglycemia Protocol Stop: 05/11/21 01:28 Glucose (Glucose 10 Tabs/Tube) 4 - 8 tabs PO UD PRN; Protocol PRN Reason: Hypoglycemia Protocol Stop: 05/11/21 01:28 Glucose (Glucose 40% Gel 15 Gm Tube) 15 - 30 gm PO UD PRN; Protocol PRN Reason: Hypoglycemia Protocol Stop: 05/11/21 01:28 Guaifenesin (Guaifenesin 600 Mg Tabcr) 1,200 mg PO Q12 [facility] Stop: 05/11/21 08:59 Last Admin: 04/11/21 08:19 Dose: 1,200 mg Documented by: Dexamethasone 6 mg/ Syringe 1.5 mls @ 1 mls/min IV DAILY [facility] Stop: 05/11/21 08:59 Last Admin: 04/11/21 09:13 Dose: 1 mls/min Documented by: Remdesivir 100 mg/ Sodium (Chloride) 250 mls @ 250 mls/hr IV Q24H [facility]; Protocol Stop: 04/14/21 20:59 Ceftriaxone Sodium 2,000 mg/ (Dextrose) 70 mls @ 100 mls/hr IV DAILY [facility]; Protocol Stop: 04/18/21 08:59 Last Infusion: 04/11/21 10:06 Dose: Infused Documented by: Azithromycin 500 mg/ Dextrose 255 mls @ 125 mls/hr IV DAILY [facility]; Protocol Stop: 04/18/21 08:59 Last Admin: 04/11/21 09:15 Dose: 125 mls/hr Documented by: Insulin Aspart (Insulin Aspart 100 Units/Ml 3 Ml Pen) 0 units SC ACHS [facility] Stop: 05/11/21 07:29 Last Admin: 04/11/21 09:13 Dose: 3 units Documented by: Levothyroxine Sodium (Levothyroxine Sodium 150 Mcg Tablet) 150 mcg PO DAILYBB [facility] Stop: 05/11/21 06:29 Last Admin: 04/11/21 04:32 Dose: 150 mcg Documented by: Losartan Potassium (Losartan Potassium 50 Mg Tab) 100 mg PO DAILY [facility] Stop: 05/11/21 08:59 Last Admin: 04/11/21 08:19 Dose: 100 mg Documented by: Meclizine HCl (Meclizine 12.5 Mg Tab) 12.5 mg PO Q6H PRN PRN Reason: dizziness Stop: 05/11/21 01:28 Last Admin: 04/11/21 08:19 Dose: 12.5 mg Documented by: Miscellaneous (Letrozole: Order Awaiting Action) 1 ea N/A QS [facility] Stop: 05/11/21 07:59 Last Admin: 04/11/21 08:15 Dose: Not Given Documented by: Miscellaneous (Carbohydrates For Hypoglycemia ) 15 - 30 gm PO UD PRN PRN Reason: Hypoglycemia Protocol Stop: 05/11/21 01:28 Ondansetron HCl (Ondansetron Inj 2 Mg/Ml 2 Ml Vial) 4 mg IV Q6H PRN PRN Reason: Nausea Stop: 05/11/21 01:28 Pantoprazole Sodium (Pantoprazole 40 Mg Tab) 40 mg PO DAILY [facility]; Protocol Stop: 05/11/21 08:59 Last Admin: 04/11/21 08:19 Dose: 40 mg Documented by: Simvastatin (Simvastatin 20 Mg Tab) 20 mg PO HS [facility] Stop: 05/11/21 20:59 Sodium Chloride (Sodium Chloride 0.9% 10ml Flush) 30 ml IV DAILY@2100 [facility] Stop: 04/14/21 21:01 Last Admin: 04/11/21 02:16 Dose: 30 ml Documented by: Vitamin D (Cholecalciferol 1,000 Units 25 Mcg Tab) 1,000 units PO QAM [facility] Stop: 05/11/21 08:59 Last Admin: 04/11/21 08:20 Dose: 1,000 units Documented by: Zinc Sulfate (Zinc Sulfate 220 Mg Capsule) 220 mg PO QAM [facility] Stop: 05/11/21 08:59 Last Admin: 04/11/21 08:19 Dose: 220 mg Documented by: PG Care Time/CCT Total # of Minutes Spent Total Time Spent with Patient: Total time spent is greater than 50% in coordination of care (as documented) at patient's floor/unit and/or counseling patient: Coding Level of Care Code 65950 Subseq Hosp Care Lvl 3 Diagnoses Pneumonia due to COVID-19 virus U07.1; J12.82 Hypoxia R09.02 Secondary bacterial pneumonia J15.9 Type 2 diabetes mellitus E11.9 Diabetes mellitus manager intermediate insulin use: without fci use Diabetes mellitus complication status: without complication Hyperlipidemia E78.5 Hyperlipidemia type: unspecified Depression with anxiety F41.8 Hypothyroidism E03.9 Hypothyroidism type: unspecified HTN (hypertension) I10 GERD (gastroesophageal reflux disease) K21.9 (1) Type 2 diabetes mellitus Diabetes mellitus manager intermediate insulin use: without fci use Diabetes mellitus complication status: without complication Qualified Code(s): E11.9 - Type 2 diabetes mellitus without complications (2) Hyperlipidemia Hyperlipidemia type: unspecified Qualified Code(s): E78.5 - Hyperlipidemia, unspecified (3) Hypothyroidism Hypothyroidism type: unspecified Qualified Code(s): E03.9 - Hypothyroidism, unspecified
[2021-04-11] MEDS: guaiFENesin/CODEINE 100MG/10MG 5ML UDC PO PRN (14:08)
[2021-04-11] MEDS: ALPRAZolam 0.25 MG TABLET PO PRN (14:08)
[2021-04-11] MEDS: BENZONATATE 100 MG CAPSULE PO SCH ×2 (14:08→21:36)
[2021-04-11] MEDS: REMDESIVIR 100 MG in SODIUM CHLORIDE 0.9% 230 ML IV SCH (20:24)
[2021-04-11] MEDS: ENOXAPARIN INJ 40 MG/0.4 ML SYR SQ SCH (21:36)
[2021-04-11] MEDS: SIMVASTATIN 20 MG TAB PO SCH (21:37)
--- NOTE | 2021-04-12 05:20 | Electrocardiogram Report ---
Test Reason : Blood Pressure : / mmHG Vent. Rate : 087 BPM Atrial Rate : 087 BPM P-R Int : 158 ms QRS Dur : 072 ms QT Int : 360 ms P-R-T Axes : 066 042 122 degrees QTc Int : 433 ms Normal sinus rhythm with sinus arrhythmia Nonspecific T wave abnormality Abnormal ECG When compared with ECG of 22-JAN-2021 10:33, Premature supraventricular complexes are no longer Present Confirmed by Errol Villarreal ([id number]) on 04/12/2021 5:20:29 AM Referred By: REFERRED SELF Confirmed By:Errol Villarreal
[2021-04-12] MEDS: LEVOTHYROXINE SODIUM 150 MCG TABLET PO SCH (06:07)
[2021-04-12] MEDS: INSULIN ASPART 100 UNITS/ML 3 ML PEN SC SCH ×4 (08:25→21:00)
[2021-04-12] MEDS: CELECOXIB 100 MG CAP PO SCH (08:31)
[2021-04-12] MEDS: guaiFENesin 600 MG TABCR PO SCH ×2 (08:31→20:11)
[2021-04-12] MEDS: BENZONATATE 100 MG CAPSULE PO SCH ×3 (08:31→20:11)
[2021-04-12] MEDS: dexAMETHasone 6 MG in SYRINGE 0 ML IV SCH (08:31)
[2021-04-12] MEDS: LOSARTAN POTASSIUM 50 MG TAB PO SCH (08:32)
[2021-04-12] MEDS: ASPIRIN 81 MG ECTAB PO SCH (08:32)
[2021-04-12] MEDS: ZINC SULFATE 220 MG CAPSULE PO SCH (08:32)
[2021-04-12] MEDS: CHOLECALCIFEROL 1,000 UNITS 25 MCG TAB PO SCH (08:33)
[2021-04-12] MEDS: guaiFENesin/CODEINE 100MG/10MG 5ML UDC PO PRN ×2 (08:33→15:10)
[2021-04-12] MEDS: CITALOPRAM 40 MG TAB PO SCH (08:33)
[2021-04-12] MEDS: amLODIPine BESYLATE 5 MG TAB PO SCH (08:33)
[2021-04-12] MEDS: PANTOprazole 40 MG TAB PO SCH (08:33)
[2021-04-12] MEDS: cefTRIAXone SODIUM 2,000 MG in DEXTROSE 5% 50 ML IV SCH (08:34)
[2021-04-12] MEDS: LETROZOLE 2.5 MG TAB PO SCH (08:42)
[2021-04-12 08:44] LABS: Basophils # (auto) 0.01 K/uL (0-0.2); Basophils % (auto) 0.1 %; Hematocrit (blood only) 39.8 % (37-47); Hemoglobin 13.2 g/dL (12.0-16.0); Immature Granulocytes # (auto) 0.02 K/uL (0.00-0.02); Immature Granulocytes % (auto) 0.3 %; Lymphocytes # (auto) 1.31 K/uL (1.2-3.4); Lymphocytes % (auto) 17.4 %; Mean Corpuscular Hemoglobin 31.1 pg (25-34); Mean Corpuscular Hgb Conc 33.2 g/dL (32-36); Mean Corpuscular Volume 93.6 fL (80-100); Mean Platelet Volume 10.6 fL (7.4-10.4); Monocytes # (auto) 0.66 K/uL (0.11-0.59); Monocytes % (auto) 8.8 %; Neutrophils # (auto) 5.53 K/uL (1.4-6.5); Neutrophils % (auto) 73.4 %; Platelet Count 221 K/uL (130-400); RDW Coefficient of Variation 13.2 % (11.5-14.5); RDW Standard Deviation 45.2 fL (36.4-46.3); Red Blood Count 4.25 M/uL (4.2-5.4); White Blood Count 7.53 K/uL (4.8-10.8)
[2021-04-12 09:07] LABS: BUN Creatinine Ratio 30.9 (10-20); Creatinine Clr Calc Pharmacy 50.7 ml/min; Est GFR (African American) 61.6 ml/min; Est GFR (Non-African American) 53.2 ml/min; Magnesium 2.3 mg/dl (1.8-2.4); Potassium 4.6 mmol/L (3.5-5.1)
[2021-04-12 09:14] LABS: Albumin Globulin Ratio 0.6 (0.9-2); Bilirubin,Total 0.2 mg/dl (0.2-1); Globulin 4.9 gm/dl (2.5-4.0); Total Protein 7.9 gm/dl (6.4-8.2)
[2021-04-12] MEDS: AZITHROMYCIN 500 MG in DEXTROSE 5% 250 ML IV SCH (09:54)
--- NOTE | 2021-04-12 11:07 | Hospitalist Progress Note ---
Date of Service April 12, 2021 Assessment & Plan (1) Pneumonia due to COVID-19 virus: Plan: Pneumonia due to COVID-19 virus/possible secondary bacterial pneumonia/hypoxia patient vaccinated with Pfizer July 2020 stable on 5L this morning, no distress at all, breathing is normal according to patient Dexamethasone 6 mg IV daily, day 3 today Remdesivir IV per protocol, day 3 Azithromycin 500 mg IV daily x 5 days Ceftriaxone 1 g IV daily x 5 days Duonebs PRN only, no wheezing Guaifenesin extended release 600 mg p.o. twice daily Vitamin D 1000 international units p.o. daily Zinc sulfate 220 mg p.o. daily Lovenox 45 mg subcu daily move to medical floor COVID unit (2) Hypoxia: Plan: no distress or accessory muscles stable on 5L today (3) Secondary bacterial pneumonia: Plan: See above 5 days of Rocephin/Zithromax (4) Type 2 diabetes mellitus: Plan: Hold Metformin and glipizide Placed on Accu-Cheks before meals and at bedtime with NovoLog coverage per scale monitor for hypoglycemia, no episodes (5) Hyperlipidemia: Plan: Continue simvastatin 20 mg at bedtime (6) Depression with anxiety: Plan: Continue alprazolam, citalopram (7) Hypothyroidism: Plan: Continue levothyroxine (8) HTN (hypertension): Plan: Continue amlodipine, aspirin, and losartan (9) GERD (gastroesophageal reflux disease): Plan: Continue omeprazole/pantoprazole Admission and Anticipated Discharge Date Admission Date: April 10, 2021 Subjective patient doing much better, sitting up in a chair this morning, walking around the room breathing feels the same, says "I am breathing just like I always do" cough without sputum production appetite is a little better today, ate [place] toast and drank her coffee labs are stable, no issues on monitor, will move to medical COVID unit Review of Systems Review of Systems: All systems reviewed & are unremarkable except as noted in Subjective Constitutional: no fever, no fatigue and no weakness Respiratory: + cough; no dyspnea and no dyspnea on exertion Cardiovascular: no chest pain and no edema Gastrointestinal: no abdominal pain, no nausea, no vomiting, no constipation and no diarrhea/loose stools Physical Exam Physical Exam: General: well developed, obese, well nourished, no acute distress, comfortable Neck: supple, trachea midline, normal thyroid Lungs: clear to auscultation bilaterally, normal respiratory effort, no accessory muscle use, no distress Heart: regular S1 and S2, no murmur, peripheral pulses normal, capillary refill normal, no edema Abdomen: soft, NT, ND, + BS, no hepatomegaly, normal to percussion Extremities: normal in appearance, no cyanosis, no petechiae, strength is 5/5 bilaterally Neuro: awake, cooperative, moves all extremities, no focal motor deficits, CN II-XII intact, sensation in extremities intact, normal speech Skin: warm, dry, no rash, normal turgor Psych: Awake, alert oriented x 3, euthymic affect Results & Data Results & Data ([facility]) Vital Signs (Past 12 Hours) Vital Signs Temp Pulse Resp BP Pulse Ox 04/12/21 07:38 36.4 C L 62 20 140/76 91 04/12/21 03:32 36.9 C 18 125/66 92 04/11/21 23:31 36.6 C 61 19 139/71 91 Laboratory Results Laboratory Results - last 24 hr 04/11/21 04/11/21 04/11/21 12:01 16:34 19:56 WBC RBC Hgb Hct MCV MCH MCHC RDW Std Deviation RDW Coeff of Aashish Plt Count MPV Immature Gran % (Auto) Neut % (Auto) Lymph % (Auto) [place] % (Auto) Eos % (Auto) Baso % (Auto) Neut # (Auto) Lymph # (Auto) [place] # (Auto) Eos # (Auto) Baso # (Auto) Immature Gran # (Auto) Sodium Potassium Chloride Carbon Dioxide Anion Gap BUN Creatinine Est Cr Clr Drug Dosing Est GFR ( Amer) Est GFR (Non-Af Amer) BUN/Creatinine Ratio Glucose POC Glucose 274 H 136 H 174 H Calcium Magnesium Total Bilirubin AST ALT Alkaline Phosphatase Total Protein Albumin Globulin Albumin/Globulin Ratio 04/12/21 04/12/21 04/12/21 07:35 08:08 08:08 WBC 7.53 RBC 4.25 Hgb 13.2 Hct 39.8 MCV 93.6 MCH 31.1 MCHC 33.2 RDW Std Deviation 45.2 RDW Coeff of Aashish 13.2 Plt Count 221 MPV 10.6 H Immature Gran % (Auto) 0.3 Neut % (Auto) 73.4 Lymph % (Auto) 17.4 [place] % (Auto) 8.8 Eos % (Auto) 0.0 Baso % (Auto) 0.1 Neut # (Auto) 5.53 Lymph # (Auto) 1.31 [place] # (Auto) 0.66 H Eos # (Auto) 0.00 Baso # (Auto) 0.01 Immature Gran # (Auto) 0.02 Sodium 140 Potassium 4.6 Chloride 110 H Carbon Dioxide 22 Anion Gap 8.0 BUN 31 H Creatinine 1.00 Est Cr Clr Drug Dosing 50.7 Est GFR ( Amer) 61.6 Est GFR (Non-Af Amer) 53.2 BUN/Creatinine Ratio 30.9 H Glucose 143 H POC Glucose 149 H Calcium 9.0 Magnesium 2.3 Total Bilirubin 0.2 AST 33 ALT 28 Alkaline Phosphatase 52 Total Protein 7.9 Albumin 3.0 L Globulin 4.9 H Albumin/Globulin Ratio 0.6 L Medications Administered Current Inpatient Medications Acetaminophen (Acetaminophen 325 Mg Tab) 650 mg PO Q4H PRN PRN Reason: Pain or Fever Stop: 05/11/21 01:28 Last Admin: 04/11/21 02:17 Dose: 650 mg Documented by: Albuterol (Albut/Ipratrop 3mg/0.5mg Neb 3 Ml Vial) 3 ml NEB QIDR PRN PRN Reason: Wheezing Stop: 05/11/21 06:59 Alprazolam (Alprazolam 0.25 Mg Tablet) 0.25 mg PO DAILY PRN PRN Reason: anxiety Stop: 05/11/21 01:28 Last Admin: 04/11/21 14:08 Dose: 0.25 mg Documented by: Amlodipine Besylate (Amlodipine Besylate 5 Mg Tab) 10 mg PO DAILY [facility] Stop: 05/11/21 08:59 Last Admin: 04/12/21 08:33 Dose: 10 mg Documented by: Aspirin (Aspirin 81 Mg Ectab) 81 mg PO QAM [facility] Stop: 05/11/21 08:59 Last Admin: 04/12/21 08:32 Dose: 81 mg Documented by: Benzonatate (Benzonatate 100 Mg Capsule) 100 mg PO TID [facility] Stop: 05/11/21 13:59 Last Admin: 04/12/21 08:31 Dose: 100 mg Documented by: Celecoxib (Celecoxib 100 Mg Cap) 100 mg PO DAILY [facility] Stop: 05/11/21 08:59 Last Admin: 04/12/21 08:31 Dose: 100 mg Documented by: Citalopram Hydrobromide (Citalopram 40 Mg Tab) 40 mg PO DAILY [facility] Stop: 05/11/21 08:59 Last Admin: 04/12/21 08:33 Dose: 40 mg Documented by: Dextrose (Dextrose 50% 50 Ml Syringe) 25 - 50 ml IV UD PRN; Protocol PRN Reason: Hypoglycemia Protocol Stop: 05/11/21 01:28 Enoxaparin Sodium (Enoxaparin Inj 40 Mg/0.4 Ml Syr) 40 mg SQ HS [facility] Stop: 05/11/21 20:59 Last Admin: 04/11/21 21:36 Dose: 40 mg Documented by: Glucagon (Glucagon For Inj 1 Mg Vial) 1 mg SQ UD PRN; Protocol PRN Reason: Hypoglycemia Protocol Stop: 05/11/21 01:28 Glucose (Glucose 10 Tabs/Tube) 4 - 8 tabs PO UD PRN; Protocol PRN Reason: Hypoglycemia Protocol Stop: 05/11/21 01:28 Glucose (Glucose 40% Gel 15 Gm Tube) 15 - 30 gm PO UD PRN; Protocol PRN Reason: Hypoglycemia Protocol Stop: 05/11/21 01:28 Guaifenesin (Guaifenesin 600 Mg Tabcr) 1,200 mg PO Q12 [facility] Stop: 05/11/21 08:59 Last Admin: 04/12/21 08:31 Dose: 1,200 mg Documented by: Guaifenesin/Codeine Phosphate (Guaifenesin/Codeine 100mg/10mg 5ml Udc) 5 ml PO Q6H PRN PRN Reason: Cough Stop: 05/11/21 13:38 Last Admin: 04/12/21 08:33 Dose: 5 ml Documented by: Dexamethasone 6 mg/ Syringe 1.5 mls @ 1 mls/min IV DAILY [facility] Stop: 05/11/21 08:59 Last Admin: 04/12/21 08:31 Dose: 1 mls/min Documented by: Remdesivir 100 mg/ Sodium (Chloride) 250 mls @ 250 mls/hr IV Q24H [facility]; Protocol Stop: 04/14/21 20:59 Last Infusion: 04/11/21 21:40 Dose: Infused Documented by: Ceftriaxone Sodium 2,000 mg/ (Dextrose) 70 mls @ 100 mls/hr IV DAILY [facility]; Protocol Stop: 04/18/21 08:59 Last Infusion: 04/12/21 09:55 Dose: Infused Documented by: Azithromycin 500 mg/ Dextrose 255 mls @ 125 mls/hr IV DAILY [facility]; Protocol Stop: 04/18/21 08:59 Last Admin: 04/12/21 09:54 Dose: 125 mls/hr Documented by: Insulin Aspart (Insulin Aspart 100 Units/Ml 3 Ml Pen) 0 units SC ACHS [facility] Stop: 05/11/21 07:29 Last Admin: 04/12/21 08:25 Dose: 4 units Documented by: Letrozole (Letrozole 2.5 Mg Tab) 2.5 mg PO DAILY [facility] Stop: 05/12/21 08:59 Last Admin: 04/12/21 08:42 Dose: 2.5 mg Documented by: Levothyroxine Sodium (Levothyroxine Sodium 150 Mcg Tablet) 150 mcg PO DAILYBB [facility] Stop: 05/11/21 06:29 Last Admin: 04/12/21 06:07 Dose: 150 mcg Documented by: Losartan Potassium (Losartan Potassium 50 Mg Tab) 100 mg PO DAILY [facility] Stop: 05/11/21 08:59 Last Admin: 04/12/21 08:32 Dose: 100 mg Documented by: Meclizine HCl (Meclizine 12.5 Mg Tab) 12.5 mg PO Q6H PRN PRN Reason: dizziness Stop: 05/11/21 01:28 Last Admin: 04/11/21 08:19 Dose: 12.5 mg Documented by: Miscellaneous (Carbohydrates For Hypoglycemia ) 15 - 30 gm PO UD PRN PRN Reason: Hypoglycemia Protocol Stop: 05/11/21 01:28 Ondansetron HCl (Ondansetron Inj 2 Mg/Ml 2 Ml Vial) 4 mg IV Q6H PRN PRN Reason: Nausea Stop: 05/11/21 01:28 Pantoprazole Sodium (Pantoprazole 40 Mg Tab) 40 mg PO DAILY [facility]; Protocol Stop: 05/11/21 08:59 Last Admin: 04/12/21 08:33 Dose: 40 mg Documented by: Simvastatin (Simvastatin 20 Mg Tab) 20 mg PO HS [facility] Stop: 05/11/21 20:59 Last Admin: 04/11/21 21:37 Dose: 20 mg Documented by: Sodium Chloride (Sodium Chloride 0.9% 10ml Flush) 30 ml IV DAILY@2100 [facility] Stop: 04/14/21 21:01 Last Admin: 04/11/21 21:40 Dose: 30 ml Documented by: Vitamin D (Cholecalciferol 1,000 Units 25 Mcg Tab) 1,000 units PO QAM [facility] Stop: 05/11/21 08:59 Last Admin: 04/12/21 08:33 Dose: 1,000 units Documented by: Zinc Sulfate (Zinc Sulfate 220 Mg Capsule) 220 mg PO QAM [facility] Stop: 05/11/21 08:59 Last Admin: 04/12/21 08:32 Dose: 220 mg Documented by: PG Care Time/CCT Total # of Minutes Spent Total Time Spent with Patient: Total time spent is greater than 50% in coordination of care (as documented) at patient's floor/unit and/or counseling patient: Coding Level of Care Code 83148 Subseq Hosp Care Lvl 2 Diagnoses Pneumonia due to COVID-19 virus U07.1; J12.82 Hypoxia R09.02 Secondary bacterial pneumonia J15.9 Type 2 diabetes mellitus E11.9 Diabetes mellitus assisted insulin use: without assisted use Diabetes mellitus complication status: without complication Hyperlipidemia E78.5 Hyperlipidemia type: unspecified Depression with anxiety F41.8 Hypothyroidism E03.9 Hypothyroidism type: unspecified HTN (hypertension) I10 GERD (gastroesophageal reflux disease) K21.9 (1) Type 2 diabetes mellitus Diabetes mellitus assisted insulin use: without assisted use Diabetes mellitus complication status: without complication Qualified Code(s): E11.9 - Type 2 diabetes mellitus without complications (2) Hyperlipidemia Hyperlipidemia type: unspecified Qualified Code(s): E78.5 - Hyperlipidemia, unspecified (3) Hypothyroidism Hypothyroidism type: unspecified Qualified Code(s): E03.9 - Hypothyroidism, unspecified
[2021-04-12] MEDS: ENOXAPARIN INJ 40 MG/0.4 ML SYR SQ SCH (20:11)
[2021-04-12] MEDS: ALPRAZolam 0.25 MG TABLET PO PRN ×2 (20:11→20:17)
[2021-04-12] MEDS: SIMVASTATIN 20 MG TAB PO SCH (20:11)
[2021-04-12] MEDS: SODIUM CHLORIDE 0.9% 10ML FLUSH IV SCH (20:12)
[2021-04-12] MEDS: REMDESIVIR 100 MG in SODIUM CHLORIDE 0.9% 230 ML IV SCH (20:12)
[2021-04-13] MEDS: LEVOTHYROXINE SODIUM 150 MCG TABLET PO SCH (06:10)
[2021-04-13 07:20] LABS: Basophils # (auto) 0.01 K/uL (0-0.2); Basophils % (auto) 0.2 %; Eosinophils # (auto) 0.01 K/uL (0-0.5); Eosinophils % (auto) 0.2 %; Hematocrit (blood only) 36.1 % (37-47); Hemoglobin 12.3 g/dL (12.0-16.0); Immature Granulocytes # (auto) 0.02 K/uL (0.00-0.02); Immature Granulocytes % (auto) 0.4 %; Lymphocytes % (auto) 17.8 %; Mean Corpuscular Hemoglobin 31.5 pg (25-34); Mean Corpuscular Hgb Conc 34.1 g/dL (32-36); Mean Corpuscular Volume 92.3 fL (80-100); Mean Platelet Volume 10.2 fL (7.4-10.4); Monocytes # (auto) 0.59 K/uL (0.11-0.59); Monocytes % (auto) 10.5 %; Neutrophils % (auto) 70.9 %; Platelet Count 208 K/uL (130-400); RDW Coefficient of Variation 13.3 % (11.5-14.5); RDW Standard Deviation 44.4 fL (36.4-46.3); Red Blood Count 3.91 M/uL (4.2-5.4); White Blood Count 5.63 K/uL (4.8-10.8)
[2021-04-13 07:50] LABS: Albumin Level 2.6 gm/dl (3.4-5.0); BUN Creatinine Ratio 35.9 (10-20); Calcium 8.7 mg/dl (8.5-10.1); Creatinine Clr Calc Pharmacy 50.2 ml/min; Est GFR (African American) 60.9 ml/min; Est GFR (Non-African American) 52.5 ml/min; Magnesium 2.1 mg/dl (1.8-2.4); Potassium 4.5 mmol/L (3.5-5.1)
[2021-04-13 07:53] LABS: Albumin Globulin Ratio 0.6 (0.9-2); Bilirubin,Total 0.3 mg/dl (0.2-1); Globulin 4.3 gm/dl (2.5-4.0); Total Protein 6.9 gm/dl (6.4-8.2)
[2021-04-13] MEDS: CELECOXIB 100 MG CAP PO SCH (08:30)
[2021-04-13] MEDS: ASPIRIN 81 MG ECTAB PO SCH (08:30)
[2021-04-13] MEDS: BENZONATATE 100 MG CAPSULE PO SCH ×3 (08:30→21:37)
[2021-04-13] MEDS: CHOLECALCIFEROL 1,000 UNITS 25 MCG TAB PO SCH (08:30)
[2021-04-13] MEDS: cefTRIAXone SODIUM 2,000 MG in DEXTROSE 5% 50 ML IV SCH (08:30)
[2021-04-13] MEDS: CITALOPRAM 40 MG TAB PO SCH (08:30)
[2021-04-13] MEDS: amLODIPine BESYLATE 5 MG TAB PO SCH (08:30)
[2021-04-13] MEDS: LETROZOLE 2.5 MG TAB PO SCH (08:31)
[2021-04-13] MEDS: dexAMETHasone 6 MG in SYRINGE 0 ML IV SCH (08:31)
[2021-04-13] MEDS: INSULIN ASPART 100 UNITS/ML 3 ML PEN SC SCH ×4 (08:31→22:00)
[2021-04-13] MEDS: PANTOprazole 40 MG TAB PO SCH (08:31)
[2021-04-13] MEDS: guaiFENesin 600 MG TABCR PO SCH ×2 (08:31→21:38)
[2021-04-13] MEDS: AZITHROMYCIN 500 MG in DEXTROSE 5% 250 ML IV SCH (10:04)
[2021-04-13] MEDS: ZINC SULFATE 220 MG CAPSULE PO SCH (10:05)
[2021-04-13] MEDS: LOSARTAN POTASSIUM 50 MG TAB PO SCH (12:00)
--- NOTE | 2021-04-13 12:22 | Hospitalist Progress Note ---
Date of Service April 13, 2021 Assessment & Plan (1) Pneumonia due to COVID-19 virus: Plan: Pneumonia due to COVID-19 virus/possible secondary bacterial pneumonia/hypoxia patient vaccinated with Pfizer July 2020 stable on 3L this morning, no distress at all, breathing is normal according to patient Lasix 20mg IV today Dexamethasone 6 mg IV daily, day 4 today Remdesivir IV per protocol, day 4 stop antibiotics, do not suspect bacterial infection at this point Duonebs PRN only, no wheezing Guaifenesin extended release 600 mg p.o. twice daily Vitamin D 1000 international units p.o. daily Zinc sulfate 220 mg p.o. daily Lovenox 45 mg subcu daily move to medical floor COVID unit (2) Hypoxia: Plan: no distress or accessory muscles down to 3L today (3) Secondary bacterial pneumonia: Plan: 4 days of antibiotics doubt bacterial infection at this point, stop antibiotics (4) Type 2 diabetes mellitus: Plan: Hold Metformin and glipizide Placed on Accu-Cheks before meals and at bedtime with NovoLog coverage per scale monitor for hypoglycemia, no episodes (5) Hyperlipidemia: Plan: Continue simvastatin 20 mg at bedtime (6) Depression with anxiety: Plan: Continue alprazolam, citalopram slightly tearful today, worried about her who is at [facility], recovering from hip fracturs, he has pneumonia/COVID told he is doing okay encouraged to stay strong, focus on her health so she can get better and help him (7) Hypothyroidism: Plan: Continue levothyroxine (8) HTN (hypertension): Plan: Continue amlodipine, aspirin, and losartan (9) GERD (gastroesophageal reflux disease): Plan: Continue omeprazole/pantoprazole Admission and Anticipated Discharge Date Admission Date: April 10, 2021 Subjective patient says she is feeling better, down to 3L eating fairly well, strength is good, no fever still with a cough but it is better labs today show stable CBC and CMP lungs with some faint crackles in bases, will give Lasix Review of Systems Review of Systems: All systems reviewed & are unremarkable except as noted in Subjective Respiratory: + cough and + dyspnea on exertion Physical Exam Physical Exam: General: well developed, obese, well nourished, no acute distress, comfortable Neck: supple, trachea midline, normal thyroid Lungs: crackles in bases bilaterally, normal respiratory effort, no accessory muscle use, no distress Heart: regular S1 and S2, no murmur, peripheral pulses normal, capillary refill normal, no edema Abdomen: soft, NT, ND, + BS, no hepatomegaly, normal to percussion Extremities: normal in appearance, no cyanosis, no petechiae, strength is 5/5 bilaterally Neuro: awake, cooperative, moves all extremities, no focal motor deficits, CN II-XII intact, sensation in extremities intact, normal speech Skin: warm, dry, no rash, normal turgor Psych: Awake, alert oriented x 3, euthymic affect Results & Data Results & Data ([facility]) Vital Signs (Past 12 Hours) Vital Signs Temp Pulse Pulse Resp BP Pulse Ox 04/13/21 11:12 36.7 C 61 19 137/60 96 04/13/21 08:00 54 L 04/13/21 07:00 36.5 C 59 L 21 143/72 H 90 04/13/21 03:31 36.8 C 60 18 137/78 94 Laboratory Results Laboratory Results - last 24 hr 04/12/21 04/12/21 04/13/21 16:47 20:03 07:02 WBC 5.63 RBC 3.91 L Hgb 12.3 Hct 36.1 L MCV 92.3 MCH 31.5 MCHC 34.1 RDW Std Deviation 44.4 RDW Coeff of Aashish 13.3 Plt Count 208 MPV 10.2 Immature Gran % (Auto) 0.4 Neut % (Auto) 70.9 Lymph % (Auto) 17.8 [place] % (Auto) 10.5 Eos % (Auto) 0.2 Baso % (Auto) 0.2 Neut # (Auto) 4.00 Lymph # (Auto) 1.00 L [place] # (Auto) 0.59 Eos # (Auto) 0.01 Baso # (Auto) 0.01 Immature Gran # (Auto) 0.02 Sodium Potassium Chloride Carbon Dioxide Anion Gap BUN Creatinine Est Cr Clr Drug Dosing Est GFR ( Amer) Est GFR (Non-Af Amer) BUN/Creatinine Ratio Glucose POC Glucose 171 H 206 H Calcium Magnesium Total Bilirubin AST ALT Alkaline Phosphatase Total Protein Albumin Globulin Albumin/Globulin Ratio 04/13/21 04/13/21 04/13/21 07:02 07:03 11:10 WBC RBC Hgb Hct MCV MCH MCHC RDW Std Deviation RDW Coeff of Aashish Plt Count MPV Immature Gran % (Auto) Neut % (Auto) Lymph % (Auto) [place] % (Auto) Eos % (Auto) Baso % (Auto) Neut # (Auto) Lymph # (Auto) [place] # (Auto) Eos # (Auto) Baso # (Auto) Immature Gran # (Auto) Sodium 138 Potassium 4.5 Chloride 111 H Carbon Dioxide 21 Anion Gap 6.0 BUN 36 H Creatinine 1.01 Est Cr Clr Drug Dosing 50.2 Est GFR ( Amer) 60.9 Est GFR (Non-Af Amer) 52.5 BUN/Creatinine Ratio 35.9 H Glucose 139 H POC Glucose 145 H 229 H Calcium 8.7 Magnesium 2.1 Total Bilirubin 0.3 AST 31 ALT 30 Alkaline Phosphatase 47 Total Protein 6.9 Albumin 2.6 L Globulin 4.3 H Albumin/Globulin Ratio 0.6 L Medications Administered Current Inpatient Medications Acetaminophen (Acetaminophen 325 Mg Tab) 650 mg PO Q4H PRN PRN Reason: Pain or Fever Stop: 05/11/21 01:28 Last Admin: 04/11/21 02:17 Dose: 650 mg Documented by: Albuterol (Albut/Ipratrop 3mg/0.5mg Neb 3 Ml Vial) 3 ml NEB QIDR PRN PRN Reason: Wheezing Stop: 05/11/21 06:59 Alprazolam (Alprazolam 0.25 Mg Tablet) 0.25 mg PO DAILY PRN PRN Reason: anxiety Stop: 05/11/21 01:28 Last Admin: 04/12/21 20:17 Dose: 0.25 mg Documented by: Amlodipine Besylate (Amlodipine Besylate 5 Mg Tab) 10 mg PO DAILY [facility] Stop: 05/11/21 08:59 Last Admin: 04/13/21 08:30 Dose: 10 mg Documented by: Aspirin (Aspirin 81 Mg Ectab) 81 mg PO QAM [facility] Stop: 05/11/21 08:59 Last Admin: 04/13/21 08:30 Dose: 81 mg Documented by: Benzonatate (Benzonatate 100 Mg Capsule) 100 mg PO TID [facility] Stop: 05/11/21 13:59 Last Admin: 04/13/21 08:30 Dose: 100 mg Documented by: Celecoxib (Celecoxib 100 Mg Cap) 100 mg PO DAILY [facility] Stop: 05/11/21 08:59 Last Admin: 04/13/21 08:30 Dose: 100 mg Documented by: Citalopram Hydrobromide (Citalopram 40 Mg Tab) 40 mg PO DAILY [facility] Stop: 05/11/21 08:59 Last Admin: 04/13/21 08:30 Dose: 40 mg Documented by: Dextrose (Dextrose 50% 50 Ml Syringe) 25 - 50 ml IV UD PRN; Protocol PRN Reason: Hypoglycemia Protocol Stop: 05/11/21 01:28 Enoxaparin Sodium (Enoxaparin Inj 40 Mg/0.4 Ml Syr) 40 mg SQ HS [facility] Stop: 05/11/21 20:59 Last Admin: 04/12/21 20:11 Dose: 40 mg Documented by: Glucagon (Glucagon For Inj 1 Mg Vial) 1 mg SQ UD PRN; Protocol PRN Reason: Hypoglycemia Protocol Stop: 05/11/21 01:28 Glucose (Glucose 10 Tabs/Tube) 4 - 8 tabs PO UD PRN; Protocol PRN Reason: Hypoglycemia Protocol Stop: 05/11/21 01:28 Glucose (Glucose 40% Gel 15 Gm Tube) 15 - 30 gm PO UD PRN; Protocol PRN Reason: Hypoglycemia Protocol Stop: 05/11/21 01:28 Guaifenesin (Guaifenesin 600 Mg Tabcr) 1,200 mg PO Q12 [facility] Stop: 05/11/21 08:59 Last Admin: 04/13/21 08:31 Dose: 1,200 mg Documented by: Guaifenesin/Codeine Phosphate (Guaifenesin/Codeine 100mg/10mg 5ml Udc) 5 ml PO Q6H PRN PRN Reason: Cough Stop: 05/11/21 13:38 Last Admin: 04/12/21 15:10 Dose: 5 ml Documented by: Dexamethasone 6 mg/ Syringe 1.5 mls @ 1 mls/min IV DAILY [facility] Stop: 05/11/21 08:59 Last Admin: 04/13/21 08:31 Dose: 1 mls/min Documented by: Remdesivir 100 mg/ Sodium (Chloride) 250 mls @ 250 mls/hr IV Q24H [facility]; Protocol Stop: 04/14/21 20:59 Last Infusion: 04/12/21 22:30 Dose: Infused Documented by: Ceftriaxone Sodium 2,000 mg/ (Dextrose) 70 mls @ 100 mls/hr IV DAILY [facility]; Protocol Stop: 04/18/21 08:59 Last Infusion: 04/13/21 10:30 Dose: Infused Documented by: Azithromycin 500 mg/ Dextrose 255 mls @ 125 mls/hr IV DAILY [facility]; Protocol Stop: 04/18/21 08:59 Last Admin: 04/13/21 10:04 Dose: 125 mls/hr Documented by: Insulin Aspart (Insulin Aspart 100 Units/Ml 3 Ml Pen) 0 units SC ACHS [facility] Stop: 05/11/21 07:29 Last Admin: 04/13/21 08:31 Dose: 5 units Documented by: Letrozole (Letrozole 2.5 Mg Tab) 2.5 mg PO DAILY [facility] Stop: 05/12/21 08:59 Last Admin: 04/13/21 08:31 Dose: 2.5 mg Documented by: Levothyroxine Sodium (Levothyroxine Sodium 150 Mcg Tablet) 150 mcg PO DAILYBB [facility] Stop: 05/11/21 06:29 Last Admin: 04/13/21 06:10 Dose: 150 mcg Documented by: Losartan Potassium (Losartan Potassium 50 Mg Tab) 100 mg PO DAILY [facility] Stop: 05/11/21 08:59 Last Admin: 04/13/21 12:00 Dose: 100 mg Documented by: Meclizine HCl (Meclizine 12.5 Mg Tab) 12.5 mg PO Q6H PRN PRN Reason: dizziness Stop: 05/11/21 01:28 Last Admin: 04/11/21 08:19 Dose: 12.5 mg Documented by: Miscellaneous (Carbohydrates For Hypoglycemia ) 15 - 30 gm PO UD PRN PRN Reason: Hypoglycemia Protocol Stop: 05/11/21 01:28 Ondansetron HCl (Ondansetron Inj 2 Mg/Ml 2 Ml Vial) 4 mg IV Q6H PRN PRN Reason: Nausea Stop: 05/11/21 01:28 Pantoprazole Sodium (Pantoprazole 40 Mg Tab) 40 mg PO DAILY [facility]; Protocol Stop: 05/11/21 08:59 Last Admin: 04/13/21 08:31 Dose: 40 mg Documented by: Simvastatin (Simvastatin 20 Mg Tab) 20 mg PO HS [facility] Stop: 05/11/21 20:59 Last Admin: 04/12/21 20:11 Dose: 20 mg Documented by: Sodium Chloride (Sodium Chloride 0.9% 10ml Flush) 30 ml IV DAILY@2100 [facility] Stop: 04/14/21 21:01 Last Admin: 04/12/21 20:12 Dose: 30 ml Documented by: Vitamin D (Cholecalciferol 1,000 Units 25 Mcg Tab) 1,000 units PO QAM [facility] Stop: 05/11/21 08:59 Last Admin: 04/13/21 08:30 Dose: 1,000 units Documented by: Zinc Sulfate (Zinc Sulfate 220 Mg Capsule) 220 mg PO QAM [facility] Stop: 05/11/21 08:59 Last Admin: 04/13/21 10:05 Dose: 220 mg Documented by: PG Care Time/CCT Total # of Minutes Spent Total Time Spent with Patient: Total time spent is greater than 50% in coordination of care (as documented) at patient's floor/unit and/or counseling patient: Coding Level of Care Code 02164 Subseq Hosp Care Lvl 3 Diagnoses Pneumonia due to COVID-19 virus U07.1; J12.82 Hypoxia R09.02 Secondary bacterial pneumonia J15.9 Type 2 diabetes mellitus E11.9 Diabetes mellitus skilled nursing insulin use: without skilled nursing use Diabetes mellitus complication status: without complication Hyperlipidemia E78.5 Hyperlipidemia type: unspecified Depression with anxiety F41.8 Hypothyroidism E03.9 Hypothyroidism type: unspecified HTN (hypertension) I10 GERD (gastroesophageal reflux disease) K21.9 (1) Type 2 diabetes mellitus Diabetes mellitus exterminator helper insulin use: without skilled nursing use Diabetes mellitus complication status: without complication Qualified Code(s): E11.9 - Type 2 diabetes mellitus without complications (2) Hyperlipidemia Hyperlipidemia type: unspecified Qualified Code(s): E78.5 - Hyperlipidemia, unspecified (3) Hypothyroidism Hypothyroidism type: unspecified Qualified Code(s): E03.9 - Hypothyroidism, unspecified
[2021-04-13] MEDS ORDERED: FUROSEMIDE 20 MG in SYRINGE 0 ML IV ONE (12:31)
[2021-04-13] MEDS ORDERED: FUROSEMIDE 40 MG/4 ML VIAL IV ONE (12:45)
[2021-04-13] MEDS: ALPRAZolam 0.25 MG TABLET PO PRN (12:49)
[2021-04-13] MEDS: REMDESIVIR 100 MG in SODIUM CHLORIDE 0.9% 230 ML IV SCH (20:20)
[2021-04-13] MEDS: ENOXAPARIN INJ 40 MG/0.4 ML SYR SQ SCH (21:36)
[2021-04-13] MEDS: MELATONIN 3 MG TAB PO PRN (21:38)
[2021-04-13] MEDS: DOCUSATE SODIUM 100 MG CAP PO PRN (21:38)
[2021-04-13] MEDS: SIMVASTATIN 20 MG TAB PO SCH (21:38)
[2021-04-13] MEDS: SODIUM CHLORIDE 0.9% 10ML FLUSH IV SCH (21:39)
[2021-04-14] MEDS: LEVOTHYROXINE SODIUM 150 MCG TABLET PO SCH (06:02)
[2021-04-14] MEDS ORDERED: FUROSEMIDE 20 MG in SYRINGE 0 ML IV ONE (08:00)
[2021-04-14] MEDS ORDERED: FUROSEMIDE 40 MG/4 ML VIAL IV ONE (08:00)
[2021-04-14] MEDS: cefTRIAXone SODIUM 2,000 MG in DEXTROSE 5% 50 ML IV SCH (08:21)
[2021-04-14] MEDS: dexAMETHasone 6 MG in SYRINGE 0 ML IV SCH (08:22)
[2021-04-14] MEDS: PANTOprazole 40 MG TAB PO SCH (08:24)
[2021-04-14] MEDS: ZINC SULFATE 220 MG CAPSULE PO SCH (08:24)
[2021-04-14] MEDS: LOSARTAN POTASSIUM 50 MG TAB PO SCH (08:24)
[2021-04-14] MEDS: guaiFENesin 600 MG TABCR PO SCH ×2 (08:25→20:41)
[2021-04-14] MEDS: BENZONATATE 100 MG CAPSULE PO SCH ×3 (08:25→20:41)
[2021-04-14] MEDS: CITALOPRAM 40 MG TAB PO SCH (08:25)
[2021-04-14] MEDS: ASPIRIN 81 MG ECTAB PO SCH (08:26)
[2021-04-14] MEDS: amLODIPine BESYLATE 5 MG TAB PO SCH (08:26)
[2021-04-14] MEDS: CHOLECALCIFEROL 1,000 UNITS 25 MCG TAB PO SCH (08:27)
[2021-04-14] MEDS: CELECOXIB 100 MG CAP PO SCH (08:27)
[2021-04-14] MEDS: ACETAMINOPHEN 325 MG TAB PO PRN ×2 (08:44→18:14)
[2021-04-14] MEDS ORDERED: COUGH DROP (SUGAR FREE) LOZ 24 LOZ/1 BOX BUCCAL STA (08:53)
[2021-04-14] MEDS ORDERED: COUGH DROP (SUGAR FREE) LOZ 24 LOZ/1 BOX BUCCAL ONE (08:57)
[2021-04-14] MEDS: LETROZOLE 2.5 MG TAB PO SCH (09:30)
[2021-04-14] MEDS: INSULIN ASPART 100 UNITS/ML 3 ML PEN SC SCH ×4 (09:52→21:20)
[2021-04-14] MEDS: AZITHROMYCIN 500 MG in DEXTROSE 5% 250 ML IV SCH (10:00)
--- NOTE | 2021-04-14 12:32 | Hospitalist Progress Note ---
Date of Service April 14, 2021 Assessment & Plan (1) Pneumonia due to COVID-19 virus: Plan: Pneumonia due to COVID-19 virus/possible secondary bacterial pneumonia/hypoxia patient vaccinated with Pfizer July 2020 up to 5-6L this morning, no distress at all, breathing is normal according to patient Lasix 20mg IV yesterday, responded well Dexamethasone 6 mg IV daily, day 5 today Remdesivir IV per protocol, day 5 stop antibiotics, do not suspect bacterial infection at this point Duonebs PRN only, no wheezing Guaifenesin extended release 600 mg p.o. twice daily Vitamin D 1000 international units p.o. daily Zinc sulfate 220 mg p.o. daily Lovenox for prophylaxis move to medical floor COVID unit (2) Hypoxia: Plan: no distress or accessory muscles 5-6L today (3) Secondary bacterial pneumonia: Plan: 4 days of antibiotics doubt bacterial infection at this point, stop antibiotics (4) Type 2 diabetes mellitus: Plan: Hold Metformin and glipizide Placed on Accu-Cheks before meals and at bedtime with NovoLog coverage per scale monitor for hypoglycemia, no episodes (5) Hyperlipidemia: Plan: Continue simvastatin 20 mg at bedtime (6) Depression with anxiety: Plan: Continue alprazolam, citalopram mood better today (7) Hypothyroidism: Plan: Continue levothyroxine (8) HTN (hypertension): Plan: Continue amlodipine, aspirin, and losartan (9) GERD (gastroesophageal reflux disease): Plan: Continue omeprazole/pantoprazole Admission and Anticipated Discharge Date Admission Date: April 10, 2021 Subjective patient doing well, says she feels great she desaturates with coughing spells and when she walks to the bathroom but she does not feel short of breath eating well, making urine, moving bowels no fever Review of Systems Review of Systems: All systems reviewed & are unremarkable except as noted in Subjective Respiratory: + cough and + dyspnea on exertion Physical Exam Physical Exam: General: well developed, obese, well nourished, no acute distress, comfortable Neck: supple, trachea midline, normal thyroid Lungs: lungs clear, normal respiratory effort, no accessory muscle use, no distress Heart: regular S1 and S2, no murmur, peripheral pulses normal, capillary refill normal, no edema Abdomen: soft, NT, ND, + BS, no hepatomegaly, normal to percussion Extremities: normal in appearance, no cyanosis, no petechiae, strength is 5/5 bilaterally Neuro: awake, cooperative, moves all extremities, no focal motor deficits, CN II-XII intact, sensation in extremities intact, normal speech Skin: warm, dry, no rash, normal turgor Psych: Awake, alert oriented x 3, euthymic affect Results & Data Results & Data ([facility]) Vital Signs (Past 12 Hours) Vital Signs Temp Pulse Pulse Resp BP Pulse Ox 04/14/21 12:05 36.4 C L 60 20 113/64 94 04/14/21 08:00 58 L 04/14/21 06:13 37.0 C 92 H 18 144/76 H 92 04/14/21 04:33 37.1 C 52 L 16 126/74 92 Laboratory Results Laboratory Results - last 24 hr 04/13/21 04/13/21 04/14/21 17:00 20:35 07:59 POC Glucose 168 H 187 H 129 H 04/14/21 11:45 POC Glucose 227 H Medications Administered Current Inpatient Medications Acetaminophen (Acetaminophen 325 Mg Tab) 650 mg PO Q4H PRN PRN Reason: Pain or Fever Stop: 05/11/21 01:28 Last Admin: 04/14/21 08:44 Dose: 650 mg Documented by: Albuterol (Albut/Ipratrop 3mg/0.5mg Neb 3 Ml Vial) 3 ml NEB QIDR PRN PRN Reason: Wheezing Stop: 05/11/21 06:59 Alprazolam (Alprazolam 0.25 Mg Tablet) 0.25 mg PO DAILY PRN PRN Reason: anxiety Stop: 05/11/21 01:28 Last Admin: 04/13/21 12:49 Dose: 0.25 mg Documented by: Amlodipine Besylate (Amlodipine Besylate 5 Mg Tab) 10 mg PO DAILY [facility] Stop: 05/11/21 08:59 Last Admin: 04/14/21 08:26 Dose: 10 mg Documented by: Aspirin (Aspirin 81 Mg Ectab) 81 mg PO QAM [facility] Stop: 05/11/21 08:59 Last Admin: 04/14/21 08:26 Dose: 81 mg Documented by: Benzonatate (Benzonatate 100 Mg Capsule) 100 mg PO TID [facility] Stop: 05/11/21 13:59 Last Admin: 04/14/21 08:25 Dose: 100 mg Documented by: Celecoxib (Celecoxib 100 Mg Cap) 100 mg PO DAILY [facility] Stop: 05/11/21 08:59 Last Admin: 04/14/21 08:27 Dose: 100 mg Documented by: Citalopram Hydrobromide (Citalopram 40 Mg Tab) 40 mg PO DAILY [facility] Stop: 05/11/21 08:59 Last Admin: 04/14/21 08:25 Dose: 40 mg Documented by: Dextrose (Dextrose 50% 50 Ml Syringe) 25 - 50 ml IV UD PRN; Protocol PRN Reason: Hypoglycemia Protocol Stop: 05/11/21 01:28 Docusate Sodium (Docusate Sodium 100 Mg Cap) 100 mg PO BID PRN PRN Reason: constipation Stop: 05/13/21 20:59 Last Admin: 04/13/21 21:38 Dose: 100 mg Documented by: Enoxaparin Sodium (Enoxaparin Inj 40 Mg/0.4 Ml Syr) 40 mg SQ HS [facility] Stop: 05/11/21 20:59 Last Admin: 04/13/21 21:36 Dose: 40 mg Documented by: Glucagon (Glucagon For Inj 1 Mg Vial) 1 mg SQ UD PRN; Protocol PRN Reason: Hypoglycemia Protocol Stop: 05/11/21 01:28 Glucose (Glucose 10 Tabs/Tube) 4 - 8 tabs PO UD PRN; Protocol PRN Reason: Hypoglycemia Protocol Stop: 05/11/21 01:28 Glucose (Glucose 40% Gel 15 Gm Tube) 15 - 30 gm PO UD PRN; Protocol PRN Reason: Hypoglycemia Protocol Stop: 05/11/21 01:28 Guaifenesin (Guaifenesin 600 Mg Tabcr) 1,200 mg PO Q12 [facility] Stop: 05/11/21 08:59 Last Admin: 04/14/21 08:25 Dose: 1,200 mg Documented by: Guaifenesin/Codeine Phosphate (Guaifenesin/Codeine 100mg/10mg 5ml Udc) 5 ml PO Q6H PRN PRN Reason: Cough Stop: 05/11/21 13:38 Last Admin: 04/12/21 15:10 Dose: 5 ml Documented by: Dexamethasone 6 mg/ Syringe 1.5 mls @ 1 mls/min IV DAILY [facility] Stop: 05/11/21 08:59 Last Admin: 04/14/21 08:22 Dose: 1 mls/min Documented by: Remdesivir 100 mg/ Sodium (Chloride) 250 mls @ 250 mls/hr IV Q24H [facility]; Protocol Stop: 04/14/21 20:59 Last Infusion: 04/13/21 21:39 Dose: Infused Documented by: Ceftriaxone Sodium 2,000 mg/ (Dextrose) 70 mls @ 100 mls/hr IV DAILY [facility]; Protocol Stop: 04/18/21 08:59 Last Infusion: 04/14/21 11:51 Dose: Infused Documented by: Azithromycin 500 mg/ Dextrose 255 mls @ 125 mls/hr IV DAILY [facility]; Protocol Stop: 04/18/21 08:59 Last Infusion: 04/14/21 11:51 Dose: 0 mls/hr Documented by: Insulin Aspart (Insulin Aspart 100 Units/Ml 3 Ml Pen) 0 units SC ACHS [facility] Stop: 05/11/21 07:29 Last Admin: 04/14/21 09:52 Dose: 3 units Documented by: Letrozole (Letrozole 2.5 Mg Tab) 2.5 mg PO DAILY [facility] Stop: 05/12/21 08:59 Last Admin: 04/14/21 09:30 Dose: 2.5 mg Documented by: Levothyroxine Sodium (Levothyroxine Sodium 150 Mcg Tablet) 150 mcg PO DAILYBB [facility] Stop: 05/11/21 06:29 Last Admin: 04/14/21 06:02 Dose: 150 mcg Documented by: Losartan Potassium (Losartan Potassium 50 Mg Tab) 100 mg PO DAILY [facility] Stop: 05/11/21 08:59 Last Admin: 04/14/21 08:24 Dose: 100 mg Documented by: Meclizine HCl (Meclizine 12.5 Mg Tab) 12.5 mg PO Q6H PRN PRN Reason: dizziness Stop: 05/11/21 01:28 Last Admin: 04/11/21 08:19 Dose: 12.5 mg Documented by: Melatonin (Melatonin 3 Mg Tab) 3 mg PO HS PRN PRN Reason: Sleep Stop: 05/13/21 20:36 Last Admin: 04/13/21 21:38 Dose: 3 mg Documented by: Miscellaneous (Carbohydrates For Hypoglycemia ) 15 - 30 gm PO UD PRN PRN Reason: Hypoglycemia Protocol Stop: 05/11/21 01:28 Ondansetron HCl (Ondansetron Inj 2 Mg/Ml 2 Ml Vial) 4 mg IV Q6H PRN PRN Reason: Nausea Stop: 05/11/21 01:28 Pantoprazole Sodium (Pantoprazole 40 Mg Tab) 40 mg PO DAILY [facility]; Protocol Stop: 05/11/21 08:59 Last Admin: 04/14/21 08:24 Dose: 40 mg Documented by: Simvastatin (Simvastatin 20 Mg Tab) 20 mg PO HS [facility] Stop: 05/11/21 20:59 Last Admin: 04/13/21 21:38 Dose: 20 mg Documented by: Sodium Chloride (Sodium Chloride 0.9% 10ml Flush) 30 ml IV DAILY@2100 [facility] Stop: 04/14/21 21:01 Last Admin: 04/13/21 21:39 Dose: 30 ml Documented by: Vitamin D (Cholecalciferol 1,000 Units 25 Mcg Tab) 1,000 units PO QAM [facility] Stop: 05/11/21 08:59 Last Admin: 04/14/21 08:27 Dose: 1,000 units Documented by: Zinc Sulfate (Zinc Sulfate 220 Mg Capsule) 220 mg PO QAM [facility] Stop: 05/11/21 08:59 Last Admin: 04/14/21 08:24 Dose: 220 mg Documented by: PG Care Time/CCT Total # of Minutes Spent Total Time Spent with Patient: Total time spent is greater than 50% in coordination of care (as documented) at patient's floor/unit and/or counseling patient: Coding Level of Care Code 84943 Subseq Hosp Care Lvl 2 Diagnoses Pneumonia due to COVID-19 virus U07.1; J12.82 Hypoxia R09.02 Secondary bacterial pneumonia J15.9 Type 2 diabetes mellitus E11.9 Diabetes mellitus assisted insulin use: without assisted use Diabetes mellitus complication status: without complication Hyperlipidemia E78.5 Hyperlipidemia type: unspecified Depression with anxiety F41.8 Hypothyroidism E03.9 Hypothyroidism type: unspecified HTN (hypertension) I10 GERD (gastroesophageal reflux disease) K21.9 (1) Type 2 diabetes mellitus Diabetes mellitus terminal operations supervisor insulin use: without terminal operations supervisor use Diabetes mellitus complication status: without complication Qualified Code(s): E11.9 - Type 2 diabetes mellitus without complications (2) Hyperlipidemia Hyperlipidemia type: unspecified Qualified Code(s): E78.5 - Hyperlipidemia, unspecified (3) Hypothyroidism Hypothyroidism type: unspecified Qualified Code(s): E03.9 - Hypothyroidism, unspecified
[2021-04-14] MEDS: REMDESIVIR 100 MG in SODIUM CHLORIDE 0.9% 230 ML IV SCH (20:21)
[2021-04-14] MEDS: ENOXAPARIN INJ 40 MG/0.4 ML SYR SQ SCH (20:41)
[2021-04-14] MEDS: SIMVASTATIN 20 MG TAB PO SCH (20:42)
[2021-04-14] MEDS: SODIUM CHLORIDE 0.9% 10ML FLUSH IV SCH (22:05)
[2021-04-14] MEDS: guaiFENesin/CODEINE 100MG/10MG 5ML UDC PO PRN (22:05)
[2021-04-14] MEDS: DOCUSATE SODIUM 100 MG CAP PO PRN (22:05)
[2021-04-14] MEDS: MELATONIN 3 MG TAB PO PRN (22:05)
[2021-04-15] MEDS: LEVOTHYROXINE SODIUM 150 MCG TABLET PO SCH (06:16)
[2021-04-15] MEDS ORDERED: FUROSEMIDE 20 MG in SYRINGE 0 ML IV ONE (08:45)
--- NOTE | 2021-04-15 08:45 | Hospitalist Progress Note ---
Date of Service April 15, 2021 Assessment & Plan (1) Pneumonia due to COVID-19 virus: Plan: Pneumonia due to COVID-19 virus/possible secondary bacterial pneumonia/hypoxia patient vaccinated with Pfizer July 2020 was on 6L yesterday, sitting in chair, no distress up to 15L this morning after she desaturated walking to bathroom and could not recover currently 97% on her side, tried to lay prone, lasted 5 minutes, panicked will place vazquez, give Lasix 20mg IV, have her rest today, just sit up to eat Dexamethasone 6 mg IV daily, day 6 today Remdesivir IV per protocol, day 5 stop antibiotics, do not suspect bacterial infection at this point Duonebs PRN only, no wheezing Guaifenesin extended release 600 mg p.o. twice daily Vitamin D 1000 international units p.o. daily Zinc sulfate 220 mg p.o. daily Lovenox for prophylaxis keep here on 2nd floor COVID wing (2) Hypoxia: Plan: more tachypneic today and using some accessory muscles up to 15L from 6L lay on her side all the time except while eating, vazquez placed, give lasix to keep lungs dry today (3) Secondary bacterial pneumonia: Plan: 4 days of antibiotics doubt bacterial infection at this point, stopped antibiotics (4) Type 2 diabetes mellitus: Plan: Hold Metformin and glipizide Placed on Accu-Cheks before meals and at bedtime with NovoLog coverage per scale monitor for hypoglycemia, no episodes (5) Hyperlipidemia: Plan: Continue simvastatin 20 mg at bedtime (6) Depression with anxiety: Plan: Continue alprazolam, citalopram mood better today (7) Hypothyroidism: Plan: Continue levothyroxine (8) HTN (hypertension): Plan: Continue amlodipine, aspirin, and losartan (9) GERD (gastroesophageal reflux disease): Plan: Continue omeprazole/pantoprazole Admission and Anticipated Discharge Date Admission Date: April 10, 2021 Subjective patient desaturated overnight, ambulated to bathroom, could not recover, had been on 6L, bumped to 15L wall high flow she is laying on her side right now, saturations up to 97% needs a dose of Lasix, will place vazquez so she does not need to get up as she desaturates with movement and coughing CXR this morning: does not look much worse compared to 04/10, might even be little improved, waiting on radiology read sugar stable this morning she ate breakfast + dyspnea, cough, weakness no fever, no chest pain, no diarrhea Review of Systems Review of Systems: All systems reviewed & are unremarkable except as noted in Subjective Physical Exam Physical Exam: General: well developed, obese, well nourished, no acute distress, comfortable Neck: supple, trachea midline, normal thyroid Lungs: crackles in bases, + tachypnea, + cough, some accessory muscle use, no distress Heart: regular S1 and S2, no murmur, peripheral pulses normal, capillary refill normal, no edema Abdomen: soft, NT, ND, + BS, no hepatomegaly, normal to percussion Extremities: normal in appearance, no cyanosis, no petechiae, strength is 5/5 bilaterally Neuro: awake, cooperative, moves all extremities, no focal motor deficits, CN II-XII intact, sensation in extremities intact, normal speech Skin: warm, dry, no rash, normal turgor Psych: Awake, alert oriented x 3, euthymic affect Results & Data Results & Data ([facility]) Vital Signs (Past 12 Hours) Vital Signs Temp Pulse Pulse Resp BP Pulse Ox 04/15/21 07:04 36.2 C L 62 19 150/76 H 94 04/15/21 04:00 36.5 C 56 L 23 149/75 H 04/14/21 23:28 36.7 C 49 L 20 147/77 H 92 04/14/21 22:30 46 L Laboratory Results Laboratory Results - last 24 hr 04/14/21 04/14/21 04/14/21 11:45 16:28 20:29 POC Glucose 227 H 190 H 194 H 04/15/21 07:06 POC Glucose 114 H Medications Administered Current Inpatient Medications Acetaminophen (Acetaminophen 325 Mg Tab) 650 mg PO Q4H PRN PRN Reason: Pain or Fever Stop: 05/11/21 01:28 Last Admin: 04/14/21 18:14 Dose: 650 mg Documented by: Albuterol (Albut/Ipratrop 3mg/0.5mg Neb 3 Ml Vial) 3 ml NEB QIDR PRN PRN Reason: Wheezing Stop: 05/11/21 06:59 Alprazolam (Alprazolam 0.25 Mg Tablet) 0.25 mg PO DAILY PRN PRN Reason: anxiety Stop: 05/11/21 01:28 Last Admin: 04/13/21 12:49 Dose: 0.25 mg Documented by: Amlodipine Besylate (Amlodipine Besylate 5 Mg Tab) 10 mg PO DAILY ABDELRAHMAN Stop: 05/11/21 08:59 Last Admin: 04/14/21 08:26 Dose: 10 mg Documented by: Aspirin (Aspirin 81 Mg Ectab) 81 mg PO QAM ABDELRAHMAN Stop: 05/11/21 08:59 Last Admin: 04/14/21 08:26 Dose: 81 mg Documented by: Benzonatate (Benzonatate 100 Mg Capsule) 100 mg PO TID ABDELRAHMAN Stop: 05/11/21 13:59 Last Admin: 04/14/21 20:41 Dose: 100 mg Documented by: Celecoxib (Celecoxib 100 Mg Cap) 100 mg PO DAILY ABDELRAHMAN Stop: 05/11/21 08:59 Last Admin: 04/14/21 08:27 Dose: 100 mg Documented by: Citalopram Hydrobromide (Citalopram 40 Mg Tab) 40 mg PO DAILY ABDELRAHMAN Stop: 05/11/21 08:59 Last Admin: 04/14/21 08:25 Dose: 40 mg Documented by: Dextrose (Dextrose 50% 50 Ml Syringe) 25 - 50 ml IV UD PRN; Protocol PRN Reason: Hypoglycemia Protocol Stop: 05/11/21 01:28 Docusate Sodium (Docusate Sodium 100 Mg Cap) 100 mg PO BID PRN PRN Reason: constipation Stop: 05/13/21 20:59 Last Admin: 04/14/21 22:05 Dose: 100 mg Documented by: Enoxaparin Sodium (Enoxaparin Inj 40 Mg/0.4 Ml Syr) 40 mg SQ HS ABDELRAHMAN Stop: 05/11/21 20:59 Last Admin: 04/14/21 20:41 Dose: 40 mg Documented by: Glucagon (Glucagon For Inj 1 Mg Vial) 1 mg SQ UD PRN; Protocol PRN Reason: Hypoglycemia Protocol Stop: 05/11/21 01:28 Glucose (Glucose 10 Tabs/Tube) 4 - 8 tabs PO UD PRN; Protocol PRN Reason: Hypoglycemia Protocol Stop: 05/11/21 01:28 Glucose (Glucose 40% Gel 15 Gm Tube) 15 - 30 gm PO UD PRN; Protocol PRN Reason: Hypoglycemia Protocol Stop: 05/11/21 01:28 Guaifenesin (Guaifenesin 600 Mg Tabcr) 1,200 mg PO Q12 ABDELRAHMAN Stop: 05/11/21 08:59 Last Admin: 04/14/21 20:41 Dose: 1,200 mg Documented by: Guaifenesin/Codeine Phosphate (Guaifenesin/Codeine 100mg/10mg 5ml Udc) 5 ml PO Q6H PRN PRN Reason: Cough Stop: 05/11/21 13:38 Last Admin: 04/14/21 22:05 Dose: 5 ml Documented by: Dexamethasone 6 mg/ Syringe 1.5 mls @ 1 mls/min IV DAILY ABDELRAHMAN Stop: 05/11/21 08:59 Last Admin: 04/14/21 08:22 Dose: 1 mls/min Documented by: Ceftriaxone Sodium 2,000 mg/ (Dextrose) 70 mls @ 100 mls/hr IV DAILY ABDELRAHMAN; Protocol Stop: 04/18/21 08:59 Last Infusion: 04/14/21 11:51 Dose: Infused Documented by: Azithromycin 500 mg/ Dextrose 255 mls @ 125 mls/hr IV DAILY ABDELRAHMAN; Protocol Stop: 04/18/21 08:59 Last Infusion: 04/14/21 11:51 Dose: 0 mls/hr Documented by: Insulin Aspart (Insulin Aspart 100 Units/Ml 3 Ml Pen) 0 units SC ACHS ABDELRAHMAN Stop: 05/11/21 07:29 Last Admin: 04/14/21 21:20 Dose: 1 units Documented by: Letrozole (Letrozole 2.5 Mg Tab) 2.5 mg PO DAILY ABDELRAHMAN Stop: 05/12/21 08:59 Last Admin: 04/14/21 09:30 Dose: 2.5 mg Documented by: Levothyroxine Sodium (Levothyroxine Sodium 150 Mcg Tablet) 150 mcg PO DAILYBB ABDELRAHMAN Stop: 05/11/21 06:29 Last Admin: 04/15/21 06:16 Dose: 150 mcg Documented by: Losartan Potassium (Losartan Potassium 50 Mg Tab) 100 mg PO DAILY ABDELRAHMAN Stop: 05/11/21 08:59 Last Admin: 04/14/21 08:24 Dose: 100 mg Documented by: Meclizine HCl (Meclizine 12.5 Mg Tab) 12.5 mg PO Q6H PRN PRN Reason: dizziness Stop: 05/11/21 01:28 Last Admin: 04/11/21 08:19 Dose: 12.5 mg Documented by: Melatonin (Melatonin 3 Mg Tab) 3 mg PO HS PRN PRN Reason: Sleep Stop: 05/13/21 20:36 Last Admin: 04/14/21 22:05 Dose: 3 mg Documented by: Miscellaneous (Carbohydrates For Hypoglycemia ) 15 - 30 gm PO UD PRN PRN Reason: Hypoglycemia Protocol Stop: 05/11/21 01:28 Ondansetron HCl (Ondansetron Inj 2 Mg/Ml 2 Ml Vial) 4 mg IV Q6H PRN PRN Reason: Nausea Stop: 05/11/21 01:28 Pantoprazole Sodium (Pantoprazole 40 Mg Tab) 40 mg PO DAILY [facility]; Protocol Stop: 05/11/21 08:59 Last Admin: 04/14/21 08:24 Dose: 40 mg Documented by: Simvastatin (Simvastatin 20 Mg Tab) 20 mg PO HS ABDELRAHMAN Stop: 05/11/21 20:59 Last Admin: 04/14/21 20:42 Dose: 20 mg Documented by: Vitamin D (Cholecalciferol 1,000 Units 25 Mcg Tab) 1,000 units PO QAM [facility] Stop: 05/11/21 08:59 Last Admin: 04/14/21 08:27 Dose: 1,000 units Documented by: Zinc Sulfate (Zinc Sulfate 220 Mg Capsule) 220 mg PO QAM [facility] Stop: 05/11/21 08:59 Last Admin: 04/14/21 08:24 Dose: 220 mg Documented by: PG Care Time/CCT Total # of Minutes Spent Total Time Spent: 31 Total Time Spent with Patient: Total time spent is greater than 50% in coordination of care (as documented) at patient's floor/unit and/or counseling patient: Coding Level of Care Code 99387 Subseq Hosp Care Lvl 3 (25 - SIGNIFICANT, SEPARATELY IDENTIFIABLE ) Diagnoses Pneumonia due to COVID-19 virus U07.1; J12.82 Hypoxia R09.02 Secondary bacterial pneumonia J15.9 Type 2 diabetes mellitus E11.9 Diabetes mellitus complication status: without complication 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: without assisted use Hyperlipidemia E78.5 Hyperlipidemia type: unspecified Depression with anxiety F41.8 Hypothyroidism E03.9 Hypothyroidism type: unspecified HTN (hypertension) I10 GERD (gastroesophageal reflux disease) K21.9 (1) Type 2 diabetes mellitus Diabetes mellitus complication status: without complication 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
[2021-04-15] MEDS ORDERED: FUROSEMIDE 40 MG/4 ML VIAL IV ONE (09:15)
[2021-04-15] MEDS: cefTRIAXone SODIUM 2,000 MG in DEXTROSE 5% 50 ML IV SCH (09:29)
[2021-04-15] MEDS: AZITHROMYCIN 500 MG in DEXTROSE 5% 250 ML IV SCH (09:30)
[2021-04-15] MEDS: dexAMETHasone 6 MG in SYRINGE 0 ML IV SCH (09:30)
[2021-04-15] MEDS: guaiFENesin 600 MG TABCR PO SCH ×2 (09:35→20:17)
[2021-04-15] MEDS: amLODIPine BESYLATE 5 MG TAB PO SCH (09:35)
[2021-04-15] MEDS: BENZONATATE 100 MG CAPSULE PO SCH ×3 (09:35→20:15)
[2021-04-15] MEDS: ASPIRIN 81 MG ECTAB PO SCH (09:35)
[2021-04-15] MEDS: LETROZOLE 2.5 MG TAB PO SCH (09:36)
[2021-04-15] MEDS: MECLIZINE 12.5 MG TAB PO PRN (09:37)
[2021-04-15] MEDS: CITALOPRAM 40 MG TAB PO SCH (09:37)
[2021-04-15] MEDS: ZINC SULFATE 220 MG CAPSULE PO SCH (09:38)
[2021-04-15] MEDS: CHOLECALCIFEROL 1,000 UNITS 25 MCG TAB PO SCH (09:38)
[2021-04-15] MEDS: PANTOprazole 40 MG TAB PO SCH (09:38)
[2021-04-15] MEDS: CELECOXIB 100 MG CAP PO SCH (09:38)
[2021-04-15] MEDS: LOSARTAN POTASSIUM 50 MG TAB PO SCH (09:38)
[2021-04-15] MEDS: INSULIN ASPART 100 UNITS/ML 3 ML PEN SC SCH ×4 (10:33→20:54)
--- NOTE | 2021-04-15 11:13 | XRay Report ---
XR chest 1V portable HISTORY: covid, hypoxia COMPARISON: Chest 04/10/2021. FINDINGS: No pneumothorax. No pleural effusions. The heart is normal in size. Scattered patchy multif ocal bilateral airspace opacities most pronounced within the left lower lobe have slightly progressed in the interval. No evidence for pulmonary edema. IMPRESSION: Slight progression of the multifocal airspace opacities consistent with a viral pneumonia. ACT 112: Negative or not required by law. Electronically signed by: Nathaniel Morrell M.D. 04/15/2021 11:11 AM
[2021-04-15] MEDS ORDERED: bisacodyL 10 MG SUPP PR STA (16:45)
[2021-04-15] MEDS: ACETAMINOPHEN 325 MG TAB PO PRN (17:41)
[2021-04-15] MEDS: ENOXAPARIN INJ 40 MG/0.4 ML SYR SQ SCH (20:16)
[2021-04-15] MEDS: SIMVASTATIN 20 MG TAB PO SCH (20:18)
[2021-04-15] MEDS: ALPRAZolam 0.25 MG TABLET PO PRN (20:23)
[2021-04-16] MEDS: LEVOTHYROXINE SODIUM 150 MCG TABLET PO SCH (05:58)
[2021-04-16] MEDS: cefTRIAXone SODIUM 2,000 MG in DEXTROSE 5% 50 ML IV SCH (08:14)
[2021-04-16] MEDS: AZITHROMYCIN 500 MG in DEXTROSE 5% 250 ML IV SCH (08:14)
[2021-04-16] MEDS: MECLIZINE 12.5 MG TAB PO PRN (08:15)
[2021-04-16] MEDS: CELECOXIB 100 MG CAP PO SCH (08:15)
[2021-04-16] MEDS: guaiFENesin 600 MG TABCR PO SCH ×2 (08:15→20:16)
[2021-04-16] MEDS: dexAMETHasone 6 MG in SYRINGE 0 ML IV SCH (08:15)
[2021-04-16] MEDS: INSULIN ASPART 100 UNITS/ML 3 ML PEN SC SCH ×4 (08:16→21:27)
[2021-04-16] MEDS: amLODIPine BESYLATE 5 MG TAB PO SCH (08:16)
[2021-04-16] MEDS: PANTOprazole 40 MG TAB PO SCH (08:16)
[2021-04-16] MEDS: BENZONATATE 100 MG CAPSULE PO SCH ×3 (08:16→20:15)
[2021-04-16] MEDS: ASPIRIN 81 MG ECTAB PO SCH (08:16)
[2021-04-16] MEDS: CHOLECALCIFEROL 1,000 UNITS 25 MCG TAB PO SCH (08:17)
[2021-04-16] MEDS: CITALOPRAM 40 MG TAB PO SCH (08:17)
[2021-04-16] MEDS: ZINC SULFATE 220 MG CAPSULE PO SCH (08:18)
[2021-04-16] MEDS: LOSARTAN POTASSIUM 50 MG TAB PO SCH (08:19)
[2021-04-16] MEDS: LETROZOLE 2.5 MG TAB PO SCH (08:19)
[2021-04-16 15:24] LABS: Calcium 8.5 mg/dl (8.5-10.1); Creatinine Clr Calc Pharmacy 49.1 ml/min; Est GFR (African American) 58.1 ml/min; Est GFR (Non-African American) 50.1 ml/min; Phosphorus 2.6 mg/dl (2.5-4.9); Potassium 4.2 mmol/L (3.5-5.1)
[2021-04-16 15:40] LABS: Beta-Hydroxybutyrate 1.26 mg/dl (0.2-2.81)
--- NOTE | 2021-04-16 17:59 | XRay Report ---
KUB HISTORY: abdominal distention COMPARISON: None. FINDINGS: The bowel gas pattern is unremarkable. There are no dilated loops of small bowel to suggest an obstruction. No renal calculi. No ureteral calculi. Calcifications in the deep pelvis likely rep resent phleboliths. L2-S1 posterior decompression and fusion with pedicle screws and rods. The hardwa re appears intact. Small to moderate amount of well-formed stool seen throughout the colon. No pneumo peritoneum or pneumatosis. IMPRESSION: No evidence for bowel obstruction. ACT 112: Negative or not required by law. Electronically signed by: Nathaniel Morrell M.D. 04/16/2021 5:57 PM
[2021-04-16] MEDS: POLYETHYLENE (MIRALAX) 17 GM PACK PO SCH (18:09)
[2021-04-16] MEDS: ENOXAPARIN INJ 40 MG/0.4 ML SYR SQ SCH (20:15)
[2021-04-16] MEDS: SIMVASTATIN 20 MG TAB PO SCH (20:17)
--- NOTE | 2021-04-16 22:07 | Hospitalist Progress Note ---
Date of Service April 16, 2021 Assessment & Plan (1) Pneumonia due to COVID-19 virus: Plan: Pneumonia due to COVID-19 virus/possible secondary bacterial pneumonia/hypoxia patient vaccinated with Pfizer July 2020 was on 6L 48 hours ago, sitting in chair, no distress up to 15L yesterday after she desaturated walking to bathroom and could not recover currenty on 6 liters. Dexamethasone 6 mg IV daily, day 7 today Remdesivir IV per protocol, completed stop antibiotics, do not suspect bacterial infection at this point Duonebs PRN only, no wheezing Guaifenesin extended release 600 mg p.o. twice daily Vitamin D 1000 international units p.o. daily Zinc sulfate 220 mg p.o. daily Lovenox for prophylaxis keep here on 2nd floor COVID wing (2) Hypoxia: Plan: more tachypneic today and using some accessory muscles up to 6 L NC lay on her side all the time except while eating, vazquez placed, give lasix to keep lungs dry today (3) Secondary bacterial pneumonia: Plan: 4 days of antibiotics doubt bacterial infection at this point, stopped antibiotics (4) Type 2 diabetes mellitus: Plan: Hold Metformin and glipizide Placed on Accu-Cheks before meals and at bedtime with NovoLog coverage per scale monitor for hypoglycemia, no episodes (5) Hyperlipidemia: Plan: Continue simvastatin 20 mg at bedtime (6) Depression with anxiety: Plan: Continue alprazolam, citalopram mood better today (7) Hypothyroidism: Plan: Continue levothyroxine (8) HTN (hypertension): Plan: Continue amlodipine, aspirin, and losartan (9) GERD (gastroesophageal reflux disease): Plan: Continue omeprazole/pantoprazole Admission and Anticipated Discharge Date Admission Date: April 10, 2021 Subjective Patient reports no new symptoms. Review of Systems Review of Systems: All systems reviewed & are unremarkable except as noted in HPI & below Physical Exam Physical Exam: General: well developed, obese, well nourished, no acute distress, comfortable Neck: supple, trachea midline, normal thyroid Lungs: crackles in bases, Heart: regular S1 and S2, no murmur, peripheral pulses normal, capillary refill normal, no edema Abdomen: soft, NT, ND, + BS, no hepatomegaly, normal to percussion Extremities: normal in appearance, no cyanosis, no petechiae, strength is 5/5 bilaterally Neuro: awake, cooperative, moves all extremities, no focal motor deficits, CN II-XII intact, sensation in extremities intact, normal speech Skin: warm, dry, no rash, normal turgor Psych: Awake, alert oriented x 3, euthymic affect Results & Data Results & Data ([facility]) Vital Signs (Past 12 Hours) Vital Signs Temp Pulse Resp BP Pulse Ox 04/16/21 19:23 37.1 C 57 L 129/80 93 04/16/21 15:18 36.5 C 56 L 20 160/59 H 95 04/16/21 14:00 66 22 97 04/16/21 11:46 36.4 C L 70 20 128/59 L 94 PG Care Time/CCT Total # of Minutes Spent Total Time Spent with Patient: Total time spent is greater than 50% in coordination of care (as documented) at patient's floor/unit and/or counseling patient: Coding Level of Care Code 56395 Subseq Hosp Care Lvl 3 Diagnoses Pneumonia due to COVID-19 virus U07.1; J12.82 Hypoxia R09.02 Secondary bacterial pneumonia J15.9 Type 2 diabetes mellitus E11.9 Diabetes mellitus complication status: without complication Diabetes mellitus assisted insulin use: without assisted use Hyperlipidemia E78.5 Hyperlipidemia type: unspecified Depression with anxiety F41.8 Hypothyroidism E03.9 Hypothyroidism type: unspecified HTN (hypertension) I10 GERD (gastroesophageal reflux disease) K21.9 Time Spent (min) 35 (1) Type 2 diabetes mellitus Diabetes mellitus complication status: without complication Diabetes mellitus assisted insulin use: without collar closer lockstitch use Qualified Code(s): E11.9 - Type 2 diabetes mellitus without complications (2) Hyperlipidemia Hyperlipidemia type: unspecified Qualified Code(s): E78.5 - Hyperlipidemia, unspecified (3) Hypothyroidism Hypothyroidism type: unspecified Qualified Code(s): E03.9 - Hypothyroidism, unspecified
[2021-04-17] MEDS: LEVOTHYROXINE SODIUM 150 MCG TABLET PO SCH (05:32)
[2021-04-17] MEDS: AZITHROMYCIN 500 MG in DEXTROSE 5% 250 ML IV SCH (08:55)
[2021-04-17] MEDS: dexAMETHasone 6 MG in SYRINGE 0 ML IV SCH (08:55)
[2021-04-17] MEDS: cefTRIAXone SODIUM 2,000 MG in DEXTROSE 5% 50 ML IV SCH (08:55)
[2021-04-17] MEDS: BENZONATATE 100 MG CAPSULE PO SCH ×3 (08:56→19:49)
[2021-04-17] MEDS: guaiFENesin 600 MG TABCR PO SCH ×2 (08:56→19:49)
[2021-04-17] MEDS: LOSARTAN POTASSIUM 50 MG TAB PO SCH (08:56)
[2021-04-17] MEDS: ASPIRIN 81 MG ECTAB PO SCH (08:57)
[2021-04-17] MEDS: CHOLECALCIFEROL 1,000 UNITS 25 MCG TAB PO SCH (08:57)
[2021-04-17] MEDS: PANTOprazole 40 MG TAB PO SCH (08:57)
[2021-04-17] MEDS: amLODIPine BESYLATE 5 MG TAB PO SCH (08:57)
[2021-04-17] MEDS: CITALOPRAM 40 MG TAB PO SCH (08:57)
[2021-04-17] MEDS: CELECOXIB 100 MG CAP PO SCH (08:57)
[2021-04-17] MEDS: ZINC SULFATE 220 MG CAPSULE PO SCH (08:58)
[2021-04-17] MEDS: POLYETHYLENE (MIRALAX) 17 GM PACK PO SCH (08:58)
[2021-04-17] MEDS: INSULIN ASPART 100 UNITS/ML 3 ML PEN SC SCH ×4 (09:01→22:09)
[2021-04-17] MEDS: LETROZOLE 2.5 MG TAB PO SCH (09:02)
[2021-04-17] MEDS: ACETAMINOPHEN 325 MG TAB PO PRN (10:38)
[2021-04-17] MEDS ORDERED: FUROSEMIDE 20 MG in SYRINGE 0 ML IV ONE (11:21)
[2021-04-17] MEDS ORDERED: FUROSEMIDE 40 MG/4 ML VIAL IV ONE (11:30)
[2021-04-17] MEDS: ALPRAZolam 0.25 MG TABLET PO PRN (19:49)
[2021-04-17] MEDS: SIMVASTATIN 20 MG TAB PO SCH (19:49)
[2021-04-17] MEDS: ENOXAPARIN INJ 40 MG/0.4 ML SYR SQ SCH (19:50)
--- NOTE | 2021-04-17 20:11 | Hospitalist Progress Note ---
Date of Service April 17, 2021 Assessment & Plan (1) Pneumonia due to COVID-19 virus: Plan: Pneumonia due to COVID-19 virus/possible secondary bacterial pneumonia/hypoxia patient vaccinated with Pfizer July 2020 Patient was on 6 L yesterday, however today, patient is now requiring High flow. Will closely monitor. Dexamethasone 6 mg IV daily, day 8 today Remdesivir IV per protocol, completed stop antibiotics, do not suspect bacterial infection at this point Duonebs PRN only, no wheezing Guaifenesin extended release 600 mg p.o. twice daily Vitamin D 1000 international units p.o. daily Zinc sulfate 220 mg p.o. daily Lovenox for prophylaxis keep here on 2nd floor COVID wing (2) Hypoxia: Plan: tachypneic today and using some accessory muscles on high flow lay on her side all the time except while eating, vazquez placed, give lasix to keep lungs dry today (3) Secondary bacterial pneumonia: Plan: 4 days of antibiotics doubt bacterial infection at this point, stopped antibiotics (4) Type 2 diabetes mellitus: Plan: Hold Metformin and glipizide Placed on Accu-Cheks before meals and at bedtime with NovoLog coverage per scale monitor for hypoglycemia, no episodes (5) Hyperlipidemia: Plan: Continue simvastatin 20 mg at bedtime (6) Depression with anxiety: Plan: Continue alprazolam, citalopram mood better today (7) Hypothyroidism: Plan: Continue levothyroxine (8) HTN (hypertension): Plan: Continue amlodipine, aspirin, and losartan (9) GERD (gastroesophageal reflux disease): Plan: Continue omeprazole/pantoprazole Admission and Anticipated Discharge Date Admission Date: April 10, 2021 Subjective Patient reports no new symptoms. Patient reports she has not had a BM today. Review of Systems Review of Systems: All systems reviewed & are unremarkable except as noted in HPI & below Physical Exam Physical Exam: General: well developed, obese, well nourished, no acute distress, comfortable Neck: supple, trachea midline, normal thyroid Lungs: crackles in bases, Heart: regular S1 and S2, no murmur, peripheral pulses normal, capillary refill normal, no edema Abdomen: soft, NT, ND, + BS, no hepatomegaly, normal to percussion Extremities: normal in appearance, no cyanosis, no petechiae, strength is 5/5 bilaterally Neuro: awake, cooperative, moves all extremities, no focal motor deficits, CN II-XII intact, sensation in extremities intact, normal speech Skin: warm, dry, no rash, normal turgor Psych: Awake, alert oriented x 3, euthymic affect Results & Data Results & Data ([facility]) Vital Signs (Past 12 Hours) Vital Signs Temp Pulse Pulse Resp BP Pulse Ox 04/17/21 19:37 36.1 C L 91 H 36 H 118/65 91 04/17/21 18:43 26 H 90 04/17/21 16:30 36.8 C 56 L 26 H 130/62 90 04/17/21 15:13 64 04/17/21 14:00 91 04/17/21 11:22 36.7 C 70 22 130/62 96 04/17/21 09:00 58 L PG Care Time/CCT Total # of Minutes Spent Total Time Spent with Patient: Total time spent is greater than 50% in coordination of care (as documented) at patient's floor/unit and/or counseling patient: Coding Level of Care Code 26579 Subseq Hosp Care Lvl 2 Diagnoses Pneumonia due to COVID-19 virus U07.1; J12.82 Hypoxia R09.02 Secondary bacterial pneumonia J15.9 Type 2 diabetes mellitus E11.9 Diabetes mellitus complication status: without complication Diabetes mellitus cloth classer insulin use: without cloth classer use Hyperlipidemia E78.5 Hyperlipidemia type: unspecified Depression with anxiety F41.8 Hypothyroidism E03.9 Hypothyroidism type: unspecified HTN (hypertension) I10 GERD (gastroesophageal reflux disease) K21.9 Time Spent (min) 25 (1) Type 2 diabetes mellitus Diabetes mellitus complication status: without complication Diabetes mellitus long-term insulin use: without cloth classer use Qualified Code(s): E11.9 - Type 2 diabetes mellitus without complications (2) Hyperlipidemia Hyperlipidemia type: unspecified Qualified Code(s): E78.5 - Hyperlipidemia, unspecified (3) Hypothyroidism Hypothyroidism type: unspecified Qualified Code(s): E03.9 - Hypothyroidism, unspecified
[2021-04-18] MEDS: LEVOTHYROXINE SODIUM 150 MCG TABLET PO SCH (05:59)
[2021-04-18 07:37] LABS: Hematocrit (blood only) 37.8 % (37-47); Hemoglobin 13.2 g/dL (12.0-16.0); Mean Corpuscular Hemoglobin 31.2 pg (25-34); Mean Corpuscular Hgb Conc 34.9 g/dL (32-36); Mean Corpuscular Volume 89.4 fL (80-100); Mean Platelet Volume 10.2 fL (7.4-10.4); Platelet Count 307 K/uL (130-400); RDW Coefficient of Variation 12.8 % (11.5-14.5); RDW Standard Deviation 41.7 fL (36.4-46.3); Red Blood Count 4.23 M/uL (4.2-5.4); White Blood Count 9.19 K/uL (4.8-10.8)
[2021-04-18 08:06] LABS: BUN Creatinine Ratio 27.8 (10-20); C Reactive Protein 1.29 mg/dl (0-0.29); Calcium 9.2 mg/dl (8.5-10.1); Creatinine Clr Calc Pharmacy 66.8 ml/min; Est GFR (African American) 85.9 ml/min; Est GFR (Non-African American) 74.1 ml/min; Potassium 4.3 mmol/L (3.5-5.1)
[2021-04-18] MEDS: dexAMETHasone 6 MG in SYRINGE 0 ML IV SCH (09:25)
[2021-04-18] MEDS: BENZONATATE 100 MG CAPSULE PO SCH ×3 (09:26→20:19)
[2021-04-18] MEDS: CHOLECALCIFEROL 1,000 UNITS 25 MCG TAB PO SCH (09:26)
[2021-04-18] MEDS: MECLIZINE 12.5 MG TAB PO PRN (09:26)
[2021-04-18] MEDS: CELECOXIB 100 MG CAP PO SCH (09:26)
[2021-04-18] MEDS: LOSARTAN POTASSIUM 50 MG TAB PO SCH (09:27)
[2021-04-18] MEDS: CITALOPRAM 40 MG TAB PO SCH (09:27)
[2021-04-18] MEDS: LETROZOLE 2.5 MG TAB PO SCH (09:27)
[2021-04-18] MEDS: amLODIPine BESYLATE 5 MG TAB PO SCH (09:27)
[2021-04-18] MEDS: PANTOprazole 40 MG TAB PO SCH (09:28)
[2021-04-18] MEDS: guaiFENesin 600 MG TABCR PO SCH ×2 (09:28→20:22)
[2021-04-18] MEDS: ASPIRIN 81 MG ECTAB PO SCH (09:28)
[2021-04-18] MEDS: ZINC SULFATE 220 MG CAPSULE PO SCH (09:28)
[2021-04-18] MEDS: POLYETHYLENE (MIRALAX) 17 GM PACK PO SCH (09:32)
--- NOTE | 2021-04-18 09:38 | XRay Report ---
XR chest 1V portable CLINICAL HISTORY: cough COMPARISON STUDY: Chest radiograph April 15, 2021. FINDINGS: Lung volumes are normal. There is no pneumothorax or pleural effusion. Cardiomediastinal si lhouette is stable. There is no evidence for pulmonary edema. There has been mild progression of bila teral airspace opacities which are greater within the left lung. IMPRESSION: Mild progression of bilateral airspace opacities, greater within the left lung. The find ings suggest viral pneumonia. ACT 112: Negative or not required by law. Electronically signed by: Josué Norton M.D. 04/18/2021 9:37 AM
[2021-04-18] MEDS: INSULIN ASPART 100 UNITS/ML 3 ML PEN SC SCH ×4 (10:04→21:01)
[2021-04-18] MEDS: ENOXAPARIN INJ 40 MG/0.4 ML SYR SQ SCH (20:20)
[2021-04-18] MEDS: SIMVASTATIN 20 MG TAB PO SCH (20:21)
[2021-04-18] MEDS: ACETAMINOPHEN 325 MG TAB PO PRN (20:32)
--- NOTE | 2021-04-18 20:49 | Hospitalist Progress Note ---
Date of Service April 18, 2021 Assessment & Plan (1) Pneumonia due to COVID-19 virus: Plan: Pneumonia due to COVID-19 virus/possible secondary bacterial pneumonia/hypoxia patient vaccinated with Pfizer July 2020 Patient was on 6 L yesterday, however today, patient is now requiring High flow. Will closely monitor. Dexamethasone 6 mg IV daily, day 9 today Remdesivir IV per protocol, completed stop antibiotics, do not suspect bacterial infection at this point Duonebs PRN only, no wheezing Guaifenesin extended release 600 mg p.o. twice daily Vitamin D 1000 international units p.o. daily Zinc sulfate 220 mg p.o. daily Lovenox for prophylaxis keep here on 2nd floor COVID wing (2) Hypoxia: Plan: tachypneic today and using some accessory muscles on high flow lay on her side all the time except while eating, vazquez placed, give lasix to keep lungs dry today (3) Secondary bacterial pneumonia: Plan: 4 days of antibiotics doubt bacterial infection at this point, stopped antibiotics (4) Type 2 diabetes mellitus: Plan: Hold Metformin and glipizide Placed on Accu-Cheks before meals and at bedtime with NovoLog coverage per scale monitor for hypoglycemia, no episodes (5) Hyperlipidemia: Plan: Continue simvastatin 20 mg at bedtime (6) Depression with anxiety: Plan: Continue alprazolam, citalopram mood better today (7) Hypothyroidism: Plan: Continue levothyroxine (8) HTN (hypertension): Plan: Continue amlodipine, aspirin, and losartan (9) GERD (gastroesophageal reflux disease): Plan: Continue omeprazole/pantoprazole Admission and Anticipated Discharge Date Admission Date: April 10, 2021 Subjective Patient reports she is not proning but is lying on her side. Review of Systems Review of Systems: All systems reviewed & are unremarkable except as noted in HPI & below Physical Exam Physical Exam: General: well developed, obese, well nourished, no acute distress, comfortable Neck: supple, trachea midline, normal thyroid Lungs: crackles in bases, Heart: regular S1 and S2, no murmur, peripheral pulses normal, capillary refill normal, no edema Abdomen: soft, NT, ND, + BS, no hepatomegaly, normal to percussion Extremities: normal in appearance, no cyanosis, no petechiae, strength is 5/5 bilaterally Neuro: awake, cooperative, moves all extremities, no focal motor deficits, CN II-XII intact, sensation in extremities intact, normal speech Skin: warm, dry, no rash, normal turgor Psych: Awake, alert oriented x 3, euthymic affect Results & Data Results & Data ([facility]) Vital Signs (Past 12 Hours) Vital Signs Temp Pulse Resp BP Pulse Ox 04/18/21 19:24 36.3 C L 54 L 20 112/78 93 04/18/21 14:24 36.6 C 64 20 122/59 L 93 04/18/21 11:24 36.5 C 69 20 103/73 94 PG Care Time/CCT Total # of Minutes Spent Total Time Spent with Patient: Total time spent is greater than 50% in coordination of care (as documented) at patient's floor/unit and/or counseling patient: Coding Level of Care Code 02920 Subseq Hosp Care Lvl 2 Diagnoses Pneumonia due to COVID-19 virus U07.1; J12.82 Hypoxia R09.02 Secondary bacterial pneumonia J15.9 Type 2 diabetes mellitus E11.9 Diabetes mellitus complication status: without complication Diabetes mellitus manager terminal insulin use: without manager terminal use Hyperlipidemia E78.5 Hyperlipidemia type: unspecified Depression with anxiety F41.8 Hypothyroidism E03.9 Hypothyroidism type: unspecified HTN (hypertension) I10 GERD (gastroesophageal reflux disease) K21.9 Time Spent (min) 25 (1) Type 2 diabetes mellitus Diabetes mellitus complication status: without complication Diabetes mellitus manager terminal insulin use: without manager terminal use Qualified Code(s): E11.9 - Type 2 diabetes mellitus without complications (2) Hyperlipidemia Hyperlipidemia type: unspecified Qualified Code(s): E78.5 - Hyperlipidemia, unspecified (3) Hypothyroidism Hypothyroidism type: unspecified Qualified Code(s): E03.9 - Hypothyroidism, unspecified
[2021-04-19] MEDS: LEVOTHYROXINE SODIUM 150 MCG TABLET PO SCH (06:11)
[2021-04-19] MEDS: INSULIN ASPART 100 UNITS/ML 3 ML PEN SC SCH ×4 (08:29→21:04)
[2021-04-19 08:51] LABS: Hematocrit (blood only) 39.8 % (37-47); Hemoglobin 13.6 g/dL (12.0-16.0); Mean Corpuscular Hemoglobin 31.2 pg (25-34); Mean Corpuscular Hgb Conc 34.2 g/dL (32-36); Mean Corpuscular Volume 91.3 fL (80-100); Mean Platelet Volume 9.8 fL (7.4-10.4); Platelet Count 381 K/uL (130-400); RDW Coefficient of Variation 12.5 % (11.5-14.5); RDW Standard Deviation 41.9 fL (36.4-46.3); Red Blood Count 4.36 M/uL (4.2-5.4); White Blood Count 10.65 K/uL (4.8-10.8)
[2021-04-19] MEDS: POLYETHYLENE (MIRALAX) 17 GM PACK PO SCH (09:02)
[2021-04-19] MEDS: amLODIPine BESYLATE 5 MG TAB PO SCH (09:02)
[2021-04-19] MEDS: ZINC SULFATE 220 MG CAPSULE PO SCH (09:02)
[2021-04-19] MEDS: LOSARTAN POTASSIUM 50 MG TAB PO SCH (09:03)
[2021-04-19] MEDS: CHOLECALCIFEROL 1,000 UNITS 25 MCG TAB PO SCH (09:03)
[2021-04-19] MEDS: guaiFENesin 600 MG TABCR PO SCH ×2 (09:03→19:22)
[2021-04-19] MEDS: ASPIRIN 81 MG ECTAB PO SCH (09:03)
[2021-04-19] MEDS: BENZONATATE 100 MG CAPSULE PO SCH ×3 (09:03→19:23)
[2021-04-19] MEDS: PANTOprazole 40 MG TAB PO SCH (09:03)
[2021-04-19] MEDS: CITALOPRAM 40 MG TAB PO SCH (09:03)
[2021-04-19] MEDS: CELECOXIB 100 MG CAP PO SCH (09:04)
[2021-04-19] MEDS: dexAMETHasone 6 MG in SYRINGE 0 ML IV SCH (09:04)
[2021-04-19 09:15] LABS: BUN Creatinine Ratio 26.8 (10-20); C Reactive Protein 1.88 mg/dl (0-0.29); Calcium 9.4 mg/dl (8.5-10.1); Creatinine Clr Calc Pharmacy 54.2 ml/min; Est GFR (African American) 67.3 ml/min; Potassium 4.7 mmol/L (3.5-5.1)
[2021-04-19] MEDS: LETROZOLE 2.5 MG TAB PO SCH (09:30)
--- NOTE | 2021-04-19 11:22 | Hospitalist Progress Note ---
Date of Service April 19, 2021 Assessment & Plan (1) Pneumonia due to COVID-19 virus: Plan: Pneumonia due to COVID-19 virus/possible secondary bacterial pneumonia/hypoxia patient vaccinated with Pfizer July 2020 Patient is on high flow however now is on 8 liters. Will closely monitor. Dexamethasone 6 mg IV daily, day 10 today Remdesivir IV per protocol, completed stop antibiotics, do not suspect bacterial infection at this point Duonebs PRN only, no wheezing Guaifenesin extended release 600 mg p.o. twice daily Vitamin D 1000 international units p.o. daily Zinc sulfate 220 mg p.o. daily Lovenox for prophylaxis keep here on 2nd floor COVID wing (2) Hypoxia: Plan: tachypneic today and using some accessory muscles on high flow lay on her side all the time except while eating, vazquez placed, give lasix to keep lungs dry today (3) Secondary bacterial pneumonia: Plan: 4 days of antibiotics doubt bacterial infection at this point, stopped antibiotics (4) Type 2 diabetes mellitus: Plan: Hold Metformin and glipizide Placed on Accu-Cheks before meals and at bedtime with NovoLog coverage per scale monitor for hypoglycemia, no episodes (5) Hyperlipidemia: Plan: Continue simvastatin 20 mg at bedtime (6) Depression with anxiety: Plan: Continue alprazolam, citalopram mood better today (7) Hypothyroidism: Plan: Continue levothyroxine (8) HTN (hypertension): Plan: Continue amlodipine, aspirin, and losartan (9) GERD (gastroesophageal reflux disease): Plan: Continue omeprazole/pantoprazole Admission and Anticipated Discharge Date Admission Date: April 10, 2021 Subjective 80 yo female reports feeling better today. She has no new symptoms. Review of Systems Review of Systems: All systems reviewed & are unremarkable except as noted in HPI & below Physical Exam Physical Exam: General: well developed, obese, well nourished, no acute distress, comfortable Neck: supple, trachea midline, normal thyroid Lungs: crackles in bases, Heart: regular S1 and S2, no murmur, peripheral pulses normal, capillary refill normal, no edema Abdomen: soft, NT, ND, + BS, no hepatomegaly, normal to percussion Extremities: normal in appearance, no cyanosis, no petechiae, strength is 5/5 bilaterally Neuro: awake, cooperative, moves all extremities, no focal motor deficits, CN II-XII intact, sensation in extremities intact, normal speech Skin: warm, dry, no rash, normal turgor Psych: Awake, alert oriented x 3, euthymic affect Results & Data Results & Data ([facility]) Vital Signs (Past 12 Hours) Vital Signs Temp Pulse Pulse Resp BP Pulse Ox 04/19/21 08:35 42 L 04/19/21 07:32 36.3 C L 61 19 133/73 92 04/19/21 03:45 36.5 C 52 L 22 160/69 H 94 04/18/21 23:27 36.5 C 48 L 22 147/62 H 94 PG Care Time/CCT Total # of Minutes Spent Total Time Spent with Patient: Total time spent is greater than 50% in coordination of care (as documented) at patient's floor/unit and/or counseling patient: Coding Level of Care Code 07234 Subseq Hosp Care Lvl 2 Diagnoses Pneumonia due to COVID-19 virus U07.1; J12.82 Hypoxia R09.02 Secondary bacterial pneumonia J15.9 Type 2 diabetes mellitus E11.9 Diabetes mellitus complication status: without complication Diabetes mellitus maintenance mechanic helper insulin use: without maintenance mechanic helper use Hyperlipidemia E78.5 Hyperlipidemia type: unspecified Depression with anxiety F41.8 Hypothyroidism E03.9 Hypothyroidism type: unspecified HTN (hypertension) I10 GERD (gastroesophageal reflux disease) K21.9 Time Spent (min) 25 (1) Type 2 diabetes mellitus Diabetes mellitus complication status: without complication Diabetes mellitus maintenance mechanic helper insulin use: without halfway use Qualified Code(s): E11.9 - Type 2 diabetes mellitus without complications (2) Hyperlipidemia Hyperlipidemia type: unspecified Qualified Code(s): E78.5 - Hyperlipidemia, unspecified (3) Hypothyroidism Hypothyroidism type: unspecified Qualified Code(s): E03.9 - Hypothyroidism, unspecified
[2021-04-19] MEDS: ACETAMINOPHEN 325 MG TAB PO PRN ×2 (13:17→19:37)
[2021-04-19] MEDS: ENOXAPARIN INJ 40 MG/0.4 ML SYR SQ SCH (19:23)
[2021-04-19] MEDS: SIMVASTATIN 20 MG TAB PO SCH (19:23)
[2021-04-19] MEDS: DOCUSATE SODIUM 100 MG CAP PO PRN (19:37)
[2021-04-20] MEDS: LEVOTHYROXINE SODIUM 150 MCG TABLET PO SCH (05:54)
[2021-04-20] MEDS: INSULIN ASPART 100 UNITS/ML 3 ML PEN SC SCH ×4 (07:45→22:21)
[2021-04-20] MEDS: ASPIRIN 81 MG ECTAB PO SCH (08:35)
[2021-04-20] MEDS: CELECOXIB 100 MG CAP PO SCH (08:35)
[2021-04-20] MEDS: amLODIPine BESYLATE 5 MG TAB PO SCH (08:35)
[2021-04-20] MEDS: BENZONATATE 100 MG CAPSULE PO SCH ×3 (08:36→20:19)
[2021-04-20] MEDS: CITALOPRAM 40 MG TAB PO SCH (08:36)
[2021-04-20] MEDS: CHOLECALCIFEROL 1,000 UNITS 25 MCG TAB PO SCH (08:36)
[2021-04-20] MEDS: guaiFENesin 600 MG TABCR PO SCH ×2 (08:37→20:23)
[2021-04-20] MEDS: PANTOprazole 40 MG TAB PO SCH (08:37)
[2021-04-20] MEDS: LOSARTAN POTASSIUM 50 MG TAB PO SCH (08:37)
[2021-04-20] MEDS: dexAMETHasone 6 MG in SYRINGE 0 ML IV SCH (08:38)
[2021-04-20] MEDS: POLYETHYLENE (MIRALAX) 17 GM PACK PO SCH (08:38)
[2021-04-20] MEDS: ZINC SULFATE 220 MG CAPSULE PO SCH (08:38)
[2021-04-20] MEDS: LETROZOLE 2.5 MG TAB PO SCH (08:45)
[2021-04-20] MEDS ORDERED: PHARMACY GLYCEMIC MGMT CONSULT PRN (10:59)
--- NOTE | 2021-04-20 11:32 | Pharmacy Report ---
Pharmacy Glycemic Short Note 2 - Date of Service April 20, 2021 - Glycemic Short BSG Results (Last 24 hours): 04/19/21 04/19/21 04/19/21 11:52 16:07 19:34 POC Glucose 188 H 217 H 312 H* 04/20/21 07:36 POC Glucose 129 H OUTPATIENT ANTIDIABETIC REGIMEN: * Metformin * A1c = 6.9% on 04/11/21 ASSESSMENT: * 80yo T2DM female on metformin monotherapry with adequate outpatient control per recent A1c * Pt with sustained moderate-severe hyperglycemia secondary to dexamethasone for COVID-19 * Will tighten CF/CR only as AM fasting BSG is in goal range. If this does not improve BSGs today will add weight based dose of NPH tomorrow with dexamethasone. PLAN FOR INPATIENT GLYCEMIC CONTROL: * Hold outpatient oral diabetes medications * Basal insulin * Hold for now * Bolus insulin * NovoLog per scale ACHS or Q6hrs while NPO * Goal Range: Low 110 mg/dL - High 140 mg/dL * Correction Factor: 20 mg/dL/unit * Nutritional / Prandial insulin per carb ratio of 1 unit per 7 grams CHO consumed PLAN FOR DISCHARGE: * No changes needed at DC as A1c is in goal range. May need adjustments if steroids are continued at dc.
[2021-04-20] MEDS: ACETAMINOPHEN 325 MG TAB PO PRN (13:46)
[2021-04-20] MEDS: ENOXAPARIN INJ 40 MG/0.4 ML SYR SQ SCH (20:21)
[2021-04-20] MEDS: SIMVASTATIN 20 MG TAB PO SCH (20:23)
--- NOTE | 2021-04-20 20:25 | Hospitalist Progress Note ---
Date of Service April 20, 2021 Assessment & Plan (1) Pneumonia due to COVID-19 virus: Plan: Pneumonia due to COVID-19 virus/possible secondary bacterial pneumonia/hypoxia patient vaccinated with Pfizer July 2020 Patient is on high flow however now is on 7 liters. Decreased from yesterday at 8. Will closely monitor. Dexamethasone 6 mg IV daily, day 10 today Remdesivir IV per protocol, completed stop antibiotics, do not suspect bacterial infection at this point Duonebs PRN only, no wheezing Guaifenesin extended release 600 mg p.o. twice daily Vitamin D 1000 international units p.o. daily Zinc sulfate 220 mg p.o. daily Lovenox for prophylaxis keep here on 2nd floor COVID wing (2) Hypoxia: Plan: tachypneic today and using some accessory muscles on high flow lay on her side all the time except while eating, vazquez placed, give lasix to keep lungs dry today (3) Secondary bacterial pneumonia: Plan: 4 days of antibiotics doubt bacterial infection at this point, stopped antibiotics (4) Type 2 diabetes mellitus: Plan: Hold Metformin and glipizide Placed on Accu-Cheks before meals and at bedtime with NovoLog coverage per scale monitor for hypoglycemia, no episodes (5) Hyperlipidemia: Plan: Continue simvastatin 20 mg at bedtime (6) Depression with anxiety: Plan: Continue alprazolam, citalopram mood better today (7) Hypothyroidism: Plan: Continue levothyroxine (8) HTN (hypertension): Plan: Continue amlodipine, aspirin, and losartan (9) GERD (gastroesophageal reflux disease): Plan: Continue omeprazole/pantoprazole Admission and Anticipated Discharge Date Admission Date: April 10, 2021 Subjective Patient reports breathing better. Review of Systems Review of Systems: All systems reviewed & are unremarkable except as noted in HPI & below Physical Exam Physical Exam: General: well developed, obese, well nourished, no acute distress, comfortable Neck: supple, trachea midline, normal thyroid Lungs: crackles in bases, Heart: regular S1 and S2, no murmur, peripheral pulses normal, capillary refill normal, no edema Abdomen: soft, NT, ND, + BS, no hepatomegaly, normal to percussion Extremities: normal in appearance, no cyanosis, no petechiae, strength is 5/5 bilaterally Neuro: awake, cooperative, moves all extremities, no focal motor deficits, CN II-XII intact, sensation in extremities intact, normal speech Skin: warm, dry, no rash, normal turgor Psych: Awake, alert oriented x 3, euthymic affect Results & Data Results & Data ([facility]) Vital Signs (Past 12 Hours) Vital Signs Temp Pulse Resp BP Pulse Ox 04/20/21 15:09 36.8 C 61 18 127/64 93 04/20/21 11:47 37.4 C 57 L 20 117/91 93 PG Care Time/CCT Total # of Minutes Spent Total Time Spent with Patient: Total time spent is greater than 50% in coordination of care (as documented) at patient's floor/unit and/or counseling patient: Coding Level of Care Code 92520 Subseq Hosp Care Lvl 2 Diagnoses Pneumonia due to COVID-19 virus U07.1; J12.82 Hypoxia R09.02 Secondary bacterial pneumonia J15.9 Type 2 diabetes mellitus E11.9 Diabetes mellitus complication status: without complication Diabetes mellitus forgeman helper insulin use: without assisted use Hyperlipidemia E78.5 Hyperlipidemia type: unspecified Depression with anxiety F41.8 Hypothyroidism E03.9 Hypothyroidism type: unspecified HTN (hypertension) I10 GERD (gastroesophageal reflux disease) K21.9 Time Spent (min) 25 (1) Type 2 diabetes mellitus Diabetes mellitus complication status: without complication Diabetes mellitus forgeman helper insulin use: without assisted use Qualified Code(s): E11.9 - Type 2 diabetes mellitus without complications (2) Hyperlipidemia Hyperlipidemia type: unspecified Qualified Code(s): E78.5 - Hyperlipidemia, unspecified (3) Hypothyroidism Hypothyroidism type: unspecified Qualified Code(s): E03.9 - Hypothyroidism, unspecified
[2021-04-20] MEDS: MELATONIN 3 MG TAB PO PRN (22:03)
[2021-04-21] MEDS: LEVOTHYROXINE SODIUM 150 MCG TABLET PO SCH (06:32)
[2021-04-21 07:26] LABS: Hemoglobin 12.3 g/dL (12.0-16.0); Mean Corpuscular Hemoglobin 30.7 pg (25-34); Mean Corpuscular Hgb Conc 34.2 g/dL (32-36); Mean Corpuscular Volume 89.8 fL (80-100); Mean Platelet Volume 9.9 fL (7.4-10.4); Platelet Count 320 K/uL (130-400); RDW Coefficient of Variation 12.7 % (11.5-14.5); RDW Standard Deviation 41.6 fL (36.4-46.3); Red Blood Count 4.01 M/uL (4.2-5.4); White Blood Count 9.16 K/uL (4.8-10.8)
[2021-04-21 07:46] LABS: Creatinine Clr Calc Pharmacy 50.6 ml/min; Est GFR (African American) 61.6 ml/min; Est GFR (Non-African American) 53.2 ml/min; Potassium 4.5 mmol/L (3.5-5.1)
[2021-04-21 07:50] LABS: C Reactive Protein 0.45 mg/dl (0-0.29)
[2021-04-21] MEDS ORDERED: INSULIN HUMAN NPH SC SCH (09:00)
[2021-04-21] MEDS: POLYETHYLENE (MIRALAX) 17 GM PACK PO SCH ×2 (09:10→21:18)
[2021-04-21] MEDS: dexAMETHasone 6 MG in SYRINGE 0 ML IV SCH (09:10)
[2021-04-21] MEDS: DOCUSATE SODIUM 100 MG CAP PO PRN (09:10)
[2021-04-21] MEDS: LOSARTAN POTASSIUM 50 MG TAB PO SCH (09:11)
[2021-04-21] MEDS: CELECOXIB 100 MG CAP PO SCH (09:11)
[2021-04-21] MEDS: amLODIPine BESYLATE 5 MG TAB PO SCH (09:11)
[2021-04-21] MEDS: BENZONATATE 100 MG CAPSULE PO SCH ×3 (09:12→21:17)
[2021-04-21] MEDS: ZINC SULFATE 220 MG CAPSULE PO SCH (09:12)
[2021-04-21] MEDS: CHOLECALCIFEROL 1,000 UNITS 25 MCG TAB PO SCH (09:12)
[2021-04-21] MEDS: CITALOPRAM 40 MG TAB PO SCH (09:12)
[2021-04-21] MEDS: guaiFENesin 600 MG TABCR PO SCH ×2 (09:12→21:20)
[2021-04-21] MEDS: PANTOprazole 40 MG TAB PO SCH (09:13)
[2021-04-21] MEDS: ASPIRIN 81 MG ECTAB PO SCH (09:13)
[2021-04-21] MEDS: LETROZOLE 2.5 MG TAB PO SCH (09:13)
[2021-04-21] MEDS: INSULIN ASPART 100 UNITS/ML 3 ML PEN SC SCH ×4 (09:16→21:00)
--- NOTE | 2021-04-21 12:00 | Pharmacy Report ---
Pharmacy Glycemic Short Note 2 - Date of Service April 21, 2021 - Glycemic Short BSG Results (Last 24 hours): 04/20/21 04/20/21 04/20/21 11:45 16:38 20:33 Glucose POC Glucose 192 H 226 H 203 H 04/21/21 04/21/21 06:57 07:55 Glucose 121 H POC Glucose 119 H OUTPATIENT ANTIDIABETIC REGIMEN: * Metformin * A1c = 6.9% on 04/11/21 ASSESSMENT: 04/21 * Pt has received 34 units of insulin over the past 24hrs * 0 units of basal * 34 units of bolus with NovoLog * BSGs [phone] mg/dl * All bsgs elevated after receiving dex despite aggressive CF/CR. Will add weight based NPH for dex and loosen CF/CR slightly 04/20 * 80yo T2DM female on metformin monotherapry with adequate outpatient control per recent A1c * Pt with sustained moderate-severe hyperglycemia secondary to dexamethasone for COVID-19 * Will tighten CF/CR only as AM fasting BSG is in goal range. If this does not improve BSGs today will add weight based dose of NPH tomorrow with dexamethasone. PLAN FOR INPATIENT GLYCEMIC CONTROL: * Hold outpatient oral diabetes medications * Basal insulin * NPH 34 units SQ daily with dexamethasone * hold if dex held or dc * Bolus insulin * NovoLog per scale ACHS or Q6hrs while NPO * Goal Range: Low 110 mg/dL - High 140 mg/dL * Correction Factor: 25 mg/dL/unit * Nutritional / Prandial insulin per carb ratio of 1 unit per 8 grams CHO consumed PLAN FOR DISCHARGE: * No changes needed at DC as A1c is in goal range. May need adjustments if steroids are continued at dc.
--- NOTE | 2021-04-21 20:52 | Hospitalist Progress Note ---
Date of Service April 21, 2021 Assessment & Plan (1) Pneumonia due to COVID-19 virus: Plan: Pneumonia due to COVID-19 virus/possible secondary bacterial pneumonia/hypoxia patient vaccinated with Pfizer July 2020 Patient is on nasal cannula. Will decrease to 3 liters while in room. Monitored patient and she tolerated it. Will remain at 3 liters. If this is the case, may consider discharge within next 24-48 hours. Will closely monitor. Dexamethasone 6 mg IV daily, will stop dexamethasone today. Remdesivir IV per protocol, completed stop antibiotics, do not suspect bacterial infection at this point Duonebs PRN only, no wheezing Guaifenesin extended release 600 mg p.o. twice daily Vitamin D 1000 international units p.o. daily Zinc sulfate 220 mg p.o. daily Lovenox for prophylaxis keep here on 2nd floor COVID wing (2) Hypoxia: Plan: tachypneic today and using some accessory muscles on high flow lay on her side all the time except while eating, vazquez placed, give lasix to keep lungs dry today (3) Secondary bacterial pneumonia: Plan: 4 days of antibiotics doubt bacterial infection at this point, stopped antibiotics (4) Type 2 diabetes mellitus: Plan: Hold Metformin and glipizide Placed on Accu-Cheks before meals and at bedtime with NovoLog coverage per scale monitor for hypoglycemia, no episodes (5) Hyperlipidemia: Plan: Continue simvastatin 20 mg at bedtime (6) Depression with anxiety: Plan: Continue alprazolam, citalopram mood better today (7) Hypothyroidism: Plan: Continue levothyroxine (8) HTN (hypertension): Plan: Continue amlodipine, aspirin, and losartan (9) GERD (gastroesophageal reflux disease): Plan: Continue omeprazole/pantoprazole Admission and Anticipated Discharge Date Admission Date: April 10, 2021 Subjective Patient is doing well. She is ambulating in the room. She has been on 7 liters. Review of Systems Review of Systems: All systems reviewed & are unremarkable except as noted in HPI & below Physical Exam Physical Exam: General: well developed, obese, well nourished, no acute distress, comfortable Neck: supple, trachea midline, normal thyroid Lungs: crackles in bases, Heart: regular S1 and S2, no murmur, peripheral pulses normal, capillary refill normal, no edema Abdomen: soft, NT, ND, + BS, no hepatomegaly, normal to percussion Extremities: normal in appearance, no cyanosis, no petechiae, strength is 5/5 bilaterally Neuro: awake, cooperative, moves all extremities, no focal motor deficits, CN II-XII intact, sensation in extremities intact, normal speech Skin: warm, dry, no rash, normal turgor Psych: Awake, alert oriented x 3, euthymic affect Results & Data Results & Data ([facility]) Vital Signs (Past 12 Hours) Vital Signs Temp Pulse Pulse Resp BP Pulse Ox 04/21/21 20:08 36.2 C L 53 L 18 129/68 94 04/21/21 16:42 37.0 C 56 L 21 113/59 L 94 04/21/21 16:00 59 L 04/21/21 12:12 37.0 C 61 19 130/63 97 PG Care Time/CCT Total # of Minutes Spent Total Time Spent with Patient: Total time spent is greater than 50% in coordination of care (as documented) at patient's floor/unit and/or counseling patient: Coding Level of Care Code 02252 Subseq Hosp Care Lvl 2 Diagnoses Pneumonia due to COVID-19 virus U07.1; J12.82 Hypoxia R09.02 Secondary bacterial pneumonia J15.9 Type 2 diabetes mellitus E11.9 Diabetes mellitus complication status: without complication Diabetes mellitus intermediate insulin use: without intermediate use Hyperlipidemia E78.5 Hyperlipidemia type: unspecified Depression with anxiety F41.8 Hypothyroidism E03.9 Hypothyroidism type: unspecified HTN (hypertension) I10 GERD (gastroesophageal reflux disease) K21.9 Time Spent (min) 25 (1) Type 2 diabetes mellitus Diabetes mellitus complication status: without complication Diabetes mellitus intermediate insulin use: without intermodal owner operator truck driver use Qualified Code(s): E11.9 - Type 2 diabetes mellitus without complications (2) Hyperlipidemia Hyperlipidemia type: unspecified Qualified Code(s): E78.5 - Hyperlipidemia, unspecified (3) Hypothyroidism Hypothyroidism type: unspecified Qualified Code(s): E03.9 - Hypothyroidism, unspecified
[2021-04-21] MEDS: MELATONIN 3 MG TAB PO PRN (21:17)
[2021-04-21] MEDS: ENOXAPARIN INJ 40 MG/0.4 ML SYR SQ SCH (21:19)
[2021-04-21] MEDS: SIMVASTATIN 20 MG TAB PO SCH (21:20)
[2021-04-22] MEDS: LEVOTHYROXINE SODIUM 150 MCG TABLET PO SCH (06:19)
[2021-04-22] MEDS: guaiFENesin 600 MG TABCR PO SCH (08:51)
[2021-04-22] MEDS: POLYETHYLENE (MIRALAX) 17 GM PACK PO SCH (08:52)
[2021-04-22] MEDS: ZINC SULFATE 220 MG CAPSULE PO SCH (08:52)
[2021-04-22] MEDS: CITALOPRAM 40 MG TAB PO SCH (08:52)
[2021-04-22] MEDS: BENZONATATE 100 MG CAPSULE PO SCH ×2 (08:52→13:28)
[2021-04-22] MEDS: amLODIPine BESYLATE 5 MG TAB PO SCH (08:53)
[2021-04-22] MEDS: ASPIRIN 81 MG ECTAB PO SCH (08:53)
[2021-04-22] MEDS: PANTOprazole 40 MG TAB PO SCH (08:53)
[2021-04-22] MEDS: LOSARTAN POTASSIUM 50 MG TAB PO SCH (08:53)
[2021-04-22] MEDS: CELECOXIB 100 MG CAP PO SCH (08:53)
[2021-04-22] MEDS: LETROZOLE 2.5 MG TAB PO SCH (08:54)
[2021-04-22] MEDS: CHOLECALCIFEROL 1,000 UNITS 25 MCG TAB PO SCH (08:54)
[2021-04-22] MEDS: INSULIN ASPART 100 UNITS/ML 3 ML PEN SC SCH ×2 (08:55→13:34)
--- NOTE | 2021-04-22 12:09 | Pharmacy Report ---
Pharmacy Glycemic Short Note 2 - Date of Service April 22, 2021 - Glycemic Short BSG Results (Last 24 hours): 04/21/21 04/21/21 04/21/21 12:09 16:47 20:11 POC Glucose 184 H 242 H 188 H 04/22/21 04/22/21 07:56 11:53 POC Glucose 95 189 H OUTPATIENT ANTIDIABETIC REGIMEN: * Metformin * A1c = 6.9% on 04/11/21 ASSESSMENT: 04/22 * Dexamethasone dc today- will dc NPH accordingly * AM fasting BSG in goal range without basal insulin - will continue bolus insulin monotherapy and titrate based on BSGs 04/21 * Pt has received 34 units of insulin over the past 24hrs * 0 units of basal * 34 units of bolus with NovoLog * BSGs [phone] mg/dl * All bsgs elevated after receiving dex despite aggressive CF/CR. Will add weight based NPH for dex and loosen CF/CR slightly 04/20 * 80yo T2DM female on metformin monotherapry with adequate outpatient control per recent A1c * Pt with sustained moderate-severe hyperglycemia secondary to dexamethasone for COVID-19 * Will tighten CF/CR only as AM fasting BSG is in goal range. If this does not improve BSGs today will add weight based dose of NPH tomorrow with dexamethasone. PLAN FOR INPATIENT GLYCEMIC CONTROL: * Hold outpatient oral diabetes medications * Basal insulin * DC; dexamethasone dc * Bolus insulin * NovoLog per scale ACHS or Q6hrs while NPO * Goal Range: Low 110 mg/dL - High 140 mg/dL * Correction Factor: 25 mg/dL/unit * Nutritional / Prandial insulin per carb ratio of 1 unit per 7 grams CHO consumed PLAN FOR DISCHARGE: * No changes needed at DC as A1c is in goal range. May need adjustments if steroids are continued at dc.
[2021-04-22] MEDS: ACETAMINOPHEN 325 MG TAB PO PRN (13:27)
--- NOTE | 2021-04-22 15:38 | Discharge Summary ---
Date of Service April 22, 2021 Admission HPI Per Admitting Provider The patient is an 80-year-old female with a past medical history including mitral vegetation, aortic stenosis, vertebral artery stenosis, BPPV, bladder prolapse, recurrent urinary tract infection, status post right mastectomy, diabetes mellitus, knee, depression with anxiety, hypothyroidism, right breast cancer and hypertension. She presents to the emergency department with symptoms as noted above. Pulse ox 87% on room air, improving to 91% on 2 L. Patient was COVID-19 positive in the ED, and given dexamethasone 10 mg IV by the ED. Principal Diagnosis COVID 19 pneumonia Discharge Exam General: well developed, obese, well nourished, no acute distress, comfortable Neck: supple, trachea midline, normal thyroid Lungs: crackles in bases, Heart: regular S1 and S2, no murmur, peripheral pulses normal, capillary refill normal, no edema Abdomen: soft, NT, ND, + BS, no hepatomegaly, normal to percussion Extremities: normal in appearance, no cyanosis, no petechiae, strength is 5/5 bilaterally Neuro: awake, cooperative, moves all extremities, no focal motor deficits, CN II-XII intact, sensation in extremities intact, normal speech Skin: warm, dry, no rash, normal turgor Psych: Awake, alert oriented x 3, euthymic affect Discharge Data Allergies Allergy/AdvReac Type Severity Reaction Status Date / Time Sulfa (Sulfonamide Allergy Intermediate HIVES Verified 04/10/21 22:57 Antibiotics) sulfamethoxazole AdvReac Intermediate Hives Verified 04/10/21 22:57 [From Bactrim] trimethoprim [From Bactrim] AdvReac Intermediate Hives Verified 04/10/21 22:57 Consultations 04/10/21 22:54 ED Decision to Admit Stat Hospital Course (1) Pneumonia due to COVID-19 virus: Pneumonia due to COVID-19 virus/possible secondary bacterial pneumonia/hypoxia patient vaccinated with Pfizer July 2020 Patient is on nasal cannula. Will decrease to 3 liters while in room. Monitored patient and she tolerated it. Patient continued to improve. She peaked near 15 liters nasal cannula. She received about 11 doses of decadron 6 mg IV daily. Patient passed 2 step and will require 2 liters of oxygen on ambulation. Remdesivir IV per protocol, completed Did not suspect bacterial infection Duonebs PRN only, no wheezing Guaifenesin extended release 600 mg p.o. twice daily Vitamin D 1000 international units p.o. daily Zinc sulfate 220 mg p.o. daily Lovenox for prophylaxis (2) Hypoxia: tachypneic today and using some accessory muscles on high flow during hospital stay, titrated down. (3) Secondary bacterial pneumonia: 4 days of antibiotics doubt bacterial infection at this point, stopped antibiotics (4) Type 2 diabetes mellitus: Hold Metformin and glipizide Placed on Accu-Cheks before meals and at bedtime with NovoLog coverage per scale monitor for hypoglycemia, no episodes (5) Hyperlipidemia: Continue simvastatin 20 mg at bedtime (6) Depression with anxiety: Continue alprazolam, citalopram mood better today (7) Hypothyroidism: Continue levothyroxine (8) HTN (hypertension): Continue amlodipine, aspirin, and losartan (9) GERD (gastroesophageal reflux disease): Continue omeprazole/pantoprazole Patient had a BM during hospital stay Total Time Total Time Spent Total Time Spent (In Minutes): 32 Discharge Plan Discharge Items Patient Disposition: Home - Home Health Services Reason For Visit: COVID-19 PNA WITH HYPOXIA, SECONDARY BACTERIAL PNA Discharge Diagnosis: COVID 19 Activity: Resume your previous activity Non-emergency contact: Primary Care Provider Call non-emergency contact if: you have any medication questions Follow-up/Referrals: Beka Anaya MD [Primary Care Provider] - 05/02/21 8:00 am (FOLLOW UP with Josh Mckenna May 02 8 am) Diet: Carb Consistent or DM2 and Heart Healthy Addtl Attending Provider Instructions: You were treated for COVID 19. You had a pneumonia. This was treated and thankfully your oxygen levels have improved. You required 15 liters nasal cannula, but are now only on 2 liters on ambulation. This is a fantastic improvement. Followup with PCP in 1-2 weeks. Pending Studies at Discharge: No Stand-Alone Forms: [employer], Smoking Cessation Medications and DC Order Prescriptions: New benzonatate [Tessalon Perles] 100 mg Capsule 100 mg PO TID PRN (Reason: cough) 10 Days Qty: 30 RF: 0 guaifenesin [Mucinex] 600 mg Tablet Extended Release 12hr 1,200 mg PO Q12 Qty: 20 RF: 0 Continued omeprazole 20 mg capsule,delayed release(DR/EC) 20 mg PO DAILY Qty: 90 RF: 3 losartan 100 mg tablet 100 mg PO DAILY Qty: 90 RF: 3 methenamine hippurate 1 gram tablet 1 g PO DAILY Qty: 90 RF: 3 amlodipine 10 mg tablet 10 mg PO DAILY Qty: 30 RF: 5 citalopram 40 mg tablet 40 mg PO DAILY Qty: 90 RF: 3 meclizine 12.5 mg tablet 12.5 mg PO Q6H PRN (Reason: dizziness) Qty: 30 RF: 0 (DME) blood sugar diagnostic Strip See Rx Instructions .ROUTE .MEDSUPPLY Qty: 100 RF: 5 levothyroxine 150 mcg tablet 150 mcg PO DAILY Qty: 90 RF: 3 levothyroxine 25 mcg tablet 25 mcg PO 2XWK Qty: 20 RF: 3 alprazolam 0.25 mg tablet 0.25 mg PO DAILY PRN (Reason: anxiety) Qty: 30 RF: 0 simvastatin 20 mg tablet 20 mg PO HS Qty: 90 RF: 3 celecoxib 100 mg capsule 100 mg PO DAILY Qty: 30 RF: 5 letrozole [Femara] 2.5 mg tablet 2.5 mg PO DAILY Qty: 30 RF: 2 aspirin 81 mg Tablet,Delayed Release (Dr/Ec) 81 mg PO QAM Qty: 30 RF: 0 metformin 500 mg tablet See Rx Instructions .ROUTE .COMPLEX RF: 0 glipizide 5 mg tablet 2.5 mg PO BIDM RF: 0 Discharge Orders: Discharge Order (Routine); Ordered 04/22/21 Ordered By: Maninder Alicia/Other Patient Handouts: A1C, Managing Type 2 Diabetes Admission Data Admit Date/Time: 04/10/21 23:37 Attending Provider: Maninder Jacques Admit Provider: Alvarez Razo Primary Care Provider: Beka Anaya V. Other Providers: Alvarez Razo ; Manish Bunn [facility] Other Interventions: Discharge Summary Assessment (RN) Last Done: 04/22/21 15:36 Coding Level of Care Code D/C DAY MANAGEMENT >30 MINS Diagnoses Pneumonia due to COVID-19 virus U07.1; J12.82 Hypoxia R09.02 Secondary bacterial pneumonia J15.9 Type 2 diabetes mellitus E11.9 Diabetes mellitus complication status: without complication 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: without superintendent marine oil terminal use Hyperlipidemia E78.5 Hyperlipidemia type: unspecified Depression with anxiety F41.8 Hypothyroidism E03.9 Hypothyroidism type: unspecified HTN (hypertension) I10 GERD (gastroesophageal reflux disease) K21.9 Time Spent (min) 32
== END 2021-04-22 17:55 | disposition home health service (06) | DRG 177 ==
LOC: ED 21:18 → SUATTDRO 23:37 → 2S 23:37